=== PATIENT | male | born 1945 | race Caucasian/White ===

== ENCOUNTER 2016-11-15 12:14 | Inpatient (IN) | payer MEDICARE, OTHER ==
[~2016-11-15] VITALS: Ht 167.6 cm; Wt 66.0 kg
[~2016-11-15 12:14] MED LIST changes: -AMLO10TA2 PO; -ATOR1TAB19 PO; -CELE10TA PO; -CIPR500T3 PO; -FAMO1TAB11 PO; -FAMO1TAB25 PO; -LEVE1INJ5 SC; -METO50TA7 PO
[2016-11-15] MEDS ORDERED: FAMO1TAB25 PO (12:26)
[2016-11-15] MEDS ORDERED: LEVE1INJ5 SC ×2 (12:26→15:16)
[2016-11-15 13:30] LABS: BASO # 0.1 10^3/uL (0.0-0.2); BASO % 0.4 % (0.0-1.0); EOS # 0.5 10^3/uL (0.0-0.50); EOS % 4.8 % (0.0-3.0); IMMATURE GRANULOCYTE % 0.4 % (0-0); LYMPH # 3.2 10^3/uL (1.5-4.5); LYMPH % 28.1 % (24.0-44.0); MEAN CORPUSCULAR HEMOGLOBIN 27.6 pg (27.0-33.0); MEAN CORPUSCULAR HGB CONC 32.3 g/dl (32.0-36.5); MEAN CORPUSCULAR VOLUME 85.5 fl (80.0-96.0); MONO # 0.8 10^3/uL (0.0-0.8); MONO % 7.2 % (0.0-5.0); NEUTROPHILS # 6.6 10^3/uL (1.8-7.7); NEUTROPHILS % 59.1 % (36.0-66.0); PLATELET COUNT, AUTOMATED 414 10^3/uL (150-450); RED CELL DISTRIBUTION WIDTH 14.6 % (11.5-14.5); WHITE BLOOD COUNT 11.2 10^3/uL (4.0-10.0)
[2016-11-15] MEDS: NS 1,000 ML IV SCH ×2 (13:40→15:42)
[2016-11-15 13:57] LABS: ANION GAP 4 MEQ/L (8-16); BLOOD UREA NITROGEN 41 MG/DL (7-18); CARBON DIOXIDE LEVEL 27 MEQ/L (21-32); CHLORIDE LEVEL 100 MEQ/L (98-107); CREATININE FOR GFR 2.86 MG/DL (0.70-1.30); GLOMERULAR FILTRATION RATE 23.4 (>42); GLUCOSE, FASTING 361 MG/DL (83-110); SODIUM LEVEL 131 MEQ/L (136-145)
[2016-11-15 14:14] LABS: POTASSIUM SERUM 5.8 MEQ/L (3.5-5.1)
--- NOTE | 2016-11-15 15:12 | HPEPDOC ---
[facility] Medical History & Physical Date of Admission Nov 15, 2016 History and Physical ATTENDING: PCP: Nicolette Feldman [employer] Urologist. Dr Castorena/ Dr Samia Lind. Heme/Onc. Dr Jorge CC: abnormal labs HPI: 70yoM with a past medical history significant for prostate Ca, ureteral obstruction, h/o Rt Nephrostomy tube as per Urology [place] 07/05. Pt states is was due to be changed 10/05 but that was postponed related to scheduling issues. Pt was referred to Heme/Onc as per Dr Castorena related to Prostate Ca. Appt was today, following labs her was referred to ED related to abnormal values. Pt states his nephrostomy tube has been draining normally. He has had no urinary complaints, pain, change in color or odor and no drainage or erythema at nephrostomy site. Denies any fevers, chills, weakness, fatigue, DOLAN, CP, SOB, cough, palpitations, abdominal pain, N/V/D or changes in bowel or bladder habits. Upon presentation to the hospital the patient was found to have hyperkalemia/EZRA , thus the hospitalist team was consulted. PMHx: CAD/CABG/ID x 2 Ureteral obstruction/Rt ureteral stent 10/04 Urinary retention prostatitis BPH Prostate CA HLD hypokalemia COPD PAF IDDM depression GERD PSHX: CABG RLE fx repair cholecystectomy Cystoscopy, electrovaporization prostate, retrograde pyelogram, Ureteral stent Rt 10/04. Raffaele. Left nephrostomy tube 07/05. Urology [facility] SOCHX: Resides in: [facility] Marital Status: Kids: none Employment: retired [employer] Tobacco use: quit 30 years ago ETOH: denies Illicit Drugs: Denies Advanced directives: MOLST not available, states DNR FAMHX: Mother: breast Ca Father stomach Ca Siblings: Alive, DM, CVA ROS: As noted in HPI, otherwise 11pt ROS of systems reviewed and unremarkable. PE: GEN: 70yoM, appears stated age. Well-nourished, well developed. No acute distress. Alert and oriented x 3. Pleasant, interactive. HEENT: Normocephalic, atraumatic. Pupils are equal, round, and reactive to light. Extraocular movements are intact. No nystagmus appreciated. Sclera are nonicteric. Conjunctiva without injection. Nose midline. Nasal turbinates without bogginess. EACs both patent BL. TMs both visualized and flynn with good cone of light, no bulging or erythema. No facial asymmetry. Moist mucous membranes. Dentition fair. Pharynx pink and moist, no cobblestoning. Neck supple , trachea midline. No lymphadenopathy or thyromegaly appreciated. CHEST: Regular rate and rhythm, +S1, +S2 LUNGS: Clear to auscultation bilaterally. No wheezes, rales, or rhonchi. Breathing appears symmetric and easy. Patient is speaking in full sentences. No accessory muscle use. ABD: Round, soft, non-tender, non-distended. +Bowel sounds throughout. No rebound or guarding. No costovertebral angle tenderness. Nephrostomy tube present left side draining urine. EXT: Pulses 2+ bilaterally dorsalis pedis and radial. No lower extremity edema appreciated. SKIN: Rawson, dry, warm. Capillary refill <2sec. No rashes. NEURO: Alert and oriented x 3. Cranial nerves III-XII are intact. No focal deficits appreciated. CXR: pending EKG: SB 51 bpm. A&P: 70yoM with a past medical history significant for prostate Ca, ureteral obstruction, h/o Rt Nephrostomy tube as per Urology [place] 07/05. Pt states is was due to be changed 10/05 but that was postponed related to scheduling issues. Pt was referred to Heme/Onc as per Dr Castorena related to Prostate Ca. Appt was today, following labs her was referred to ED related to abnormal values. 1. The patient will be admitted to PCU for at least [address] Collins's service. Pt is discussed with Dr Irby. 2. EZRA. SCr 2.86. Previous baseline in the system was 0.8. UC/BC pending. IVF x 1 liter in ED. Cont with IVF at 75cc/hr. CT A&P pending to evaluate for obstruction given extensive history. Per patient, nephrostomy tube has been draining as usual. 3. Hyperkalemia. Kayexalate 15gm x 1, recheck at 6 pm. Likely related to EZRA. 4. Hyponatremia. IVF x 1 liter in ED. IVF at 75cc/hr. Recheck labs at 6pm. 5. H/O Ureteral obstruction/Nephrostomy tube 07/05. Pt states was due to be changed 10/05 but that this was rescheduled and has appt at [facility] next week to be changed. Consider Urology Clt pending CT results. 6. H/O BPH/Prostate Ca. Flomax/Proscar. Currently has been receiving injection Q6mo as per Urology in [place]. Was referred to Dr Jorge for opinion today. 7. CAD/ID/CABG. Metoprolol with hold parameters/ [id number]/Statin. 8. HTN. Metoprolol/Norvasc with hold parameters, SBP 145 in ED. 9. HLD. Statin. 10. IDDM. CC diet. Levemir/SSI 11. PAF. EKG Sinus rhythm. 12. depression. Celexa. 13. GERD. Pepcid. DVT prophylaxis. The patient is a DNR per pt, copy of MOLST requested. Vital Signs Vital Signs Date Time Temp Pulse Resp B/P (MAP) Pulse Ox O2 Delivery O2 Flow Rate FiO2 11/15/16 13:59 50 97 11/15/16 13:58 11/15/16 12:14 97.2 16 Room Air Laboratory Data Labs 24H Laboratory Tests 2 11/15/16 13:18: White Blood Count 11.2H, Red Blood Count 3.66L, Hemoglobin 10.1L, Hematocrit 31.3L, Mean Corpuscular Volume 85.5, Mean Corpuscular Hemoglobin 27.6, Mean Corpuscular Hemoglobin Concent 32.3, Red Cell Distribution Width 14.6H, Platelet Count 414, Neutrophils (%) (Auto) 59.1, Lymphocytes (%) (Auto) 28.1, Monocytes (%) (Auto) 7.2H, Eosinophils (%) (Auto) 4.8H, Basophils (%) (Auto) 0.4 , Neutrophils # (Auto) 6.6, Lymphocytes # (Auto) 3.2, Monocytes # (Auto) 0.8, Eosinophils # (Auto) 0.5, Basophils # (Auto) 0.1, Immature Granulocyte # (Auto) 0.0, Nucleated Red Blood Cells % (auto) 0.0, Anion Gap 4L, Glomerular Filtration Rate 23.4L, Blood Urea Nitrogen 41H, Creatinine 2.86H, Sodium Level 131L, Potassium Level 5.8H, Chloride Level 100, Carbon Dioxide Level 27, Calcium Level 9.0, Total Creatine Kinase 72, Creatine Kinase MB 1.0, Creatine Kinase MB Relative Index 1.38, Troponin I < 0.02, Lipase 125, Thyroid Stimulating Hormone (TSH) 1.680 CBC/BMP Laboratory Tests 11/15/16 13:18 Red Blood Count 3.66 L, Mean Corpuscular Volume 85.5, Mean Corpuscular Hemoglobin 27.6, Mean Corpuscular Hemoglobin Concent 32.3, Red Cell Distribution Width 14.6 H, Neutrophils (%) (Auto) 59.1, Lymphocytes (%) (Auto) 28.1, Monocytes (%) (Auto) 7.2 H, Eosinophils (%) (Auto) 4.8 H, Basophils (%) ( Auto) 0.4, Neutrophils # (Auto) 6.6, Lymphocytes # (Auto) 3.2, Monocytes # (Auto ) 0.8, Eosinophils # (Auto) 0.5, Basophils # (Auto) 0.1, Calcium Level 9.0, Total Creatine Kinase 72 Home Medications Scheduled Amlodipine Besylate (Amlodipine Besylate) 10 Mg Tab, 10 MG PO DAILY Aspirin (Aspirin Low Dose) 81 Mg Tab, 81 MG PO DAILY Atorvastatin Calcium (Atorvastatin Calcium) 10 Mg Tab, 10 MG PO QHS Cholecalciferol (Vitamin D) 1,000 Unit Tab, 1,000 UNIT PO QHS Citalopram Hydrobromide (Celexa) 10 Mg Tab, 10 MG PO DAILY Famotidine (Famotidine) 20 Mg Tab, 20 MG PO QHS Finasteride (Finasteride) 5 Mg Tab, 5 MG PO DAILY Insulin Detemir (Levemir Flextouch) 100 Unit/Ml Inj, 26 UNIT SC QAM Insulin Detemir (Levemir Flextouch) 100 Unit/Ml Inj, 20 UNIT SC QPM Metoprolol Tartrate (Metoprolol Tartrate) 50 Mg Tab, 50 MG PO QHS Ondansetron HCl (Zofran) 4 Mg Tab, 4 MG PO BID Tamsulosin Hydrochloride (Flomax) 0.4 Mg Cap, 0.4 MG PO DAILY Allergies Coded Allergies: Penicillins (Verified Allergy, Unknown, 10/01/15) Attending Note Attending Note I have seen and examined the above patient and agree with the H and P as documented by Ms. Mao. Amy Mao Nov 15, 2016 15:12 MERVIN IRBY Nov 15, 2016 17:47
[2016-11-15] MEDS ORDERED: AMLO10TA2 PO (15:16)
[2016-11-15] MEDS ORDERED: ATOR1TAB19 PO (15:16)
[2016-11-15] MEDS ORDERED: METO50TA7 PO (15:16)
[2016-11-15] MEDS ORDERED: FAMO1TAB11 PO (15:16)
[2016-11-15] MEDS ORDERED: CELE10TA PO (15:16)
--- NOTE | 2016-11-15 15:29 | REP ---
HISTORY: Renal failure. COMPARISON: 01/26/2010. Since the last examination, the patient has undergone median sternotomy. Mild cardiomegaly is suspected. The interstitial markings are slightly increased but there is no evidence of pulmonary vascular redistribution or other findings suggestive of interstitial edema. The pleural angles are again seen to be sharp. The osseous structures are stable and intact. IMPRESSION: Mild fibrotic changes are suspected. There is no betzy evidence of pulmonary edema, however, the heart is mildly enlarged. This needs to be correlated clinically with appropriate followup. Signed by Blu Neff DO 11/15/2016 03:47 P
[2016-11-15] MEDS ORDERED: GLUCOSE 4 GM CHEW TABLET PO PRN (15:45)
[2016-11-15] MEDS ORDERED: GLUCAGON FOR INJ 1 MG VIAL (J1610) SC PRN (15:45)
[2016-11-15] MEDS ORDERED: DEXTROSE 50% 50 ML SYRINGE IV PRN (15:45)
[2016-11-15] MEDS ORDERED: SOD POLYSTYRENE SULFONATE SUSP 15 GM/60 ML UD PO ONE (15:45)
[2016-11-15 17:04] LABS: YEAST LIKE CELL URINE AUTO SMALL
[2016-11-15] MEDS: HumaLOG INSULIN (NovoLOG) PER UNIT SC SCH ×2 (18:06→20:02)
[2016-11-15 18:15] VITALS: BP 148/68
[2016-11-15 18:27] LABS: CALCIUM LEVEL 9.5 MG/DL (8.8-10.2); CREATININE FOR GFR 2.65 MG/DL (0.70-1.30); GLOMERULAR FILTRATION RATE 25.5 (>42); POTASSIUM SERUM 4.9 MEQ/L (3.5-5.1)
[2016-11-15] MEDS: CIPROFLOXACIN 400 MG in APPROPRIATE DILUENT 1 EA IV SCH (19:44)
[2016-11-15] MEDS: LEVEMIR (INSULIN DETEMIR) 1 UNITS/0.01ML SC SCH (19:44)
[2016-11-15] MEDS: ONDANSETRON 4 MG TAB (S0181) PO SCH ×2 (19:45→19:49)
[2016-11-15] MEDS: FAMOTIDINE 20 MG TAB PO SCH (19:45)
[2016-11-15] MEDS: ATORVASTATIN 10 MG TAB PO SCH (19:45)
[2016-11-15] MEDS: METOPROLOL TART 50 MG TAB PO SCH (19:47)
[2016-11-15] MEDS: VITAMIN D 1,000 INTERNATIONAL UNITS TABLET PO SCH (19:48)
[2016-11-15 20:00] VITALS: BP 140/60
[2016-11-15] MEDS ORDERED: HEPARIN SOD (PORCINE) 5000 UNITS/ML VIAL SQ SCH (22:00)
--- NOTE | 2016-11-15 22:49 | SMCUROLCON ---
Urology Consultation General Date of Consultation 11/15/16 Reason For Consultation This patient is seen for Hyperkalemia,Renal Failure. History of Present Illness This is a 70 y/o M w/ metastatic prostate cancer, admitted to the hospital for EZRA. He was seen previously by me for BPH, but has more recently been followed by urology in [place]. Upon admission here, a CT A/P was performed and was notable for right hydroureteronephrosis down to the level of the bladder and no hydronephrosis on the left w/ a nephrostomy tube in place. He notes that a month ago he also had a nephrostomy tube on the right but it fell out. His urologist wanted to have it replaced, but the patient refused to do so, noting that he was doing fine. He denies abdominal or flank pain. He denies nausea or vomiting. Past Medical History Medical History see HPI Surgical Hstory TURP Medications Current Medications Current Medications Amlodipine Besylate (Norvasc) 10 mg DAILY PO ; Start 11/16/16 at 09:00; Stop at 08:59 Aspirin (Ecotrin) 81 mg DAILY PO ; Start 11/16/16 at 09:00; Stop 12/16/16 at 08 :59 Atorvastatin Calcium (Lipitor) 10 mg QHS PO Last administered on 11/15/16 19: 45; Start 11/15/16 at 21:00; Stop 12/15/16 at 20:59 Ciprofloxacin 400 mg/IV Miscellaneous Supplies 200 ml @ 200 mls/hr Q12H IV Last administered on 11/15/16 19:44; Start 11/15/16 at 19:00; Stop 11/22/16 at 18:59 Citalopram Hydrobromide (CeleXA) 10 mg DAILY PO ; Start 11/16/16 at 09:00; Stop 12/16/16 at 08:59 Dextrose (Dextrose 50%) 25 ml ASDIRECTED PRN IV SEE LABEL COMMENTS; Start 11/15 at 15:45; Stop 12/15/16 at 15:44 Famotidine (Pepcid) 20 mg QHS PO Last administered on 11/15/16 19:45; Start at 21:00; Stop 12/15/16 at 20:59 Finasteride (Proscar) 5 mg DAILY PO ; Start 11/16/16 at 09:00; Stop 12/16/16 at 08:59 Glucagon (Glucagon) 1 mg ASDIRECTED PRN SC SEE LABEL COMMENTS; Start 11/15/16 at 15:45; Stop 12/15/16 at 15:44 Glucose (Glucose) 16 GM ASDIRECTED PRN PO SEE LABEL COMMENTS; Start 11/15/16 at 15:45; Stop 12/15/16 at 15:44 Heparin Sodium (Porcine) (Heparin) 5,000 units Q8H SQ ; Start 11/15/16 at 22:00 ; Stop 11/15/16 at 22:00; Status DC Home Med (Med Rec Complete!) ASDIRECTED XX ; Start 11/15/16 at 15:30; Stop at 15:30; Status DC Insulin Detemir (Levemir Insulin) 20 units QHS SC Last administered on 19:44; Start 11/15/16 at 21:00; Stop 12/15/16 at 20:59 Insulin Detemir (Levemir Insulin) 26 units DAILY SC ; Start 11/16/16 at 09:00; Stop 12/16/16 at 08:59 Insulin Human Lispro (HumaLOG INSULIN) See Protocol Table AC SC Last administered on 11/15/16 18:06; Start 11/15/16 at 17:30; Stop 12/15/16 at 17: 29 Insulin Human Lispro (HumaLOG INSULIN) See Protocol Table QHS SC ; Start at 21:00; Stop 12/15/16 at 20:59 Metoprolol Tartrate (Lopressor) 50 mg QHS PO Last administered on 11/15/16 19: 47; Start 11/15/16 at 21:00; Stop 12/15/16 at 20:59 Ondansetron HCl (Zofran) 4 mg BID PO ; Start 11/15/16 at 21:00; Stop 12/15/16 at 20:59 Sodium Chloride 1,000 ml @ 75 mls/hr [id number] IV ; Start 11/15/16 at 15:42; Stop 12/15/16 at 15:41 Sodium Chloride 1,000 ml @ 100 mls/hr Q10H IV Last administered on 11/15/16 13:40; Start 11/15/16 at 12:51; Stop 12/15/16 at 12:50 Tamsulosin HCl (Flomax) 0.4 mg DAILY PO ; Start 11/16/16 at 09:00; Stop at 08:59 Vitamin D (Vitamin D) 1,000 units QHS PO Last administered on 11/15/16t 19:48; Start 11/15/16 at 21:00; Stop 12/15/16 at 20:59 Allergies Allergies: Coded Allergies: Penicillins (Verified Allergy, Unknown, 10/01/15) Review of Systems Constitutional: Denies: Fever, Chills, Sweats, Weakness, Malaise ENT: Denies: Head Aches Skin: Denies: Rash, Lesions, Breakdown Pulmonary: Denies: Dyspnea, Cough Cardiovascular: Denies Chest Pain, Denies Palpitations Gastrointestinal: Denies: Nausea, Vomiting, Abdominal Pain Musculoskeletal: Denies: Neck Pain, Back Pain Psych: Reports: Mood Normal Physical Examination General Exam: Alert Chest Exam: Clear to auscultation Heart Exam: Rate Normal, Regular Rhythm Abdomen Exam: Soft, No: Tenderness Male Exam left nephrostomy tube draining clear urine Skin Exam: Nl turgor and temperature Psych Exam: Mental status NL, Mood NL Vital Signs/I&O Vital Signs Date Time Temp Pulse Resp B/P (MAP) Pulse Ox O2 Delivery O2 Flow Rate FiO2 11/15/16 20:00 97.4 51 18 140/60 (86) 97 Room Air I&O- Last 24 Hours up to 6 AM 11/16/16 06:00 Intake Total 240 ml Output Total 875 ml Balance -635 ml Laboratory Data 24H Labs Laboratory Tests 2 11/15/16 13:18: White Blood Count 11.2H, Red Blood Count 3.66L, Hemoglobin 10.1L, Hematocrit 31.3L, Mean Corpuscular Volume 85.5, Mean Corpuscular Hemoglobin 27.6, Mean Corpuscular Hemoglobin Concent 32.3, Red Cell Distribution Width 14.6H, Platelet Count 414, Neutrophils (%) (Auto) 59.1, Lymphocytes (%) (Auto) 28.1, Monocytes (%) (Auto) 7.2H, Eosinophils (%) (Auto) 4.8H, Basophils (%) (Auto) 0.4 , Neutrophils # (Auto) 6.6, Lymphocytes # (Auto) 3.2, Monocytes # (Auto) 0.8, Eosinophils # (Auto) 0.5, Basophils # (Auto) 0.1, Immature Granulocyte # (Auto) 0.0, Nucleated Red Blood Cells % (auto) 0.0, Anion Gap 4L, Glomerular Filtration Rate 23.4L, Blood Urea Nitrogen 41H, Creatinine 2.86H, Sodium Level 131L, Potassium Level 5.8H, Chloride Level 100, Carbon Dioxide Level 27, Calcium Level 9.0, Total Creatine Kinase 72, Creatine Kinase MB 1.0, Creatine Kinase MB Relative Index 1.38, Troponin I < 0.02, Lipase 125, Thyroid Stimulating Hormone (TSH) 1.680 11/15/16 16:45: Urine Appearance CLEAR, Urine Color STRAW, Urine pH 6.0, Urine Specific Palmer 1.007, Urine Protein NEGATIVE, Urine Glucose (UA) 3+H, Urine Ketones NEGATIVE, Urine Urobilinogen 0.2, Urine Bilirubin NEGATIVE, Urine Leukocyte Esterase 3+H, Urine Blood NEGATIVE, Urine Nitrite POSITIVE, Urine WBC (Auto) 32H, Urine RBC ( Auto) 2, Urine Hyaline Casts (Auto) 0, Urine Bacteria (Auto) 1+H, Urine Squamous Epithelial Cells 0, Urine Mucus (Auto) SMALL, Urine Yeast-Like Cells ( Auto) SMALLH, Urine Sperm (Auto) 11/15/16 17:52: Anion Gap 7L, Glomerular Filtration Rate 25.5L, Blood Urea Nitrogen 43H, Creatinine 2.65H, Sodium Level 133L, Potassium Level 4.9, Chloride Level 103, Carbon Dioxide Level 23, Calcium Level 9.5 11/15/16 18:01: Bedside Glucose (Misc Panel) 165H 11/15/16 20:01: Bedside Glucose (Misc Panel) 231H CBC/BMP Laboratory Tests 11/15/16 13:18 Red Blood Count 3.66 L, Mean Corpuscular Volume 85.5, Mean Corpuscular Hemoglobin 27.6, Mean Corpuscular Hemoglobin Concent 32.3, Red Cell Distribution Width 14.6 H, Neutrophils (%) (Auto) 59.1, Lymphocytes (%) (Auto) 28.1, Monocytes (%) (Auto) 7.2 H, Eosinophils (%) (Auto) 4.8 H, Basophils (%) ( Auto) 0.4, Neutrophils # (Auto) 6.6, Lymphocytes # (Auto) 3.2, Monocytes # (Auto ) 0.8, Eosinophils # (Auto) 0.5, Basophils # (Auto) 0.1, Calcium Level 9.0, Total Creatine Kinase 72 11/15/16 17:52 Calcium Level 9.5 Microbiology Microbiology 11/15/16 Blood Culture, Received Pending 11/15/16 Blood Culture, Received Pending 11/15/16 Urine Culture, Received Pending Assessment This is a 70 y/o M w/ metastatic prostate cancer and b/l 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 I explained to the patient that the EZRA is likely due to his right nephrostomy tube falling out and his kidney not draining. I recommended replacing it and he agreed. Plan - recommend radiology consult for right nephrostomy tube placement tomorrow - assuming the patient improves w/ right kidney drainage, he will need to keep both tubes in place and follow up w/ his urologist in [place] to monitor them and decide on when they should be changed next SHABNAM GAN MD Nov 15, 2016 22:49
[2016-11-16] VITALS: BP 143/67
[2016-11-16] MEDS: NS 1,000 ML IV SCH ×5 (00:16→19:15)
[2016-11-16 04:23] VITALS: BP 161/73
[2016-11-16 05:54] LABS: BASO # 0.1 10^3/uL (0.0-0.2); BASO % 0.5 % (0.0-1.0); EOS # 0.7 10^3/uL (0.0-0.50); EOS % 6.9 % (0.0-3.0); IMMATURE GRANULOCYTE % 0.4 % (0-0); LYMPH # 3.4 10^3/uL (1.5-4.5); LYMPH % 32.5 % (24.0-44.0); MEAN CORPUSCULAR HEMOGLOBIN 27.2 pg (27.0-33.0); MEAN CORPUSCULAR HGB CONC 32.4 g/dl (32.0-36.5); MONO % 9.2 % (0.0-5.0); NEUTROPHILS # 5.4 10^3/uL (1.8-7.7); NEUTROPHILS % 50.5 % (36.0-66.0); PLATELET COUNT, AUTOMATED 377 10^3/uL (150-450); RED CELL DISTRIBUTION WIDTH 14.4 % (11.5-14.5); WHITE BLOOD COUNT 10.6 10^3/uL (4.0-10.0)
[2016-11-16] MEDS: CIPROFLOXACIN 400 MG in APPROPRIATE DILUENT 1 EA IV SCH ×2 (06:10→19:24)
[2016-11-16 06:16] LABS: ALBUMIN/GLOBULIN RATIO 0.67 (1.00-1.93); BILIRUBIN,TOTAL 0.4 MG/DL (0.2-1.0); CALCIUM LEVEL 9.1 MG/DL (8.8-10.2); CREATININE FOR GFR 2.62 MG/DL (0.70-1.30); GLOMERULAR FILTRATION RATE 25.9 (>42); MAGNESIUM LEVEL 1.7 MG/DL (1.8-2.4); POTASSIUM SERUM 4.9 MEQ/L (3.5-5.1); TOTAL PROTEIN 7.5 GM/DL (6.4-8.2)
[2016-11-16] MEDS: HumaLOG INSULIN (NovoLOG) PER UNIT SC SCH ×4 (07:30→20:33)
--- NOTE | 2016-11-16 07:57 | REP ---
CT of the abdomen pelvis without IV and oral contrast: There are no comparison CT studies. According to the film file this patient had a right ureteral stent placed on 10/01/2015. This stent has been removed and is no longer present. There is right hydronephrosis and hydroureter. There is somewhat asymmetric wall thickening of the posterior inferior bladder wall. This could represent a bladder mass or a prostate mass extending into the bladder. Extends to the right trigone and may be responsible for the right hydronephrosis and also extends almost to the left trigone. There is no left hydronephrosis. However, there is a left renal percutaneous nephrostomy. The visualized lung diaz are unremarkable. The unenhanced hepatic parenchyma demonstrates a cyst in the medial segment of the hepatic left lobe adjacent to the gallbladder fossa. There are surgical clips in the gallbladder fossa. The pancreas and spleen are unremarkable. The adrenals are unremarkable. Abdominal aorta is unremarkable except for calcified atheroma. I suspect there is aortic stenosis at the aortic bifurcation. The bowel and mesentery are unremarkable. Pelvis: The appendix is unremarkable. There is no ascites or adenopathy. There is wall thickening of the bladder posteriorly inferiorly as described, possibly a mass. There is no pelvic adenopathy or ascites. The pelvic bowel loops are unremarkable. Impression: Possible bladder mass extending to the right trigone almost to the left trigone. There is right hydronephrosis and hydroureter. There is a left percutaneous nephrostomy. There is no left hydronephrosis. Question stenosis of the distal aorta just above the bifurcation. Hepatic cyst. Cholecystectomy. No ascites or adenopathy. Signed by Damon Truong MD 11/16/2016 07:49 A
[2016-11-16 08:00] VITALS: BP 180/74
[2016-11-16] MEDS: ASPIRIN 81 MG ENTERIC TAB PO SCH (09:56)
[2016-11-16] MEDS: FINASTERIDE 5 MG TAB PO SCH (09:56)
[2016-11-16] MEDS: amLODIPine 10 MG TAB PO SCH (09:56)
[2016-11-16] MEDS: CitaloPRAM (CeleXA) 10 MG TABLET PO SCH (09:56)
[2016-11-16] MEDS: TAMSULOSIN 0.4 MG CAP PO SCH (09:56)
[2016-11-16] MEDS: LEVEMIR (INSULIN DETEMIR) 1 UNITS/0.01ML SC SCH ×2 (09:57→20:27)
[2016-11-16] MEDS: ONDANSETRON 4 MG TAB (S0181) PO SCH ×2 (09:57→20:27)
--- NOTE | 2016-11-16 11:52 | IPN ---
DATE: 11/16/2016 Mr. Baird is feeling good today. He has no complaints of pain, chest pain or shortness of breath. He says that he is planning to get his right nephrostomy tube today and I informed him that we are also planning to replace the left and he is open to that plan. Temperature is 98.1, pulse 50, respiratory rate 16, blood pressure 180/74, 98% on room air. Net fluid status. He is awake, appropriately interactive, pleasantly conversant. Neck is thick. No obvious elevation of jugular venous pulse (JVP). Breathing is symmetrical, diminished. I-to-E ratio is 1:3. Speaking in complete sentences. No accessory muscle use. Heart is distant sounding. Normal S1 and S2. Radial pulses 2+. Abdomen is soft, doughy, nontender. White cell count 10.6, hemoglobin 10, platelets 377. BUN 39, creatinine 2.62, sodium is 137. My assessment is as follows: This is a 70-year-old with acute renal failure and obstructive uropathy. Plan is as follows: 1. The patient's acute renal failure is continuing. Planned for nephrostomy tube replacement on the left and placement on the right, which will likely result in improving renal function. It would appears as though his baseline creatinine should be around normal level based on what limited labs we have at this hospital. 2. Patient has hyperkalemia, which has resolved with the use of Kayexalate, although there are no recorded bowel movements. 3. The patient's hyponatremia has resolved with normal saline. 4. Patient has benign prostatic hypertrophy (BPH), prostate cancer. He has been seen by Dr. Castorena. 5. Patient has a history of coronary artery disease status post coronary artery bypass grafting (CABG). 6. Patient has hypertension. 7. Patient has hyperlipidemia. 8. Patient has insulin dependent diabetes. Continuing with insulin at this pont. 9. Patient has paroxysmal atrial fibrillation. Has been in sinus rhythm. 10. Patient has appropriate deep vein thrombosis (DVT) prophylaxis.
[2016-11-16 12:00] VITALS: BP 152/67
[2016-11-16 16:00] VITALS: BP 150/66
[2016-11-16 20:00] VITALS: BP 146/69
[2016-11-16] MEDS: FAMOTIDINE 20 MG TAB PO SCH (20:27)
[2016-11-16] MEDS: METOPROLOL TART 50 MG TAB PO SCH (20:27)
[2016-11-16] MEDS: ATORVASTATIN 10 MG TAB PO SCH (20:27)
[2016-11-16] MEDS: VITAMIN D 1,000 INTERNATIONAL UNITS TABLET PO SCH (20:27)
--- NOTE | 2016-11-16 20:38 | ECGEPIP ---
Stationary ECG Study [facility] - ED Test Date: 2016-11-15 Pat Name: NERY FELICIANO Department: Room: [place] [address] Gender: M [employer] Technician: kelsy : 1945 Requested By: CHANDRA AVINA Order Number: [id number] Reading MD: Meredith Cullen Measurements Intervals [place] Rate: 51 P: 70 NC: 179 QRS: 62 QRSD: 105 T: 48 QT: 427 QTc: 396 Interpretive Statements SINUS BRADYCARDIA NO PRIOR FOR COMPARISON Electronically Signed On 11-16-2016 20:38:19 EDT by Meredith Cullen
[2016-11-17] VITALS (12 sets, daily range): BP systolic 112–169; BP diastolic 56–75
[2016-11-17 05:54] LABS: BASO % 0.3 % (0.0-1.0); EOS # 0.7 10^3/uL (0.0-0.50); EOS % 5.6 % (0.0-3.0); IMMATURE GRANULOCYTE % 0.4 % (0-0); LYMPH # 2.9 10^3/uL (1.5-4.5); LYMPH % 24.9 % (24.0-44.0); MEAN CORPUSCULAR HEMOGLOBIN 27.6 pg (27.0-33.0); MEAN CORPUSCULAR HGB CONC 32.6 g/dl (32.0-36.5); MEAN CORPUSCULAR VOLUME 84.7 fl (80.0-96.0); MONO % 8.9 % (0.0-5.0); NEUTROPHILS % 59.9 % (36.0-66.0); PLATELET COUNT, AUTOMATED 375 10^3/uL (150-450); RED CELL DISTRIBUTION WIDTH 14.5 % (11.5-14.5); WHITE BLOOD COUNT 11.7 10^3/uL (4.0-10.0)
[2016-11-17] MEDS: CIPROFLOXACIN 500 MG TAB PO SCH ×2 (05:59→17:45)
[2016-11-17 06:29] LABS: ALBUMIN 2.8 GM/DL (3.2-5.2); ALBUMIN/GLOBULIN RATIO 0.65 (1.00-1.93); BILIRUBIN,TOTAL 0.3 MG/DL (0.2-1.0); CALCIUM LEVEL 9.2 MG/DL (8.8-10.2); CREATININE FOR GFR 2.84 MG/DL (0.70-1.30); GLOMERULAR FILTRATION RATE 23.6 (>42); MAGNESIUM LEVEL 1.8 MG/DL (1.8-2.4); POTASSIUM SERUM 4.9 MEQ/L (3.5-5.1); TOTAL PROTEIN 7.1 GM/DL (6.4-8.2)
[2016-11-17] MEDS: NS 1,000 ML IV SCH ×2 (08:02→18:25)
[2016-11-17] MEDS: HumaLOG INSULIN (NovoLOG) PER UNIT SC SCH ×4 (08:25→22:26)
[2016-11-17] MEDS ORDERED: ISOVUE-300 61% 50ML VIAL (Q9967) As Ordered ONE ×3 (08:52→09:12)
[2016-11-17] MEDS ORDERED: LIDOCAINE 2% MDV 20 ML VIAL As Ordered ONE (08:52)
[2016-11-17] MEDS: LEVEMIR (INSULIN DETEMIR) 1 UNITS/0.01ML SC SCH ×2 (09:00→22:26)
[2016-11-17] MEDS ORDERED: fentaNYL 100 MCG/2 ML INJECTION (J3010) As Ordered ONE (09:19)
[2016-11-17] MEDS ORDERED: MIDAZOLAM INJ 2 MG/2 ML VIAL (J2250) As Ordered ONE (09:20)
[2016-11-17 12:21] LABS: POTASSIUM SERUM 5.3 MEQ/L (3.5-5.1)
[2016-11-17] MEDS ORDERED: LEVEMIR (INSULIN DETEMIR) 1 UNITS/0.01ML SC ONE (13:15)
[2016-11-17] MEDS: CitaloPRAM (CeleXA) 10 MG TABLET PO SCH (13:38)
[2016-11-17] MEDS: ASPIRIN 81 MG ENTERIC TAB PO SCH (13:38)
[2016-11-17] MEDS: FINASTERIDE 5 MG TAB PO SCH (13:38)
[2016-11-17] MEDS: TAMSULOSIN 0.4 MG CAP PO SCH (13:38)
[2016-11-17] MEDS: amLODIPine 10 MG TAB PO SCH (13:38)
[2016-11-17] MEDS: ONDANSETRON 4 MG TAB (S0181) PO SCH ×2 (13:41→20:08)
--- NOTE | 2016-11-17 16:07 | IPN ---
DATE: 11/17/2016 Mr. Baird is feeling well this morning. He is a little disappointed that he did not get his nephrostomy tubes changed/placed yesterday. Plan is to do that today. He is currently nothing by mouth. Is wondering about the timing. During my evaluation, temperature is 98.3, pulse 58, respirations 18, blood pressure 169/75, 98% on room air. He is awake, appropriately interactive, pleasantly conversant. Positive fluid balance of 650. Breathing is symmetrical and rested. Heart is distant sounding. Normal S1, S2. No significant arrhythmia on the monitor. Abdomen is soft, doughy, nontender. White cell count 11.7, hemoglobin 9.7, somewhat trending downward, platelets of 375. BUN is 36, creatinine 2.84, potassium 4.9, repeated to 5.3. Urine culture has now grown Citrobacter and streptococcus group B, both of which would be covered by Cipro. ASSESSMENT: This is a 70-year-old with acute renal failure and obstructive uropathy. PLAN: 1. Acute renal failure continues. Will be alleviated today with nephrostomy tube placement. Nephrostomy tubes have been needed for some time, so I anticipate that he will resolve somewhat slowly in the postoperative period. In the meantime, will continue with ciprofloxacin, which should cover the pathogens he is growing. 2. Patient has intermittent hyperkalemia related to acute renal failure. 3. Patient has benign prostatic hypertrophy and prostate cancer. Being followed by Dr. Castorena intermittently. 4. Patient has coronary artery disease, status post CABG. 5. Patient has hypertension. 6. Patient has hyperlipidemia. 7. Patient has insulin-dependent diabetes, on insulin at this point. 8. Patient has paroxysmal atrial fibrillation. Rate is controlled. 9. Patient has appropriate deep vein thrombosis (DVT) prophylaxis.
--- NOTE | 2016-11-17 17:18 | REP ---
RIGHT PERCUTANEOUS NEPHROSTOMY CATHETER PLACEMENT AND A LEFT PERCUTANEOUS NEPHROSTOMY CATHETER EXCHANGE: The procedure was performed by RAFAEL Guidry under the direct supervision of Dr. Shaffer. The procedure along with its risks, benefits, and complications were discussed with the patient prior to the examination. Informed consent was obtained both verbally and written. The patient was identified in the interventional suite and placed in a prone position. Conscious sedation was given by the anesthesiologist. The patient was marked, prepped and draped in the usual sterile fashion. A procedural time-out was performed to ensure that the correct patient, site and procedure were being performed. The right kidney was interrogated with ultrasound. An appropriate site was chosen for needle entry and local infiltrative anesthesia was achieved using 2% lidocaine. Using ultrasound guidance a needle was advanced into the renal pelvis. A thin guidewire was placed. A vessel dilator was then placed over the thin guidewire and into the renal pelvis. The thin guidewire was removed and a stiff guidewire was placed. The vessel dilator was removed. An 8.5-[place]izen [place] Resolve catheter was advanced over the guidewire and into the renal pelvis. A 50/50 mixture of heparinized saline and x-ray contrast were used to verify catheter placement. The pigtail device was deployed. The catheter was then sutured to the patient's skin. A drainage bag was attached to it. At this point in the procedure we moved on to the left nephrostomy catheter replacement. A 50/50 solution containing heparinized saline and x-ray contrast was injected into the catheter to verify appropriate placement. The old catheter was still in good position. A stiff guidewire was introduced through the old catheter. The old catheter was then removed and an 8.5-Citizen [place] Resolve catheter was passed over the wire and into the renal pelvis. The guidewire was removed and a 50/50 mixture of heparinized saline and contrast was used to inject to verify placement. The pigtail device was deployed and the catheter was sutured to the patient's skin. The patient tolerated the procedure well and had no immediate complications. The catheters were dressed and the patient was moved from the interventional suite to the recovery area. 0.7 minutes of fluoroscopy time were utilized for this procedure. Reviewed by RAFAEL Hutchinson 11/17/2016 06:32 PEdited and Signed by Damon Shaffer MD 11/20/2016 04:10 P
[2016-11-17] MEDS: FAMOTIDINE 20 MG TAB PO SCH (20:07)
[2016-11-17] MEDS: ATORVASTATIN 10 MG TAB PO SCH (20:07)
[2016-11-17] MEDS: VITAMIN D 1,000 INTERNATIONAL UNITS TABLET PO SCH (20:07)
[2016-11-17] MEDS: METOPROLOL TART 50 MG TAB PO SCH (20:10)
--- NOTE | 2016-11-17 23:30 | ECGEPIP ---
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 LAST TRACING ON 13:26:01 Electronically Signed On 11-17-2016 23:30:09 EDT by Navneet Hernandez
--- NOTE | 2016-11-17 23:35 | ECGEPIP ---
Stationary ECG Study [facility] Test Date: 2016-11-17 Pat Name: NERY FELICIANO Department: Room: [place] [address] Gender: M Manager Utilities: JOHN : 1945 Requested By: ROSA ELENA Phan Order Number: [id number] Reading MD: Navneet Hernandez Measurements Intervals [place] Rate: 52 P: 69 [place]: 173 QRS: 67 QRSD: 105 T: 50 QT: 443 QTc: 416 Interpretive Statements SINUS BRADYCARDIA COMPARED TO THE LAST 2 TRACINGS IN THE SYSTEM, NO SIGNIFICANT CHANGES Electronically Signed On 11-17-2016 23:34:43 EDT by Navneet Hernandez
[2016-11-18] VITALS (7 sets, daily range): BP systolic 117–174; BP diastolic 53–77
[2016-11-18] MEDS: CIPROFLOXACIN 500 MG TAB PO SCH ×2 (05:24→17:17)
[2016-11-18 06:41] LABS: BASO # 0.1 10^3/uL (0.0-0.2); BASO % 0.6 % (0.0-1.0); EOS # 0.5 10^3/uL (0.0-0.50); EOS % 4.2 % (0.0-3.0); IMMATURE GRANULOCYTE % 0.3 % (0-0); LYMPH % 24.8 % (24.0-44.0); MEAN CORPUSCULAR HGB CONC 32.5 g/dl (32.0-36.5); MEAN CORPUSCULAR VOLUME 86.3 fl (80.0-96.0); MONO % 8.7 % (0.0-5.0); NEUTROPHILS # 7.3 10^3/uL (1.8-7.7); NEUTROPHILS % 61.4 % (36.0-66.0); PLATELET COUNT, AUTOMATED 351 10^3/uL (150-450); RED CELL DISTRIBUTION WIDTH 14.5 % (11.5-14.5); WHITE BLOOD COUNT 11.9 10^3/uL (4.0-10.0)
[2016-11-18 06:58] LABS: ALBUMIN 2.7 GM/DL (3.2-5.2); ALBUMIN/GLOBULIN RATIO 0.6 (1.00-1.93); BILIRUBIN,TOTAL 0.3 MG/DL (0.2-1.0); CREATININE FOR GFR 2.6 MG/DL (0.70-1.30); GLOMERULAR FILTRATION RATE 26.1 (>42); MAGNESIUM LEVEL 1.7 MG/DL (1.8-2.4); POTASSIUM SERUM 4.6 MEQ/L (3.5-5.1); TOTAL PROTEIN 7.2 GM/DL (6.4-8.2)
[2016-11-18] MEDS: amLODIPine 10 MG TAB PO SCH (08:46)
[2016-11-18] MEDS: TAMSULOSIN 0.4 MG CAP PO SCH (08:46)
[2016-11-18] MEDS: ASPIRIN 81 MG ENTERIC TAB PO SCH (08:46)
[2016-11-18] MEDS: FINASTERIDE 5 MG TAB PO SCH (08:46)
[2016-11-18] MEDS: CitaloPRAM (CeleXA) 10 MG TABLET PO SCH (08:46)
[2016-11-18] MEDS: ONDANSETRON 4 MG TAB (S0181) PO SCH ×2 (08:47→21:10)
[2016-11-18] MEDS: NS 1,000 ML IV SCH ×2 (08:47→21:10)
[2016-11-18] MEDS: HumaLOG INSULIN (NovoLOG) PER UNIT SC SCH ×4 (08:48→21:00)
[2016-11-18] MEDS ORDERED: PREVNAR 13 VACCINE SYRINGE (CPT CODE:90670) IM ONE (09:00)
[2016-11-18] MEDS: LEVEMIR (INSULIN DETEMIR) 1 UNITS/0.01ML SC SCH ×2 (09:58→21:09)
[2016-11-18] MEDS: METOPROLOL TART 50 MG TAB PO SCH ×2 (21:00→21:09)
[2016-11-18] MEDS: FAMOTIDINE 20 MG TAB PO SCH (21:09)
[2016-11-18] MEDS: VITAMIN D 1,000 INTERNATIONAL UNITS TABLET PO SCH (21:10)
[2016-11-18] MEDS: ATORVASTATIN 10 MG TAB PO SCH (21:10)
--- NOTE | 2016-11-19 05:18 | IPN ---
DATE OF SERVICE: 11/18/2016 Mr. Baird is feeling well today. He has no complaints of pain, chest pain, shortness of breath. Did tolerate placement of his nephrostomy tubes yesterday without difficulty. There was concern about peaked T waves and T wave changes postoperatively. CKs and troponins have been negative. He has had no significant arrhythmia on monitor. Temperature is 97.7, pulse 51, respiratory rate 17, blood pressure 174/77, which repeats to 134/68, 95% on room air. Intake and output (I and O) notable for a negative fluid balance of -208. He is having a good deal of urine output at this point. He is awake, appropriately interactive, pleasantly conversant. Breathing is symmetrical and rested. Heart is in a regular rate and rhythm. He has some caballero red drainage from his right nephrostomy tube and clear yellow urine on the left. Abdomen is soft, doughy, nontender. No significant lower extremity edema. White count 11.9, hemoglobin 10.2, and platelets of 351. BUN 36, creatinine 2.6 down from 2.8 with a potassium of 4.6, and sodium 134. My assessment is as follows: This is a 70-year-old with acute renal failure and obstructive uropathy. Plan is as follows: 1. Acute renal failure. This is improved with the removal of the obstruction. He is having what is most likely postobstructive diuresis. I would like to monitor him another 24 hours to make sure his renal function continues to improve and watch his electrolytes. Plan for possible discharge tomorrow. In the meantime, he continues on ciprofloxacin for multi-pathogen urinary tract infection (UTI). 2. Patient has had intermittent hyperkalemia related to acute renal failure. 3. Patient has benign prostatic hypertrophy and prostate cancer being followed by Dr. Castorena intermittently. 4. Patient has coronary artery disease status post coronary artery bypass graft (CABG). 5. Patient has hypertension. 6. Patient has hyperlipidemia. 7. Patient has insulin-dependent diabetes, on insulin, which is loosely controlled at this point. 8. Patient has paroxysmal atrial fibrillation. Rate is controlled. 9. Patient has appropriate deep venous thrombosis (DVT) prophylaxis.
[2016-11-19] MEDS: CIPROFLOXACIN 500 MG TAB PO SCH (05:34)
[2016-11-19 06:00] VITALS: BP 150/62
[2016-11-19 06:51] LABS: BASO # 0.1 10^3/uL (0.0-0.2); BASO % 0.5 % (0.0-1.0); EOS # 0.7 10^3/uL (0.0-0.50); EOS % 6.6 % (0.0-3.0); IMMATURE GRANULOCYTE % 0.4 % (0-0); LYMPH # 2.7 10^3/uL (1.5-4.5); LYMPH % 25.3 % (24.0-44.0); MEAN CORPUSCULAR HEMOGLOBIN 28.6 pg (27.0-33.0); MEAN CORPUSCULAR HGB CONC 33.5 g/dl (32.0-36.5); MEAN CORPUSCULAR VOLUME 85.4 fl (80.0-96.0); MONO # 0.9 10^3/uL (0.0-0.8); NEUTROPHILS # 6.4 10^3/uL (1.8-7.7); NEUTROPHILS % 59.2 % (36.0-66.0); PLATELET COUNT, AUTOMATED 358 10^3/uL (150-450); RED CELL DISTRIBUTION WIDTH 14.5 % (11.5-14.5); WHITE BLOOD COUNT 10.8 10^3/uL (4.0-10.0)
[2016-11-19 07:20] LABS: ALBUMIN 2.8 GM/DL (3.2-5.2); ALBUMIN/GLOBULIN RATIO 0.65 (1.00-1.93); BILIRUBIN,TOTAL 0.3 MG/DL (0.2-1.0); CALCIUM LEVEL 8.9 MG/DL (8.8-10.2); CREATININE FOR GFR 2.55 MG/DL (0.70-1.30); GLOMERULAR FILTRATION RATE 26.7 (>42); MAGNESIUM LEVEL 1.6 MG/DL (1.8-2.4); POTASSIUM SERUM 4.5 MEQ/L (3.5-5.1); TOTAL PROTEIN 7.1 GM/DL (6.4-8.2)
[2016-11-19] MEDS: HumaLOG INSULIN (NovoLOG) PER UNIT SC SCH ×2 (08:13→12:25)
[2016-11-19] MEDS: TAMSULOSIN 0.4 MG CAP PO SCH (08:14)
[2016-11-19] MEDS: CitaloPRAM (CeleXA) 10 MG TABLET PO SCH (08:14)
[2016-11-19] MEDS: FINASTERIDE 5 MG TAB PO SCH (08:14)
[2016-11-19] MEDS: ASPIRIN 81 MG ENTERIC TAB PO SCH (08:14)
[2016-11-19] MEDS: ONDANSETRON 4 MG TAB (S0181) PO SCH (08:14)
[2016-11-19 08:15] VITALS: BP 139/66
[2016-11-19] MEDS: amLODIPine 10 MG TAB PO SCH (08:15)
[2016-11-19] MEDS: LEVEMIR (INSULIN DETEMIR) 1 UNITS/0.01ML SC SCH (08:16)
[2016-11-19] MEDS: NS 1,000 ML IV SCH (10:22)
[2016-11-19] MEDS ORDERED: CIPR500T3 PO (12:34)
--- NOTE | 2016-11-19 15:41 | DSES ---
DATE OF ADMISSION: 11/15/2016 DATE OF DISCHARGE: Specialists involved in his care included interventional radiology and Dr. Castorena. No complications of his stay. Procedures performed during his stay included replacement of the left-sided urostomy tube and placement of the right. DISCHARGE DIAGNOSES: 1. Acute obstructive uropathy. 2. Acute renal failure. 3. Hyperkalemia. 4. Hyponatremia. 5. Benign prostatic hypertrophy. 6. History of prostate cancer. 7. Coronary artery disease status post coronary artery bypass graft (CABG). 8. Hypertension. 9. Hyperlipidemia. 10. Insulin dependent diabetes. 11. Paroxysmal atrial fibrillation. 12. Urinary tract infection related to obstruction and previous stenting. The following is a summary of his presentation: This is a 70-year-old with history of nephrostomy tubes. The patient presented to the hospital with abnormal labs and was found to have hyperkalemia, acute kidney injury, was admitted to the hospitalist service and was seen in consultation by urology. He has had a nephrostomy tube out on the right for a month prior to this presentation. He was due to have his left nephrostomy tube replaced within a week. The patient went to interventional radiology and had a right nephrostomy tube placed, left nephrostomy tube was replaced. He began to have improving creatinine, hyperkalemia resolved. The patient's renal function is improving and he is quite persistent that he would like to go home, which I believe is not unreasonable in the current setting. The plan is to have him followup with his urologist after discharge as well as Izabela Feldman for labs. He is without complaint, ambulating without difficulty, tolerating a diet, no nausea, no vomiting, has good drainage from both nephrostomy tubes. Temperature 97.7, pulse 60, respiratory rate 20, blood pressure 150/62, 97% on room air. Breathing is symmetrical and rested. Heart is distant sounding. Abdomen soft. Creatinine is 2.55, which is still higher than his baseline, but trending downward. BUN 10.8 and hemoglobin 10.6. Discharge instructions include the following: Followup with Izabela Feldman within 1 week, his urologist in [place] for followup this week. Activity and diet as tolerated. He was given a prescription for a basic metabolic panel (BMP) 11/21/2016, with results to Izabela Feldman. - continue ciprofloxacin 500 mg by mouth twice a day for ten tablets - Norvasc 10 mg daily - aspirin 81 mg by mouth daily - atorvastatin 10 mg daily - vitamin D supplement - Celexa 10 mg by mouth daily - famotidine 20 mg by mouth daily at bedtime - finasteride 5 mg by mouth daily - continue home insulin as dosed with Levemir - metoprolol 50 mg by mouth daily at bedtime - Zofran 4 mg by mouth twice a day - Flomax 0.4 mg by mouth daily
== END 2016-11-19 15:35 | disposition home health service (06) | DRG 683 ==
LOC: M ED 12:14 → M ED INP 15:36 → M PCU 18:11 → M MSPAV 11-18 11:40
PROVIDERS: ADMIT Hospitalist; ATTEND Internal Medicine
PROC: 0T25X0Z Change Drainage Device in Kidney, External Approach (ICD-10-PCS; principal; 2016-11-17 12:00)
DX: N17.9 Acute kidney failure, unspecified (principal); E87.0 Hyperosmolality and hypernatremia; N39.0 Urinary tract infection, site not specified; Z85.46 Personal history of malignant neoplasm of prostate; N13.6 Pyonephrosis; N40.0 Benign prostatic hyperplasia without lower urinary tract symptoms; E87.5 Hyperkalemia; E78.5 Hyperlipidemia, unspecified; E11.9 Type 2 diabetes mellitus without complications; I48.0 Paroxysmal atrial fibrillation; Z66 Do not resuscitate; I25.10 Atherosclerotic heart disease of native coronary artery without angina pectoris; I10 Essential (primary) hypertension; Z79.82 Long term (current) use of aspirin; Z79.899 Other long term (current) drug therapy; J44.9 Chronic obstructive pulmonary disease, unspecified; K21.9 Gastro-esophageal reflux disease without esophagitis; F32.9 Major depressive disorder, single episode, unspecified; C61 Malignant neoplasm of prostate

== ENCOUNTER → 2016-11-15 | Outpatient (REF) | payer MEDICARE ==
[~2016-11-15] MED LIST: AMLO10TA2 PO; ASPI-101 PO; ATOR1TAB19 PO; CELE10TA PO; CELE20TA PO; CIPR500T3 PO; FAMO1TAB11 PO; FAMO1TAB25 PO; FINA5TAB2 PO; FLOM5CAP PO; K-TA10TA2 PO; LEVE1INJ5 SC; LIPI80TA PO; LISI-542 PO; LUBRICANT EYE OU; METO50TA7 PO; PRIL20CA9 PO; VITA100066 PO; ZOFR20TA PO; glucophage OR; lantus insulin SC; metoprolol OR
[2016-11-15 11:32] LABS: INR 0.97
== END ==
LOC: M LAB REF 11:08
PROVIDERS: ATTEND Internal Medicine Medical Oncology
DX: C61 Malignant neoplasm of prostate (principal)

== ENCOUNTER → 2017-01-01 | Outpatient (CLI) | payer MEDICARE, OTHER ==
[~2017-01-01] MED LIST changes: +AMLO10TA2 PO; +ATOR1TAB19 PO; +CELE10TA PO; +CIPR500T3 PO; +CIPROFLOXACIN 500 MG TAB As Ordered ONE; +FAMO1TAB11 PO; +FAMO1TAB25 PO; +ISOVUE-300 61% 50ML VIAL (Q9967) As Ordered ONE; +LEVE1INJ5 SC; +METO50TA7 PO
--- NOTE | 2017-01-02 13:27 | REP ---
The procedure was performed under the direct supervision of Dr. Shaffer CLINICAL HISTORY: Prostate cancer/bilateral hydronephrosis PROCEDURE: Bilateral nephrostomy catheter exchange Medications: 250 ml of Cipro p.o. EBL: Zero FLUORO TIME: 3.5 minutesCONTRAST: 15 ml of Isovue 300DEVICE USED: 2 8.5 F Nephrostomy (Resolve) catheters (right) Lot# [id number] (left) [id number] The risks and benefits of the procedure were explained to the patient and informed consent was obtained. The patient was brought into the interventional radiology suite. A time out procedure was performed. The patient was placed in the prone position . The existing indwelling catheters and the areas surrounding the insertion sites were prepped and draped in a sterile fashion. The right catheter was addressed first. Contrast was injected through the existing 8.5 [place] Nephrostomy catheter. Images demonstrate good catheter placement. The existing catheter was unlocked and removed over the guide wire. A new 8.5 [place] catheter was advanced over the guide wire. The guidewire was removed and the distal loop of the nephrostomy drainage catheter was formed and locked in the renal pelvis. Contrast was injected, confirming satisfactory drainage catheter position. The left catheter was then addressed. Contrast was injected through the existing 8.5 [place] Nephrostomy catheter. Images demonstrate good catheter placement. The existing catheter was unlocked and removed over the guide wire. A new 8.5 [place] catheter was advanced over the guide wire. The guidewire was removed and the distal loop of the nephrostomy drainage catheter was formed and locked in the renal pelvis. Contrast was injected, confirming satisfactory drainage catheter position. The drainage catheter exit sites were covered with sterile dressing. The nephrostomy drainage catheters was flushed and connected to gravity drainage bags. The patient tolerated the procedure well and there were no immediate complications. This procedure was performed using fluoroscopy. Impression: Successful exchange of nephrostomy urinary diversion tube bilaterally As discussed above. Plan: Routine catheter exchange and approximately 10-12 weeks or earlier if signs of tube dysfunction were to occur. Reviewed by RAFAEL Pan 01/01/2017 06:06 PSigned by Damon Shaffer MD 01/02/2017 01:19 P
== END ==
LOC: M RADPRO 11:22
PROVIDERS: ATTEND Internal Medicine Medical Oncology
DX: C61 Malignant neoplasm of prostate (principal); Z95.1 Presence of aortocoronary bypass graft; Z88.0 Allergy status to penicillin; Z79.82 Long term (current) use of aspirin; Z79.899 Other long term (current) drug therapy; Z79.4 Long term (current) use of insulin
CPT/HCPCS: 50435; C1729; C1769; C1887; Q9967

== ENCOUNTER → 2017-01-15 | Outpatient (CLI) | payer MEDICARE, OTHER ==
[~2017-01-15] MED LIST changes: +LIDOCAINE 2% MDV 20 ML VIAL As Ordered ONE
--- NOTE | 2017-01-15 16:44 | REP ---
The procedure was performed under the direct supervision of Dr. Abebe CLINICAL HISTORY: Prostate cancer PROCEDURE: Right nephrostomy catheter reinsertion Medications: 250 mg Cipro P.O. EBL: Less than 1 ml FLUORO TIME: 2.4 minutesCONTRAST: 3 ml of Isovue 300 The risks and benefits of the procedure were explained to the patient and informed consent was obtained. The patient had a existing indwelling right nephrostomy catheter however cannot become dislodged. The patient has returned today for reinsertion of the right nephrostomy catheter. The patient was brought into the interventional radiology suite. A time out procedure was performed. The patient was placed in the the prone position. The area surrounding the insertion site were prepped and draped in a sterile fashion. A [place] catheter was inserted into the insertion site. A 50/50 solution of sterile saline and Isovue 300 was slowly inject through the catheter and the catheter was advanced along the tract. A 0.035 guidewire was inserted into the catheter and attempt is made to advance the catheter and the kidney however the tract at the kidney had closed off. The catheter and guidewire were then removed. The recommendation is made to the patient that he should be sent for another appointment for insertion of nephrostomy catheter with anesthesia. The patient tolerated the procedure well and there were no immediate complications. This procedure was performed using fluoroscopy. Impression: Attempted reinsertion of right nephrostomy catheter however this was unsuccessful. Plan: Recommend the patient make a follow up appointment for reinsertion of the catheter with anesthesia. Reviewed by RAFAEL Pan 01/15/2017 04:16 PSigned by Juan Abebe MD 01/15/2017 04:35 P
== END ==
LOC: M RADPRO 10:09
PROVIDERS: ATTEND Radiology Diagnostic Radiology
DX: C61 Malignant neoplasm of prostate (principal); Z95.1 Presence of aortocoronary bypass graft; Z96.0 Presence of urogenital implants; Z88.0 Allergy status to penicillin; Z87.891 Personal history of nicotine dependence; Z79.82 Long term (current) use of aspirin; Z79.899 Other long term (current) drug therapy; Z79.4 Long term (current) use of insulin
CPT/HCPCS: 50435; 76000; C1769; C1887; Q9967

== ENCOUNTER → 2017-02-06 | Outpatient (REF) | payer MEDICARE, OTHER ==
[~2017-02-06] MED LIST changes: -CIPROFLOXACIN 500 MG TAB As Ordered ONE; -ISOVUE-300 61% 50ML VIAL (Q9967) As Ordered ONE; -LIDOCAINE 2% MDV 20 ML VIAL As Ordered ONE
== END ==
LOC: M LAB REF 17:46
PROVIDERS: ATTEND Internal Medicine Medical Oncology
DX: C61 Malignant neoplasm of prostate (principal)

== ENCOUNTER → 2017-02-26 | Outpatient (CLI) | payer MEDICARE | LOC: M RAD 11:29 | DX: N28.1 Cyst of kidney, acquired (principal); Z93.6 Other artificial openings of urinary tract status | CPT/HCPCS: 76775 ==

== ENCOUNTER → 2017-03-19 | Outpatient (CLI) | payer MEDICARE, OTHER ==
[~2017-03-19] MED LIST changes: -AMLO10TA2 PO; -ASPI-101 PO; -ATOR1TAB19 PO; -CELE10TA PO; -CELE20TA PO; -CIPR500T3 PO; +CIPROFLOXACIN 500 MG TAB As Ordered; -FAMO1TAB11 PO; -FAMO1TAB25 PO; -FINA5TAB2 PO; -FLOM5CAP PO; +ISOVUE-300 61% 50ML VIAL (Q9967) As Ordered; -K-TA10TA2 PO; -LEVE1INJ5 SC; -LIPI80TA PO; -LISI-542 PO; -LUBRICANT EYE OU; -METO50TA7 PO; -PRIL20CA9 PO; -VITA100066 PO; -ZOFR20TA PO; -glucophage OR; -lantus insulin SC; -metoprolol OR
== END ==
LOC: M RADPRO 09:13
DX: C61 Malignant neoplasm of prostate (principal); N13.30 Unspecified hydronephrosis; Z79.4 Long term (current) use of insulin; Z79.899 Other long term (current) drug therapy; Z88.0 Allergy status to penicillin; Z79.82 Long term (current) use of aspirin
CPT/HCPCS: 50435

== ENCOUNTER → 2017-04-25 | Outpatient (REF) | payer MEDICARE, OTHER ==
[2017-04-25 14:55] LABS: PROSTATIC SPECIFIC AG MONITOR 0.28 NG/ML (< 4.0)
== END ==
LOC: M LAB REF 13:35
DX: C61 Malignant neoplasm of prostate (principal)
CPT/HCPCS: 84153

== ENCOUNTER → 2017-08-10 | Outpatient (REF) | payer MEDICARE ==
[2017-08-10 13:51] LABS: PROSTATIC SPECIFIC AG MONITOR 0.21 NG/ML (< 4.0)
== END ==
LOC: M LAB REF 13:11
DX: C61 Malignant neoplasm of prostate (principal); C77.2 Secondary and unspecified malignant neoplasm of intra-abdominal lymph nodes
CPT/HCPCS: 84153

== ENCOUNTER → 2017-11-05 | Outpatient (REF) | payer MEDICARE, OTHER ==
[2017-11-05 15:42] LABS: PROSTATIC SPECIFIC AG MONITOR 0.18 NG/ML (< 4.0)
== END ==
LOC: M LAB REF 13:38
DX: C61 Malignant neoplasm of prostate (principal); C77.2 Secondary and unspecified malignant neoplasm of intra-abdominal lymph nodes
CPT/HCPCS: 84153

== ENCOUNTER → 2018-08-14 | Outpatient (CLI) | payer MEDICARE ==
[~2018-08-14] MED LIST changes: +AMLO10TA5 PO; +ASPI-225 PO; +ATOR1TAB19 PO; +CELE10TA PO; +CELE20TA PO; +CIPR500T3 PO; -CIPROFLOXACIN 500 MG TAB As Ordered; +CITA20TA6 PO; +FAMO1TAB11 PO; +FAMO1TAB25 PO; +FINA5TAB2 PO; +FLOM0.4C39 PO; +GABA-1171 PO; +GLIP5TAB20 PO; -ISOVUE-300 61% 50ML VIAL (Q9967) As Ordered; +K-TA10TA2 PO; +LEVE1INJ5 SC; +LIPI80TA PO; +LISI-542 PO; +LUBRICANT EYE OU; +METO50TA7 PO; +PRIL20CA9 PO; +TRAD5TAB PO; +TRUL0.5I SC; +VITA100066 PO; +ZOFR4TAB16 PO; +glucophage OR; +lantus insulin SC; +metoprolol OR
--- NOTE | 2018-08-15 13:40 | REP ---
MRI of the left calf without contrast: History: Prostate carcinoma. Possible lesion in the lower left tibia is seen on nuclear medicine scan July 31, 2018. The patient has a remote history of fracture of the right tibia in 1973. Technique: Axial, coronal and sagittal imaging planes were utilized. T1 and T2-weighted scans are included. MRI findings: Cortical and medullary bone signal intensity are normal in the tibia and fibula. There is no evidence to suggest skeletal metastatic disease. There is no observable post-traumatic deformity. No soft tissue mass or cyst is observed. Skeletal muscle signal intensity is normal on T2-weighted scans throughout the calf. No vascular abnormality is seen. Impression: No MRI evidence to suggest musculoskeletal metastasis. Negative MRI study of the left calf. Electronically Signed by Juan Abebe MD 08/15/2018 02:25 P
== END ==
LOC: M RAD 16:43
PROVIDERS: ATTEND Internal Medicine Hematology & Oncology
DX: C61 Malignant neoplasm of prostate (principal)

== ENCOUNTER → 2018-09-11 | Outpatient (REF) | payer MEDICARE | LOC: M LAB REF 12:50 | PROVIDERS: ATTEND Nurse Practitioner Family | DX: N39.0 Urinary tract infection, site not specified (principal) ==

== ENCOUNTER 2018-11-08 15:31 | Emergency (ER) | payer MEDICARE ==
[~2018-11-08] VITALS: Ht 165.1 cm; Wt 72.7 kg
[2018-11-08] MEDS ORDERED: IPRATROPIUM 0.5MG/ALBUTEROL 2.5MG INH SOL UD 3ML (DUONEB)(J7620) NEB ONE (17:30)
[2018-11-08] MEDS ORDERED: ALBUTEROL SULFATE 2.5 MG/0.5 ML INH NEB SOLN INH PRN (17:30)
[2018-11-08] MEDS ORDERED: methylPREDNISolone INJ 125 MG/2 ML VIAL (J2930) IV ONE (17:30)
[2018-11-08 17:58] LABS: BASO # 0.1 10^3/uL (0.0-0.2); BASO % 0.5 % (0.0-1.0); EOS # 0.8 10^3/uL (0.0-0.5); EOS % 7.4 % (0.0-3.0); HEMATOCRIT 42.6 % (42.0-52.0); LYMPH # 2.3 10^3/uL (1.5-5.0); LYMPH % 23.2 % (24.0-44.0); MEAN CORPUSCULAR HEMOGLOBIN 28.7 pg (27.0-33.0); MEAN CORPUSCULAR HGB CONC 32.9 g/dl (32.0-36.5); MEAN CORPUSCULAR VOLUME 87.3 fl (80.0-96.0); MONO # 0.9 10^3/uL (0.0-0.8); MONO % 8.4 % (0.0-5.0); NEUTROPHILS # 6.1 10^3/uL (1.5-8.5); NEUTROPHILS % 60.1 % (36.0-66.0); PLATELET COUNT, AUTOMATED 296 10^3/uL (150-450); RED BLOOD COUNT 4.88 10^6/uL (4.30-6.10); WHITE BLOOD COUNT 10.1 10^3/uL (4.0-10.0)
[2018-11-08 18:34] LABS: ALT/SGPT 49 U/L (12-78); BLOOD UREA NITROGEN 25 MG/DL (7-18); CALCIUM LEVEL 8.8 MG/DL (8.8-10.2); CARBON DIOXIDE LEVEL 25 MEQ/L (21-32); CHLORIDE LEVEL 99 MEQ/L (98-107); CK-MB VALUE MASS < 1.0 NG/ML (<3.6); CPK CREATINE PHOSPHOKINASE 181 U/L (39-308); CREATININE FOR GFR 1.89 MG/DL (0.70-1.30); GLOMERULAR FILTRATION RATE 37.5 (>42); GLUCOSE, FASTING 183 MG/DL (70-100); INFLUENZA A AMPLIFICATION NEGATIVE (NEGATIVE); INFLUENZA B AMPLIFICATION NEGATIVE (NEGATIVE); MB/CK RELATIVE INDEX 0.55 (< OR =4); POTASSIUM SERUM 4.7 MEQ/L (3.5-5.1); SODIUM LEVEL 133 MEQ/L (136-145)
[2018-11-08 18:35] LABS: ALBUMIN 3.4 GM/DL (3.2-5.2); BILIRUBIN,DIRECT 0.3 MG/DL (0.0-0.2); NT-PRO BNP 209 PG/ML (<125); TOTAL PROTEIN 7.1 GM/DL (6.4-8.2); TROPONIN I < 0.02 NG/ML (< 0.10)
[2018-11-08 19:22] VITALS: O2SAT 94
--- NOTE | 2018-11-08 19:41 | REP ---
CHEST, TWO VIEWS: Two views of the chest are performed and compared to prior study of 11/15/2016. I see no acute infiltrate. Heart is not enlarged. Mediastinal silhouette is unchanged. There are multiple sternal wires present. There are mild degenerative changes of the spine. IMPRESSION: No acute infiltrate. Electronically Signed by Damon Shaffer MD 11/08/2018 09:31 P
[2018-11-08 19:52] VITALS: BP 168/79
[2018-11-08] MEDS ORDERED: PRED20TA PO (20:07)
[2018-11-08] MEDS ORDERED: ALBU83IN NEB (20:07)
[2018-11-08] MEDS ORDERED: DOXY100C37 PO (20:07)
[2018-11-08] MEDS ORDERED: VENTAER INH (20:07)
[2018-11-08] MEDS ORDERED: DOXYCYCLINE HYCLATE 100 MG TAB PO ONE (20:15)
[2018-11-08] MEDS ORDERED: ALBUTEROL 90 MCG/ACT 8GM HFA INHALER INH ONE (20:15)
[2018-11-08] MEDS ORDERED: COMPMIS43 XX (20:32)
--- NOTE | 2018-11-09 07:12 | ECGEPIP ---
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
== END 2018-11-08 21:12 | disposition home or self-care (01) ==
LOC: M ED 15:31
DX: J18.9 Pneumonia, unspecified organism (principal); I10 Essential (primary) hypertension; E11.9 Type 2 diabetes mellitus without complications; K21.9 Gastro-esophageal reflux disease without esophagitis; E78.5 Hyperlipidemia, unspecified; Z79.899 Other long term (current) drug therapy; Z79.82 Long term (current) use of aspirin; Z79.4 Long term (current) use of insulin; Z88.0 Allergy status to penicillin; Z88.1 Allergy status to other antibiotic agents
CPT/HCPCS: 71046; 80048; 80076; 82550; 82553; 83605; 83880; 84484; 85025; 87040; 87502; 93005; 94640; 96374; 99284; J2930

== ENCOUNTER → 2019-06-13 | Outpatient (REF) | payer MEDICARE ==
[~2019-06-13] MED LIST changes: +ALBU83IN NEB; -ASPI-225 PO; +ASPI81TA78 PO; +COMPMIS43 XX; +DOXY100C37 PO; +PRED20TA PO; +VENTAER INH
[2019-06-13 18:09] LABS: HEMATOCRIT 41.8 % (42.0-52.0); HEMOGLOBIN 14.1 g/dl (13.5-17.5); MEAN CORPUSCULAR HEMOGLOBIN 29.1 pg (27.0-33.0); MEAN CORPUSCULAR HGB CONC 33.7 g/dl (32.0-36.5); MEAN CORPUSCULAR VOLUME 86.4 fl (80.0-96.0); PLATELET COUNT, AUTOMATED 335 10^3/uL (150-450); RED BLOOD COUNT 4.84 10^6/uL (4.30-6.10); WHITE BLOOD COUNT 13.6 10^3/uL (4.0-10.0)
[2019-06-13 18:14] LABS: ALBUMIN 3.4 GM/DL (3.2-5.2); BILIRUBIN,TOTAL 0.8 MG/DL (0.2-1.0); CALCIUM LEVEL 9.1 MG/DL (8.8-10.2); CHOLESTEROL RISK RATIO 4.655 (<5); CREATININE FOR GFR 1.87 MG/DL (0.70-1.30); GLOMERULAR FILTRATION RATE 37.9 (>42); PROSTATIC SPECIFIC AG MONITOR 0.78 NG/ML (< 4.00); TOTAL PROTEIN 7.5 GM/DL (6.4-8.2)
[2019-06-13 18:23] LABS: HEMOGLOBIN A1c 10.1 %
[2019-06-13 18:41] LABS: MALB URINE SIEMENS 50.5 MG/L; MAU/CREAT RATIO 48.5 MCG/MG (0.0-30.0)
== END ==
LOC: M SFHCPLAZ 11:52
PROVIDERS: ATTEND Physician Assistant
DX: C61 Malignant neoplasm of prostate (principal); E11.21 Type 2 diabetes mellitus with diabetic nephropathy; N18.3 Chronic kidney disease, stage 3 (moderate); E11.65 Type 2 diabetes mellitus with hyperglycemia; E78.00 Pure hypercholesterolemia, unspecified
CPT/HCPCS: 36415; 80053; 80061; 82043; 83036; 84153; 85027; G0463

== ENCOUNTER → 2019-12-25 | Outpatient (REF) | payer MEDICARE ==
[~2019-12-25] MED LIST changes: -AMLO10TA5 PO; +AMLO1TAB25 PO; +MAGN400C2 PO
[2019-12-25 18:04] LABS: HEMOGLOBIN A1c 8.2 %
[2019-12-25 18:10] LABS: CALCIUM LEVEL 8.9 MG/DL (8.8-10.2); CREATININE FOR GFR 2.31 MG/DL (0.70-1.30); GLOMERULAR FILTRATION RATE 29.6 (>42); POTASSIUM SERUM 4.9 MEQ/L (3.5-5.1)
== END ==
LOC: M SFHCPLAZ 14:42
PROVIDERS: ATTEND Physician Assistant
DX: E11.65 Type 2 diabetes mellitus with hyperglycemia (principal)
CPT/HCPCS: 36415; 80048; 83036; G0463

== ENCOUNTER → 2020-03-15 | Outpatient (REF) | payer MEDICARE ==
[~2020-03-15] MED LIST changes: -LISI-542 PO; +LISI-898 PO
== END ==
LOC: M LAB REF 16:57
PROVIDERS: ATTEND Internal Medicine Nephrology
DX: N39.0 Urinary tract infection, site not specified (principal)

== ENCOUNTER → 2020-03-25 | Outpatient (REF) | payer MEDICARE ==
[2020-03-25 18:35] LABS: CREATININE FOR GFR 1.94 MG/DL (0.70-1.30); GLOMERULAR FILTRATION RATE 36.2 (>42); POTASSIUM SERUM 4.9 MEQ/L (3.5-5.1)
[2020-03-25 19:30] LABS: HEMOGLOBIN A1c 8.5 %
== END ==
LOC: M SFHCPLAZ 14:48
PROVIDERS: ATTEND Physician Assistant
DX: E11.65 Type 2 diabetes mellitus with hyperglycemia (principal)
CPT/HCPCS: 36415; 80048; 83036; G0463

== ENCOUNTER → 2020-06-15 | Outpatient (REF) | payer MEDICARE ==
[~2020-06-15] MED LIST changes: +AMLO1TAB24 PO; +D31000TA2 PO; +FAMO40TA3 PO; +FURO40TA2 PO; +GLIP10TA6 PO; +METO1TAB7 PO; +ONDA4TAB6 PO; +TORS10TA3 PO
[2020-06-15 18:45] LABS: PERCENT SATURATION 20.1 % (19.7-50.0)
== END ==
LOC: M LAB REF 17:01
PROVIDERS: ATTEND Internal Medicine Nephrology
DX: D64.9 Anemia, unspecified (principal)
CPT/HCPCS: 82607; 82728; 82746; 83550; G0463

== ENCOUNTER 2020-06-27 12:34 | Inpatient (IN) | payer MEDICARE ==
[~2020-06-27] VITALS: Ht 165.1 cm; Wt 76.2 kg
[~2020-06-27 12:34] MED LIST changes: -AMLO1TAB24 PO; -D31000TA2 PO; -FAMO40TA3 PO; -FURO40TA2 PO; -GLIP10TA6 PO; -METO1TAB7 PO; -ONDA4TAB6 PO; -TORS10TA3 PO
[2020-06-27] MEDS ORDERED: METO1TAB7 PO (13:21)
[2020-06-27] MEDS ORDERED: TORS10TA3 PO (13:21)
[2020-06-27] MEDS ORDERED: GLIP10TA6 PO (13:21)
[2020-06-27 14:09] LABS: BASO # 0.1 10^3/uL (0.0-0.2); BASO % 0.6 % (0.0-1.0); EOS # 0.8 10^3/uL (0.0-0.5); EOS % 7.3 % (0.0-3.0); HEMATOCRIT 36.4 % (42.0-52.0); HEMOGLOBIN 11.9 g/dl (13.5-17.5); LYMPH # 2.3 10^3/uL (1.5-5.0); LYMPH % 21.6 % (24.0-44.0); MEAN CORPUSCULAR HEMOGLOBIN 29.4 pg (27.0-33.0); MEAN CORPUSCULAR HGB CONC 32.7 g/dl (32.0-36.5); MEAN CORPUSCULAR VOLUME 89.9 fl (80.0-96.0); MONO % 9.1 % (2.0-8.0); NEUTROPHILS # 6.5 10^3/uL (1.5-8.5); NEUTROPHILS % 60.8 % (36.0-66.0); PLATELET COUNT, AUTOMATED 237 10^3/uL (150-450); RED BLOOD COUNT 4.05 10^6/uL (4.30-6.10); WHITE BLOOD COUNT 10.6 10^3/uL (4.0-10.0)
--- NOTE | 2020-06-27 14:09 | REP ---
INDICATION: CHEST PAIN. COMPARISON: 11/08/2018 TECHNIQUE: PA and lateral views FINDINGS: The superior mediastinal structures are midline. Note is again made of previous median sternotomy the cardiac silhouette is unremarkable in size, shape, and position. The diaphragmatic surfaces of the lungs are regular, and the costophrenic angles are clear. The pulmonary diaz are clear. The imaged osseous structures are intact. IMPRESSION: There is no acute cardiopulmonary disease. No significant change from the prior exam <Electronically signed by Blu Neff > 06/27/20 [id number]
--- NOTE | 2020-06-27 14:10 | REP ---
INDICATION: knee pain/swelling COMPARISON: None TECHNIQUE: Four views without sunrise view FINDINGS: The compartments are symmetric and relatively well maintained. There is no acute fracture or destructive osseous lesion. IMPRESSION: As above <Electronically signed by Blu Neff > 06/27/20 [id number]
--- NOTE | 2020-06-27 14:11 | REP ---
INDICATION: swelling. COMPARISON: None. TECHNIQUE: Multiple ultrasonographic images of the deep venous structures of the left thigh were obtained from the common femoral vein to the popliteal vein along with Doppler interrogation and color flow Doppler images. FINDINGS: There is no abnormal echogenic material seen within any of the visualized deep venous structures that would suggest acute thrombosis. Coaptation is unremarkable throughout. Doppler interrogation shows an expected response to respiratory variability and augmentation. The color flow images show what appears to be a normal vascular pattern throughout. IMPRESSION: There is no ultrasonographic evidence of deep venous thrombosis involving any of the visualized deep venous structures of the left thigh, as described above. <Electronically signed by Blu Neff > 06/27/20 [id number]
[2020-06-27 14:20] LABS: INR 1.08; PROTHROMBIN TIME 14.2 SECONDS (12.5-14.3)
[2020-06-27 14:21] LABS: PARTIAL THROMBOPLASTIN TIME 28.5 SECONDS (24.2-38.5)
[2020-06-27 14:23] LABS: D-DIMER QUANT 1096.47 ng/ml (<500)
[2020-06-27 14:26] LABS: ERYTHROCYTE SEDIMENTATION RATE 32 mm/hr (0-20)
[2020-06-27 14:35] LABS: ALBUMIN 3.1 GM/DL (3.2-5.2); ALT/SGPT 24 U/L (12-78); BILIRUBIN,DIRECT 0.1 MG/DL (0.0-0.2); BILIRUBIN,TOTAL 0.7 MG/DL (0.2-1.0); C REACTIVE PROTEIN QUANTITATIV 0.64 MG/DL (0.00-0.30); CK-MB VALUE MASS < 1.0 NG/ML (<3.6); CPK CREATINE PHOSPHOKINASE 65 U/L (39-308); MB/CK RELATIVE INDEX 1.54 (< OR =4); NT-PRO BNP 1363 PG/ML (<125); TOTAL PROTEIN 6.7 GM/DL (6.4-8.2); TROPONIN I < 0.02 NG/ML (< 0.10)
[2020-06-27] MEDS ORDERED: GLUCOSE 4GM CHEW TABLET PO PRN (15:10)
[2020-06-27] MEDS ORDERED: DEXTROSE 50% 50 ML SYRINGE IV PRN (15:10)
[2020-06-27] MEDS ORDERED: GLUCAGON INJ 1MG VIAL SC PRN (15:10)
[2020-06-27] MEDS ORDERED: LIDOCAINE 2% 5ML JELLY UROJET TOP ONE (15:15)
--- NOTE | 2020-06-27 15:15 | HPEPDOC ---
[facility] Medical History & Physical Date of Admission June 27, 2020 Date of Service: June 27, 2020 Attending Physician: Shea Kevin MD History and Physical CHIEF COMPLAINT: LLE swelling HISTORY OF PRESENT ILLNESS: Patient is a 74-year-old male with past mental history of CAD status post CABG, history of ureteral obstruction with stent placement and nephrostomy tube placements in the past, prostate cancer, BPH, hyperlipidemia, COPD, GERD diabetes mellitus who presented to [facility] emergency room with the chief complaint of increased left lower extremity swelling over the past 2448 hours. The patient states he has had chronic left lower extremity swelling going on since April of this year; however, he has noticed significant increase in the left lower extremity swelling over the past 2448 hours. He was recently seen in nephrology office on 06/15/2020 for increased weight gain, generalized swelling. The patient was started on torsemide low dose and discharged to follow up. Since then the patient states he has had increased shortness of breath, difficulty bending his left knee, increased left lower extremity swelling, headache, dizziness, weakness, occasional wheezing. The patient came to the emergency room to be further evaluated. In the ER, vital signs were stable. He was saturating well on room air. CBC 10.6, H&H 11.9/36.4, ESR 32, CRP 0.64, BNP 1363, BU and 44, creatinine 3.7. Baseline creatinine is 1.81.9. D-dimer elevated at 1096, troponin negative, blood cultures were drawn. Urine was unable to be produced by the patient. I requested a Garcia to be placed and 1.6 L came out upon placement. UA was neg. Renal ultrasound was ordered but was incomplete prior to admission. Chest x-ray was negative for acute findings along with x-ray of the left knee and left lower extremity Doppler. He was mildly wheezy when laying flat but improved significantly when sitting up. The patient had +3 pitting edema in the left lower extremity and +1 pitting edema in the right lower extremity. There is also some mild pinkish tinting of his left lower extremity, perhaps early cellulitis. He had excoriation solomon all up and down his left leg. Aside from the complaints above, the patient denied chest pain, coughing, fevers, chills, palpitations, nausea, vomiting, diarrhea, sick contacts, recent travel. The patient was admitted for further workup of acute kidney injury, rule out obstructive uropathy versus prerenal causes. REVIEW OF SYSTEMS: Neg except for what is mentioned above PMHx: CAD/CABG/DC x 2 Ureteral obstruction/Rt ureteral stent 10/04 Urinary retention requiring nephrostomy tubes b/l prostatitis BPH Prostate CA HLD hypokalemia COPD PAF IDDM depression GERD PSHX: CABG RLE fx repair cholecystectomy Cystoscopy, electrovaporization prostate, retrograde pyelogram, Ureteral stent Rt 10/04. Raffaele. B/l Nephrostomy tube placement 2017 SOCHX: Resides in: [facility] Marital Status: Kids: none Employment: retired, [place] [employer] Tobacco use: quit 30 years ago ETOH: denies Illicit Drugs: Denies Advanced directives: MOLST not available, states DNR Urologist- Dr. Castorena, [employer] Front Desk Clerk- Dr. Veliz FAMHX: Mother: breast Ca Father stomach Ca Siblings: Alive, DM, CVA ALLERGIES: Please see below. HOME MEDICATIONS: Please see below. PHYSICAL EXAMINATION: VS: Stable CONSTITUTIONAL: No acute distress, resting comfortably, AAO x 3 EYES: PERRLA, EOM intact HENT, MOUTH: Normocephalic, atraumatic, moist mucous membranes NECK: SUPPLE, no JVD, no lymphadenopathy, no carotid bruit CV: Regular rate and rhythm, S1S2 normal, no murmurs/rubs/gallops RESPIRATORY: Mild intermittnet wheezing but otherwise clear to auscultation bilaterally, no rales/rhonchi/crackles GI: obese protuberant abd, BS positive in 4 quadrants, soft, nontender, no rebound or guarding, no organomegaly : Deferred MUSCULOSKELETAL: Normal ROM. No cyanosis, clubbing, swelling, joint deformity, +3 pitting edema in the left lower extremity to upper thigh, +1 pitting edema in the right lower extremity. INTEGUMENTARY: There is also some mild pinkish tinting of his left lower extremity, perhaps early cellulitis with being slightly warm to touch. excoriat ion markings up and down left leg. Small open ulcer along well healing right anterior cortes scar, nonsuppurative. NEUROLOGIC: Cranial Nerves II-XII are intact, no focal deficits PSYCHIATRIC: Mood and affect are normal LABORATORY DATA: Please see below MICRO: UA pending BCx x 2 sets pending IMAGING: Left knee XR: The compartments are symmetric and relatively well maintained. There is no acute fracture or destructive osseous lesion. CXR: There is no acute cardiopulmonary disease. No significant change from the prior exam US LLE: There is no ultrasonographic evidence of deep venous thrombosis involving any of the visualized deep venous structures of the left thigh, as described above. ASSESSMENT: 74-year-old male with past mental history of CAD status post CABG, history of ureteral obstruction with stent placement and nephrostomy tube placements in the past, prostate cancer, BPH, hyperlipidemia, COPD, GERD diabetes mellitus admitted for further workup of acute kidney injury, rule out obstructive uropathy versus prerenal causes PLAN: Acute kidney injury on CKD Stage 3, rule out obstructive uropathy (Hx f BPH, prostate CA, ureteral obstruction) vs. prerenal causes (diuretic use) -Recently started on torsemide as o/p -Patient states he has been urinating well at home; however, when garcia placed 1.6 L urine came out (light yello) -UA neg -F/w garcia catheter, consult nephrology -F/u renal US to see if hydronephrosis or other uropathy that would warrant urology consult (has followed with Dr. Castorena in the past for hydronephrosis requiring nephrostomy tubes, stenting) -C/w flomax and finasteride LLE swelling, acute on chronic . R/o development of early cellulitis -> 2-3 months of LLE swelling in leg that veins were taken from for CABG -Significant increased swelling over 24-48 hours -WBC mildly elevated, mildly warm to touch. Currently afebrile -Will see how it looks in the AM, if still mildly red and not improved, will start abx -C/w treatment above, f/u nephrology recommendations for fluid removal. Elevated BNP, r/o CHF with exacerbation -No documented CHF but hx of CAD s/p CABG -no prior echo on file, does not follow with cardiology in community -Trops neg, ECG similar to old with nonspecific changes -F/u echo ordered -C/w BB, CCB, holding diuretics 2/2 to EZRA -Low salt diet, weigh daily, close monitoring of I&O Shortness of breath could be multifactorial: COPD, ? CHF -Not believed to be in exacerbation for COPD but cannot r/o CHF exacerbation -Mild wheezing is intermittent and not consistent -Albuterol PRN -Tx for CHF above CAD/CABG/DC -Denies chest pain, trops neg -no ECG changes -C/w home ASA, CCB, BB, statin HLD -Statin IDDM -BS 192 -Holding PO glipizide, c/w levemir -ISS and FS AC/HS, CC diet, hypoglycemic protocol Depression -Denies HI/SI -C/w home med GERD -Famotidine DVT px -Heparin SC DISPOSITION: Admitted as acute inpatient. Will await results of renal US to decide if urology needed on consult, nephrology consulted. Plan is discharge home when medically improved. Vital Signs Vital Signs Date Time Temp Pulse Resp B/P (MAP) Pulse Ox O2 Delivery O2 Flow Rate FiO2 06/27/20 14:34 59 06/27/20 14:31 151/67 (95) 06/27/20 14:04 16 97 Room Air 06/27/20 12:34 97.1 Laboratory Data Labs 24H Laboratory Tests 2 06/27/20 13:51: Immature Granulocyte % (Auto) 0.6, Neutrophils (%) (Auto) 60.8, Lymphocytes (%) (Auto) 21.6L, Monocytes (%) (Auto) 9.1H, Eosinophils (%) (Auto) 7.3H, Basophils (%) (Auto) 0.6, Neutrophils # (Auto) 6.5, Lymphocytes # (Auto) 2.3, Monocytes # (Auto) 1.0H, Eosinophils # (Auto) 0.8H, Basophils # (Auto) 0.1, Nucleated Red Blood Cells % (auto) 0.0, Erythrocyte Sedimentation Rate 32H, Prothrombin Time 14.2H, Prothromb Time International Ratio 1.08, Activated Partial Thromboplast Time 28.5, D-Dimer, Quantitative 1096.47H, POC Glucose (Misc Panel) 192H, POC Sodium (Misc Panel) 138, POC Potassium (Misc Panel) 4.6, POC Chloride (Misc Panel) 106, POC Total CO2 (Misc Panel) 23.0, POC Blood Urea Nitrogen (Misc Panel 44H, POC Ionized Calcium (Misc Panel) 5.0, POC Creatinine (Misc Panel) 3.7H, POC Hematocrit (Misc Panel) 34.0L, Lactic Acid Level 1.2, Total Bilirubin 0.7, Direct Bilirubin 0.1, Aspartate Amino Transf (AST/SGOT) 30, Alanine Aminotransferase (ALT/SGPT) 24, Alkaline Phosphatase 98, Total Creatine Kinase 65, Creatine Kinase MB < 1.0, Creatine Kinase MB Relative Index 1.54, Troponin I < 0.02, C-Reactive Protein, Quantitative 0.64H, SE-Efy-U-Type Natriuretic Peptide 1363H, Total Protein 6.7, Albumin 3.1L, Albumin/Globulin Ratio 0.9 06/27/20 13:53: POC Troponin I ([facility] [place]) 0.00 CBC/BMP Laboratory Tests 06/27/20 13:51 Microbiology Microbiology 06/27/20 Blood Culture, Received Pending 06/27/20 Blood Culture, Received Pending Home Medications Scheduled Amlodipine Besylate (Amlodipine Besylate) 10 Mg Tab, 10 MG PO DAILY Aspirin (Aspirin EC) 81 Mg Tab, 81 MG PO DAILY Atorvastatin Calcium (Atorvastatin Calcium) 10 Mg Tab, 10 MG PO QHS Cholecalciferol (Vitamin D3) (Vitamin D3) 1,000 Unit Tab, 1,000 UNIT PO QHS Citalopram Hydrobromide (Citalopram HBr) 20 Mg Tab, 20 MG PO DAILY Famotidine (Famotidine) 20 Mg Tab, 20 MG PO QHS Finasteride (Finasteride) 5 Mg Tab, 5 MG PO DAILY Gabapentin (Gabapentin) 100 Mg Cap, 100 MG PO TID Insulin Detemir (Levemir Flextouch) 100 Unit/Ml Inj, 40 UNIT SC QAM Insulin Detemir (Levemir Flextouch) 100 Unit/1 Ml Insuln.pen, 50 UNIT SC BID Linagliptin (Tradjenta) 5 Mg Tab, 5 MG PO DAILY Magnesium Oxide (Magnesium) 400 Mg Capsule, 400 MG PO DAILY for constipation Ondansetron HCl (Zofran) 4 Mg Tab, 4 MG PO BID Tamsulosin HCl (Flomax) 0.4 Mg Cap, 0.8 MG PO DAILY Scheduled PRN Albuterol Sulf (Albuterol Sulfate) 2.5 Mg/3 Ml Vial.neb, 1 VIAL NEB Q4HP PRN for wheezing Albuterol Sulfate (Ventolin Hfa) 18 Gm Hfa.aer.ad, 2 PUFF INH Q4-6HP PRN for wheezing Miscellaneous Medications Glipizide (Glipizide) 10 Mg Tablet Metoprolol Succinate (Metoprolol Succinate) 50 Mg Tab.er.24h Torsemide (Torsemide) 10 Mg Tablet Allergies Coded Allergies: Penicillins (Verified Allergy, Unknown, 05/23/18) vancomycin (Verified Allergy, Unknown, 11/08/18) A-FIB/CHADSVASC A-FIB History Current/History of A-Fib/PAF?: No Current PO Anticoag Therapy: No Age/Risk Factor Scoring CHADSVASC: CHADSVASC Response (Comments) Value Age Risk Factor Age 65-74 years old 1 Gender Risk Factor Male 0 Hx of CHF No 0 Hx of HTN Yes 1 Hx of Stroke/TIA/or VTE No 0 Hx of Diabetes Yes 1 Hx of Vascular Disease No 0 Total 3 Treatment Treatment ordered: Other Other anticoagulant ordered: heparin Shea Kevin MD June 27, 2020 15:14
[2020-06-27 16:13] LABS: RSV AMPLIFICATION NEGATIVE (NEGATIVE)
[2020-06-27 16:24] VITALS: BP 142/59
--- NOTE | 2020-06-27 16:34 | REP ---
INDICATION: worsening renal function. COMPARISON: Four hundred nineteen FINDINGS: Multiple ultrasonographic images of the right kidney show the right kidney to measure 9.7 x 4.3 x 4.6 cm.. The renal cortical echotexture is increased. There are no masses. There is poor corticomedullary differentiation. There is moderate to severe hydronephrosis. There are no perinephric fluid collections. Multiple ultrasonographic images of the left kidney show the left kidney to measure 11.6 x 3.6 x 4.3 cm. The renal cortical echotexture is increased. There are no masses. There is poor corticomedullary differentiation. There is no hydronephrosis. There is mild dilatation of the calices. There are no perinephric fluid collections. IMPRESSION: 1. Right-sided hydronephrosis. 2. Mild dilatation of the calices on the left. 3. Evidence of medical renal disease. <Electronically signed by Blu Neff > 06/27/20 [id number]
[2020-06-27] MEDS: HumaLOG INSULIN (NovoLOG) PER UNIT SC SCH ×2 (16:50→21:00)
[2020-06-27] MEDS ORDERED: ONDA4TAB6 PO (16:55)
[2020-06-27] MEDS ORDERED: FAMO40TA3 PO (16:55)
[2020-06-27] MEDS ORDERED: ALBU83IN NEB (16:55)
[2020-06-27] MEDS ORDERED: D31000TA2 PO (16:55)
[2020-06-27] MEDS ORDERED: VENTAER INH (16:55)
[2020-06-27] MEDS ORDERED: ONDANSETRON 4 MG ORAL DISINTEGRATING TAB PO PRN (17:20)
[2020-06-27] MEDS ORDERED: ALBUTEROL SULFATE 2.5 MG/0.5 ML INH NEB SOLN NEB PRN (17:25)
--- NOTE | 2020-06-27 18:41 | SMCUROLCON ---
Urology Consultation General Date of Consultation 06/27/20 Reason For Consultation The patient is a 74 year old male admitted today for evaluation of swelling in his left lower extremity of two days duration. He was found to be in urinary retention when he could not void and a garcia catheter was placed and returned 1600 cc of clear urine. He is followed by nephrology for chronic kidney disease and his current BUN is 44 and creatinine is 3.7 which is above his baseline function. He denies problems voiding. He has noted no gross hematuria nor dysuria. He has a history of prostate cancer according to the chart but he denies that he has ever been treated for prostate cancer. He denies any history of urologic surgery but the chart notes that he has had surgery. In addition he has had nephrostomy tubes placed and ureteral stents placed but he denies knowledge of these procedures. His doppler ultrasound of the lower extremities showed no evidence of DVT. His renal ultrasound shows right hydronephrosis and none on the left. This may be due to urinary retention and will need to repeat the ultrasound in 48 hours to see if this resolves. The records from the urology office will need to be reviewed to determine the patients exact past urologic history. Presently he denies any concerns and is comfortable with the catheter in his bladder. His past medical history is remarkable for CAD post CABG, diabetes mellitus, GERD, COPD, hyperlipidemia, chronic kidney disease. His WBC is 10,600. His Hgb/Hct is 11.9/36.4 Urinalysis shows ph of 5.0, specific gravity of 1.009, negative esterase, negative nitrite, one plus hgb, 5 wbc, 8 rbc History of Present Illness Medications Current Medications Current Medications Medications (Trade) Dose Ordered Sig/Peña Route PRN Reason Start Time Stop Time Status Last Admin Dose Admin Albuterol Sulfate (Proventil Neb) 2.5 mg Q2HP PRN NEB SOB/WHEEZING 06/27/20 17:25 Amlodipine Besylate (Norvasc) 10 mg DAILY PO 06/28/20 09:00 Aspirin (Ecotrin) 81 mg DAILY PO 06/28/20 09:00 Atorvastatin Calcium (Lipitor) 10 mg QHS PO 06/27/20 21:00 Citalopram Hydrobromide (CeleXA) 20 mg DAILY PO 06/28/20 09:00 Dextrose (Dextrose 50%) 25 ml ASDIRECTED PRN IV SEE LABEL COMMENTS 06/27/20 15:10 Famotidine (Pepcid) 40 mg QHS PO 06/27/20 21:00 Finasteride (Proscar) 5 mg QHS PO 06/27/20 21:00 Gabapentin (Neurontin) 100 mg BID PO 06/27/20 21:00 Glucagon (Glucagon) 1 mg ASDIRECTED PRN SC SEE LABEL COMMENTS 06/27/20 15:10 Glucose (Glucose) 16 GM ASDIRECTED PRN PO SEE LABEL COMMENTS 06/27/20 15:10 Heparin Sodium (Porcine) (Heparin) 5,000 units Q12H SC 06/27/20 21:00 Home Med (Med Rec Complete!) ASDIRECTED XX 06/27/20 16:55 06/27/20 16:58 DC Insulin Detemir (Levemir Insulin) 50 units BID SC 06/27/20 21:00 Insulin Human Lispro (HumaLOG INSULIN) SEE PROTOCOL TABLE AC SC 06/27/20 17:30 Insulin Human Lispro (HumaLOG INSULIN) SEE PROTOCOL TABLE QHS SC 06/27/20 21:00 Metoprolol Succinate (TopROL XL) 50 mg QHS PO 06/27/20 21:00 Ondansetron HCl (Zofran Odt) 4 mg Q6H PRN PO NAUSEA OR VOMITING 06/27/20 17:20 Tamsulosin HCl (Flomax) 0.8 mg DAILY PO 06/28/20 09:00 Allergies Allergies: Coded Allergies: Penicillins (Verified Allergy, Unknown, 05/23/18) vancomycin (Verified Allergy, Unknown, 11/08/18) Physical Examination General Exam: Cooperative, No Acute Distress EYE EXAM: PERRLA, Conjunctiva & lids normal, EOMI ENT EXAM: Atraumatic Neck Exam: Supple; No: JVD, thyromegaly, Lymphadenopathy Chest Exam: Clear to auscultation Heart Exam: Rate Normal Abdomen Exam: Normal Bowel Sounds, Soft; No: Tenderness, Hepatospenomegaly Male Exam: No: Tenderness (small testes bilaterally, penis without lesions, garcia catheter draining clear urine) Extremity Exam: Edema (one plus pitting edema LLE, none on the right) Skin Exam: No: Lesion Neuro Exam: Normal Speech, Other (uncertain of his insight and ability to give history) Vital Signs/I&O Vital Signs Date Time Temp Pulse Resp B/P (MAP) Pulse Ox O2 Delivery O2 Flow Rate FiO2 06/27/20 14:34 59 06/27/20 14:31 151/67 (95) 06/27/20 14:04 16 97 Room Air 06/27/20 12:34 97.1 Laboratory Data 24H Labs Laboratory Tests 2 06/27/20 13:51: Immature Granulocyte % (Auto) 0.6, Neutrophils (%) (Auto) 60.8, Lymphocytes (%) (Auto) 21.6L, Monocytes (%) (Auto) 9.1H, Eosinophils (%) (Auto) 7.3H, Basophils (%) (Auto) 0.6, Neutrophils # (Auto) 6.5, Lymphocytes # (Auto) 2.3, Monocytes # (Auto) 1.0H, Eosinophils # (Auto) 0.8H, Basophils # (Auto) 0.1, Nucleated Red Blood Cells % (auto) 0.0, Erythrocyte Sedimentation Rate 32H, Prothrombin Time 14.2H, Prothromb Time International Ratio 1.08, Activated Partial Thromboplast T hernán 28.5, D-Dimer, Quantitative 1096.47H, POC Glucose (Misc Panel) 192H, POC Sodium (Misc Panel) 138, POC Potassium (Misc Panel) 4.6, POC Chloride (Misc Panel) 106, POC Total CO2 (Misc Panel) 23.0, POC Blood Urea Nitrogen (Misc Panel 44H, POC Ionized Calcium (Misc Panel) 5.0, POC Creatinine (Misc Panel) 3.7H, POC Hematocrit (Misc Panel) 34.0L, Lactic Acid Level 1.2, Total Bilirubin 0.7, Direct Bilirubin 0.1, Aspartate Amino Transf (AST/SGOT) 30, Alanine Aminotransferase (ALT/SGPT) 24, Alkaline Phosphatase 98, Total Creatine Kinase 65, Creatine Kinase MB < 1.0, Creatine Kinase MB Relative Index 1.54, Troponin I < 0.02, C-Reactive Protein, Quantitative 0.64H, IJ-Knl-E-Type Natriuretic Peptide 1363H, Total Protein 6.7, Albumin 3.1L, Albumin/Globulin Ratio 0.9 06/27/20 13:53: POC Troponin I (Misc) 0.00 06/27/20 15:09: Coronavirus (COVID-19)(PCR) NEGATIVE, Influenza Type A (RT-PCR) NEGATIVE, Influenza Type B (RT-PCR) NEGATIVE, Respiratory Syncytial Virus (PCR) NEGATIVE 06/27/20 15:49: Urine Color YELLOW, Urine Appearance CLEAR, Urine pH 5.0, Urine Specific [place] 1.009, Urine Protein NEGATIVE, Urine Glucose (UA) 1+H, Urine Ketones NEGATIVE, Urine Blood 1+H, Urine Nitrite NEGATIVE, Urine Bilirubin NEGATIVE, Urine Urobilinogen 0.2, Urine Leukocyte Esterase NEGATIVE, Urine WBC (Auto) 5H, Urine RBC (Auto) 8H, Urine Hyaline Casts (Auto) 0, Urine Bacteria (Auto) NEGATIVE, Urine Squamous Epithelial Cells 0, Urine Sperm (Auto) 06/27/20 16:30: Bedside Glucose (Misc Panel) 129H CBC/BMP Laboratory Tests 06/27/20 13:51 Microbiology Microbiology 06/27/20 Blood Culture, Received Pending 06/27/20 Blood Culture, Received Pending Assessment 1. urinary retention, garcia catheter in place, on tamsulosin and finasteride 2. right hydronephrosis, possibly secondary to urinary retention.,.Unclear prior history of nephrostomy and ureteral stent placement? 3. swelling LLE concern for possible pelvic mass or adenopathy causing venous or lymphatic obstruction, will evaluate with non contrast CT imaging 4. possible history of prostate cancer, patient is not certain 5. chronic kidney disease with recent worsening of function, possibly secondary to urinary retention, garcia in place 6. coronary artery disease post CABG 7. diabetes mellitus 8. copd 9. gerd 10 inability to obtain full historical details from patient Plan 1. leave garcia catheter in place, follow renal function 2. check CT scan abd and pelvis to look for possible cause of LLE edema 3. repeat renal ultrasound in 48 hours to see if right hydronephrosis resolves, if not consider cysto, retrograde pyelogram and possible placement of right inte rnal ureteral catheter or right nephrostomy 4. check records from office regarding possible diagnosis of and prior management of prostate cancer 5. check PSA Time Spent on Consult: Time Spent / Consult (Minutes): 30 CAPRICE PARKS MD June 27, 2020 18:41
[2020-06-27] MEDS: ATORVASTATIN 10 MG TAB PO SCH (20:19)
[2020-06-27] MEDS: FINASTERIDE 5 MG TAB PO SCH (20:19)
[2020-06-27] MEDS: FAMOTIDINE 20 MG TAB PO SCH (20:19)
[2020-06-27] MEDS: HEPARIN SOD (PORCINE) 5000UNITS/ML 1ML VIAL/SYRINGE SC SCH (20:19)
[2020-06-27] MEDS: METOPROLOL SUCC (TopROL XL) 50MG **XL** TAB PO SCH (20:20)
[2020-06-27] MEDS: GABAPENTIN 100 MG CAP PO SCH (21:00)
[2020-06-27] MEDS: LEVEMIR (INSULIN DETEMIR) 1 UNITS/0.01ML SC SCH (21:00)
[2020-06-27 22:00] VITALS: BP 146/60
[2020-06-28 06:00] VITALS: BP 142/58
[2020-06-28 06:03] LABS: HEMATOCRIT 35.7 % (42.0-52.0); HEMOGLOBIN 11.6 g/dl (13.5-17.5); MEAN CORPUSCULAR HEMOGLOBIN 28.8 pg (27.0-33.0); MEAN CORPUSCULAR HGB CONC 32.5 g/dl (32.0-36.5); MEAN CORPUSCULAR VOLUME 88.6 fl (80.0-96.0); PLATELET COUNT, AUTOMATED 226 10^3/uL (150-450); RED BLOOD COUNT 4.03 10^6/uL (4.30-6.10); WHITE BLOOD COUNT 10.2 10^3/uL (4.0-10.0)
[2020-06-28 06:31] LABS: BILIRUBIN,TOTAL 0.8 MG/DL (0.2-1.0); CALCIUM LEVEL 9.1 MG/DL (8.8-10.2); CREATININE FOR GFR 2.94 MG/DL (0.70-1.30); GLOMERULAR FILTRATION RATE 22.4 (>42); POTASSIUM SERUM 4.4 MEQ/L (3.5-5.1); TOTAL PROTEIN 6.5 GM/DL (6.4-8.2)
[2020-06-28] MEDS: HumaLOG INSULIN (NovoLOG) PER UNIT SC SCH ×4 (07:30→21:52)
--- NOTE | 2020-06-28 07:44 | REPVR ---
PROCEDURE INFORMATION: Exam: CT Abdomen And Pelvis Without Contrast Exam date and time: 06/27/2020 5:45 PM Age: 74 years old Clinical indication: Mass, lump, or swelling; Other: Lle; Additional info: R/O compressiobstructive intrabdominal cause of lle swelling TECHNIQUE: Imaging protocol: Computed tomography of the abdomen and pelvis without contrast. Radiation optimization: All CT scans at this facility use at least one of these dose optimization techniques: automated exposure control; mA and/or kV adjustment per patient size (includes targeted exams where dose is matched to clinical indication); or iterative reconstruction. COMPARISON: CT ABD PELVIS W/O CONTRAST 07/31/2018 11:29 AM FINDINGS: Pleural spaces: There is small bilateral partially imaged pleural effusions with overlying atelectases. Liver: Normal. No mass. Gallbladder and bile ducts: The patient is status post cholecystectomy. There is no biliary ductal dilatation. Pancreas: Normal. No ductal dilation. Spleen: Normal. No splenomegaly. Adrenal glands: Normal. No mass. Kidneys and ureters: There is moderate left and severe right-sided hydronephrosis and hydroureter. There is thinning of the right renal cortex. There is bilateral perinephric stranding and edema more prominent on the right. Stomach and bowel: There is 4.2 x 2.3 cm duodenal diverticulum. Appendix: No evidence of appendicitis. Intraperitoneal space: Unremarkable. No free air. No significant fluid collection. Vasculature: There is severe aortic and iliac mural calcifications. Lymph nodes: There are some prominent retroperitoneal lymph nodes the largest is in the aortocaval window measuring 2.5 x 1.4 cm best seen on coronal image 53. Shotty prominent bilateral inguinal lymph nodes are seen. Urinary bladder: Vasquez catheter balloon seen within collapsed urinary bladder. There is suggestion of urinary bladder wall thickening. Reproductive: Unremarkable as visualized. Bones/joints: There is multilevel lumbar spine facet arthrosis. Soft tissues: There is 4.2 x 3.6 cm umbilical fat containing hernia. There is mild diffuse subcutaneous edema more pronounced at the flanks and hips. There is small bilateral fat containing inguinal hernias. Other findings: There is presacral stranding and edema. IMPRESSION: 1. Vasquez catheter balloon within collapsed urinary bladder which demonstrate wall thickening and surrounding edema. Underlying cystitis among other pathologies cannot be excluded on this exam. 2. Moderate left and severe right-sided hydronephrosis and hydro ureters through the UVJ. This could be secondary to an obstructive process at the trigone or could be due to obstruction from the Vasquez catheter balloon. 3. Bilateral nonspecific perinephric stranding more prominent on the right. Underlying pyelonephritis cannot be excluded. 4. Nonspecific bilateral inguinal and retroperitoneal lymph nodes measuring up to 2.5 x 1.4 cm. These could be reactive however underlying neoplastic etiology cannot be excluded. These lymph nodes are not of bulky size to explain compressive obstructive etiology for lower extremity swelling. 5. Nonspecific subcutaneous stranding and edema more prominent in the flanks and hips could be secondary to 3rd spacing. 6. Small bilateral inguinal and umbilical fat containing hernias. 7. Small bilateral pleural effusions with overlying atelectasis. This in combination with the subcutaneous edema suggested third-spacing which could explain lower extremity edema. Other etiologies cannot be excluded. 8. Presacral edema could be secondary to the overall pelvic edema and edema around the urinary bladder however underlying element of proctitis cannot be excluded. Correlate clinically. Electronically signed by: Sekou Ram On 06/28/2020 07:44:31 AM
[2020-06-28] MEDS: HEPARIN SOD (PORCINE) 5000UNITS/ML 1ML VIAL/SYRINGE SC SCH ×2 (08:33→21:52)
[2020-06-28] MEDS: CitaloPRAM (CeleXA) 20 MG TAB PO SCH (08:33)
[2020-06-28] MEDS: TAMSULOSIN 0.4 MG CAP PO SCH (08:33)
[2020-06-28] MEDS: ASPIRIN 81MG ENTERIC TABLET PO SCH (08:34)
[2020-06-28] MEDS: GABAPENTIN 100 MG CAP PO SCH ×2 (08:34→21:53)
[2020-06-28] MEDS: LEVEMIR (INSULIN DETEMIR) 1 UNITS/0.01ML SC SCH ×2 (09:00→21:52)
--- NOTE | 2020-06-28 11:55 | REP ---
INDICATION: r/o PE. COMPARISON: None TECHNIQUE: After the intravenous administration of 5.5 mCi of technetium 99 M MAA a perfusion lung study was performed. After the inhalation of 1 mCi of technetium 99 M DTPA aerosol a ventilation lung study was performed. FINDINGS: There is no perfusion abnormality. IMPRESSION: There is no scintigraphic evidence of a pulmonary embolus. <Electronically signed by Blu Neff > 06/28/20 [id number]
--- NOTE | 2020-06-28 12:16 | CR ---
CONSULTATION DATE: 06/28/2020 REASON FOR CONSULTATION: Acute kidney injury superimposed on chronic kidney disease and left lower extremity edema. HISTORY OF PRESENT ILLNESS: Mr. Baird is a 74-year-old gentleman with a past medical history of coronary artery disease, status post coronary artery bypass surgery, history of prior nephrostomy tube placement due to obstruction and history of prostate cancer. He has a known history of Stage III chronic kidney disease and was recently seen in the office for increased leg edema. His diuretic was increased. Patient presented to the Emergency Room on June 27 due to worsening leg edema and was found to have a decline in kidney function. A renal ultrasound showed significant hydronephrosis of the right kidney and mild hydronephrosis on the left side. Patient had a Vasquez catheter placed with about 1.6 liters of urine output immediately. A Nephrology consultation was requested and the patient is seen this morning. PAST MEDICAL HISTORY: Significant for: 1. History of chronic kidney disease. 2. History of coronary artery disease, status post a CABG. 3. History of ureteral obstruction with right ureteral stent placement. 4. History of prostate cancer. 5. History of hyperlipidemia. 6. History of COPD. 7. History of paroxysmal atrial fibrillation. 8. History of insulin requiring diabetes. 9. Depression. 10.Gastroesophageal reflux disease. PAST SURGICAL HISTORY: Significant for: 1. CABG. 2. Right lower extremity fracture and repair. 3. Cholecystectomy. 4. Cystoscopy. 5. Electrovaporization of prostate. 6. Ureteral stent placement on the right side. 7. Bilateral nephrostomy tube placement in the past. PERSONAL AND SOCIAL HISTORY: Patient is and is retired. He denies any alcohol or drug use. He quit smoking about 30 years ago. FAMILY HISTORY: Mother is with breast cancer, father with stomach cancer. There is a family history of diabetes in the family. MEDICATIONS: 1. Amlodipine 10 mg daily. 2. Aspirin 81 mg daily. 3. Atorvastatin 10 mg daily. 4. Vitamin D 1000 units daily. 5. Citalopram 20 mg daily. 6. Famotidine 20 mg daily. 7. Finasteride 5 mg daily. 8. Gabapentin 100 mg t.i.d. 9. Levemir insulin 40 units daily in the a.m. and 50 units in the p.m. 10.Tradjenta 5 mg daily. 11.Magnesium oxide 400 mg daily. 12.Zofran 4 mg b.i.d. 13.Flomax 0.4 mg two tablets daily. ALLERGIES: The patient has an allergy to penicillin and Vancomycin. REVIEW OF SYSTEMS: The patient is sitting in the chair at the time of my visit, just finished eating breakfast. He denies any fever or chills. Ears, nose and throat are unremarkable. Cardiovascular system: Negative for dyspnea or chest pain. He does have a history of left lower extremity edema. Respiratory system: Negative for hemoptysis or pleuritic type of chest pain. GI system is negative for vomiting or diarrhea. system is as per history of present illness. Musculoskeletal system: Significant for left lower extremity edema. Patient denies any recent falls or injuries. Endocrine system: Significant for insulin requiring diabetes. Hematological system: Negative for long-term anticoagulation. Skin is negative for rash or ulcers. PHYSICAL EXAMINATION: Temperature is 97.5 degrees Fahrenheit, heart rate is 60 per minute, and respiratory rate is 18 per minute. Blood pressure 147/60 mmHg and oxygen saturation is 95% on room air. Head is atraumatic. Neck is supple and JVD is not abnormally elevated sitting upright. Lungs sound clear to auscultation. Heart sounds are regular. Abdomen is soft and nontender. Bowel sounds are normal. Extremities without any cyanosis or clubbing. There is no edema on his right leg and left leg edema is about 1+. Neurologically, he seems to be grossly intact without any focal deficit. LABORATORY DATA: WBC count is 10.2 today, hemoglobin 11.6 and hematocrit 35.7. Yesterday, his BUN was 44 and creatinine 3.7. Sodium 138, potassium 4.6. Today, BUN is down to 41 and creatinine 2.94. Glucose is 99. Calcium is 9.1, sodium 138 and potassium 4.4. A urinalysis showed 1+ blood and no protein. CT scan of the abdomen and pelvis done yesterday: Urinary bladder with some wall thickening, moderate left and severe right sided hydronephrosis and hydroureter. Bilateral perinephric stranding and nonspecific bilateral inguinal and intraperitoneal lymph nodes. Small bilateral pleural effusions were also noticed. PROBLEMS: 1. Acute renal failure superimposed on chronic kidney disease, most likely the result of obstructive uropathy as the patient had large urinary retention with severe hydronephrosis on the right side. His Vasquez catheter is now draining clear urine and kidney function is starting to improve. I would recommend to continue with liberal fluid intake due to the possibility of postobstructive diuresis. I would recommend to hold off on his diuretics for now. 2. Urinary retention, most likely related to bladder neck obstruction. Patient does have a history of BPH and prostate cancer with prior radiation. He will need further Urology follow-up. 3. Anemia, he does have mild anemia for which no intervention will be needed at present. 4. Hypertension. Blood pressure seems very well-controlled on current medications and should continue the same. I will recommend to hold off his diuretics for now. Thank you for involving me in the care of Mr. Baird. I will follow him along with you.
--- NOTE | 2020-06-28 12:55 | IPNPDOC ---
Subjective Review oF Systems Chief Complaint The patient is a 74-year-old male admitted with a reason for visit of Renal Failure Swelling Of Lower Extremity. Events since Last Encounter The patient's CT imaging demonstrates significant dilation of both ureters down to the region of the ureterovesical junction. This is very similar to the process. He experienced several years ago causing bilateral hydronephrosis. I reviewed the patient's chart he does have a documented history of metastatic prostate cancer and is on intermittent androgen deprivation therapy. I discussed this with the patient again this morning he denies any knowledge of history of prostate cancer. I explained the need to carry out cystoscopy and placement of bilateral internal ureteral catheters to alleviate obstruction of urinary tract and improve the patient's renal function I explained the procedure to the patient appeared to be carried out under anesthesia via cystoscopy with hopeful placement of bilateral internal ureteral catheters. I explained that if the catheters could not be placed in a retrograde manner that it may be necessary to place bilateral percutaneous nephrostomies as a secondary procedure. Patient states he agrees with proceeding. Objective Physical Examination General Exam: Cooperative, No Acute Distress Vital Signs/I&O Vital Signs Date Time Temp Pulse Resp B/P (MAP) Pulse Ox O2 Delivery O2 Flow Rate FiO2 06/28/20 08:33 60 147/60 06/28/20 06:00 97.5 18 95 Room Air I&O- Last 24 Hours up to 6 AM 06/28/20 06:00 Intake Total 1170 ml Output Total 2500 ml Balance -1330 ml Laboratory Data Labs 24H Laboratory Tests 2 06/27/20 13:51: Immature Granulocyte % (Auto) 0.6, Neutrophils (%) (Auto) 60.8, Lymphocytes (%) (Auto) 21.6L, Monocytes (%) (Auto) 9.1H, Eosinophils (%) (Auto) 7.3H, Basophils (%) (Auto) 0.6, Neutrophils # (Auto) 6.5, Lymphocytes # (Auto) 2.3, Monocytes # (Auto) 1.0H, Eosinophils # (Auto) 0.8H, Basophils # (Auto) 0.1, Nucleated Red Blood Cells % (auto) 0.0, Erythrocyte Sedimentation Rate 32H, Prothrombin Time 14.2H, Prothromb Time International Ratio 1.08, Activated Partial Thromboplast Time 28.5, D-Dimer, Quantitative 1096.47H, POC Glucose (Misc Panel) 192H, POC Sodium (Misc Panel) 138, POC Potassium (Misc Panel) 4.6, POC Chloride (Misc Panel) 106, POC Total CO2 (Misc Panel) 23.0, POC Blood Urea Nitrogen (Misc Panel 44H, POC Ionized Calcium (Misc Panel) 5.0, POC Creatinine (Misc Panel) 3.7H, POC Hematocrit (Misc Panel) 34.0L, Lactic Acid Level 1.2, Total Bilirubin 0.7, Direct Bilirubin 0.1, Aspartate Amino Transf (AST/SGOT) 30, Alanine Aminotransferase (ALT/SGPT) 24, Alkaline Phosphatase 98, Total Creatine Kinase 65, Creatine Kinase MB < 1.0, Creatine Kinase MB Relative Index 1.54, Troponin I < 0.02, C-Reactive Protein, Quantitative 0.64H, BS-[id number]-Type Natriuretic Peptide 1363H, Total Protein 6.7, Albumin 3.1L, Albumin/Globulin Ratio 0.9 06/27/20 13:53: POC Troponin I (Misc) 0.00 06/27/20 15:09: Coronavirus (COVID-19)(PCR) NEGATIVE, Influenza Type A (RT-PCR) NEGATIVE, Influenza Type B (RT-PCR) NEGATIVE, Respiratory Syncytial Virus (PCR) NEGATIVE 06/27/20 15:49: Urine Color YELLOW, Urine Appearance CLEAR, Urine pH 5.0, Urine Specific [place] 1.009, Urine Protein NEGATIVE, Urine Glucose (UA) 1+H, Urine Ketones NEGATIVE, Urine Blood 1+H, Urine Nitrite NEGATIVE, Urine Bilirubin NEGATIVE, Urine Urobilinogen 0.2, Urine Leukocyte Esterase NEGATIVE, Urine WBC (Auto) 5H, Urine RBC (Auto) 8H, Urine Hyaline Casts (Auto) 0, Urine Bacteria (Auto) NEGATIVE, Urine Squamous Epithelial Cells 0, Urine Sperm (Auto) 06/27/20 16:30: Bedside Glucose (Misc Panel) 129H 06/27/20 19:55: Bedside Glucose (Misc Panel) 131H 06/28/20 00:54: Bedside Glucose (Misc Panel) 117H 06/28/20 05:27: Nucleated Red Blood Cells % (auto) 0.0, Anion Gap 8, Glomerular Filtration Rate 22.4L, Calcium Level 9.1, Total Bilirubin 0.8, Aspartate Amino Transf (AST/SGOT) 27, Alanine Aminotransferase (ALT/SGPT) 21, Alkaline Phosphatase 81, Total Protein 6.5, Albumin 3.0L, Albumin/Globulin Ratio 0.9 06/28/20 11:22: Bedside Glucose (Misc Panel) 213H CBC/BMP Laboratory Tests 06/27/20 13:51 06/28/20 05:27 FSBS Laboratory Tests Test 06/27/20 16:30 06/27/20 19:55 06/28/20 00:54 06/28/20 11:22 Range/Units Bedside Glucose (Misc Panel) 129 131 117 213 83-110 MG/DL Microbiology Microbiology 06/27/20 Blood Culture, Received Pending 06/27/20 Blood Culture, Received Pending Assessment/Plan Date Seen The patient was seen on 06/28/20. Plan/VTE VTE Prophylaxis Ordered?: No Plan We'll proceed with cystoscopy and hopeful placement of bilateral internal ureteral catheters in the operating room this afternoon under anesthesia. CAPRICE PARKS MD June 28, 2020 12:55
[2020-06-28 14:00] VITALS: BP 147/60
--- NOTE | 2020-06-28 14:58 | IPNPDOC ---
Date Seen The patient was seen on 06/28/20. Progress Note SUBJECTIVE: OR today for cystoscopy, b/l internal ureteral catheter placement by urology. Good u/o with garcia over past 24H. No acute complaints overnight. OBJECTIVE: PHYSICAL EXAMINATION: VS: Stable CONSTITUTIONAL: No acute distress, resting comfortably, AAO x 3 EYES: PERRLA, EOM intact HENT, MOUTH: Normocephalic, atraumatic, moist mucous membranes NECK: SUPPLE, no JVD, no lymphadenopathy, no carotid bruit CV: Regular rate and rhythm, S1S2 normal, no murmurs/rubs/gallops RESPIRATORY: CTAB , no rales/rhonchi/crackles GI: obese protuberant abd, BS positive in 4 quadrants, soft, nontender, no rebound or guarding, no organomegaly : garcia catheter MUSCULOSKELETAL: Normal ROM. No cyanosis, clubbing, swelling, joint deformity, +2 pitting edema in the left lower extremity to upper thigh, +1 pitting edema in the right lower extremity- decreased from admission slightly INTEGUMENTARY: resolution of mild pinkish tinting of his left lower extremity. excoriation markings up and down left leg. Small open ulcer along well healing right anterior cortes scar, nonsuppurative. NEUROLOGIC: Cranial Nerves II-XII are intact, no focal deficits PSYCHIATRIC: Mood and affect are normal LABORATORY DATA: Please see below MICRO: UA neg BCx x 2 sets: NG to date IMAGING: V/Q scan 06/28/20: No evidence of PE CT abd/pelvis 06/27/20: 1. Garcia catheter balloon within collapsed urinary bladder which demonstrate wall thickening and surrounding edema. Underlying cystitis among other pa thologies cannot be excluded on this exam. 2. Moderate left and severe right-sided hydronephrosis and hydro ureters through the UVJ. This could be secondary to an obstructive process at the trigone or could be due to obstruction from the Garcia catheter balloon. 3. Bilateral nonspecific perinephric stranding more prominent on the right. Underlying pyelonephritis cannot be excluded. 4. Nonspecific bilateral inguinal and retroperitoneal lymph nodes measuring up to 2.5 x 1.4 cm. These could be reactive however underlying neoplastic etiology cannot be excluded. These lymph nodes are not of bulky size to explain compressive obstructive etiology for lower extremity swelling. 5. Nonspecific subcutaneous stranding and edema more prominent in the flanks and hips could be secondary to 3rd spacing. 6. Small bilateral inguinal and umbilical fat containing hernias. 7. Small bilateral pleural effusions with overlying atelectasis. This in combination with the subcutaneous edema suggested third-spacing which could explain lower extremity edema. Other etiologies cannot be excluded. 8. Presacral edema could be secondary to the overall pelvic edema and edema around the urinary bladder however underlying element of proctitis cannot be excluded. Correlate clinically. Renal US 06/27/20: 1. Right-sided hydronephrosis. 2. Mild dilatation of the calices on the left. 3. Evidence of medical renal disease. Left knee XR: The compartments are symmetric and relatively well maintained. There is no acute fracture or destructive osseous lesion. CXR: There is no acute cardiopulmonary disease. No significant change from the prior exam US LLE: There is no ultrasonographic evidence of deep venous thrombosis involving any of the visualized deep venous structures of the left thigh, as described above. ASSESSMENT: 74-year-old male with past mental history of CAD status post CABG, history of ureteral obstruction with stent placement and nephrostomy tube placements in the past, prostate cancer, BPH, hyperlipidemia, COPD, GERD diabetes mellitus admitted for further workup of acute kidney injury, rule out obstructive uropathy versus prerenal causes PLAN: Acute kidney injury on CKD Stage III likely multifactorial 2/2 to obstructive uropathy (Hx f BPH, prostate CA, ureteral obstruction) with bilateral hydronephrosis, diuretic use -Cr improved to 2.97, 1650 mL out with garcia in place/24H -Hx of hydronephrosis requiring nephrostomy tubes, stenting, followed with Dr. Castorena -CT abd/pelvis above- demonstrates significant dilation of both ureters down to the region of the ureterovesical junction. This is very similar to the process he experienced several years ago causing bilateral hydronephrosis -UA neg -Per urology 06/28/20: Explained the need to carry out cystoscopy and placement of bilateral internal ureteral catheters to alleviate obstruction of urinary tract and improve the patient's renal function. Will need cystoscopy with hopeful placement of bilateral internal ureteral catheters. It was explained by urology that if the catheters could not be placed in a retrograde manner that it may be necessary to place bilateral percutaneous nephrostomies as a secondary procedure. -F/u further urological recommendations -C/w flomax and finasteride -Nephrology is also following LLE swelling, acute on chronic, possible lymphedema with prior vein harvesting in that leg for CABG? -> 2-3 months of LLE swelling in leg that veins were taken from for CABG -swelling slightly improved over 24 hours -No s/s of cellulitis this AM -WBC 10.2, afebrile -C/w treatment above -F/u nephrology recommendations for fluid removal when appropriate (Cr further improves) , compression stockings Elevated BNP, r/o CHF with exacerbation -No documented CHF but hx of CAD s/p CABG, increased lower ext swelling -no prior echo on file, does not follow with cardiology in community -BNP 1363 -Trops neg, ECG similar to old with nonspecific changes -F/u echo ordered -C/w BB, CCB, holding diuretics 2/2 to EZRA -Low salt diet, weigh daily, close monitoring of I&O Shortness of breath could be multifactorial: COPD, ? CHF- resolved and currently on RA -Not believed to be in exacerbation for COPD but cannot r/o CHF exacerbation -wheezing resolved -V/Q neg for PE -Albuterol PRN -Tx for CHF above Nonspecific bilateral inguinal and retroperitoneal lymph nodes measuring up to 2.5 x 1.4 cm. -Per CT, these could be reactive however underlying neoplastic etiology cannot be excluded -consider additional w/u once acute issues above resolve -Hx of metastatic prostate cancer? CAD/CABG/AK -Denies chest pain, trops neg -No ECG changes -C/w home ASA, CCB, BB, statin HLD -Statin IDDM -BS 192 -Holding PO glipizide, c/w levemir -ISS and FS AC/HS, CC diet, hypoglycemic protocol Depression -Denies HI/SI -C/w home med GERD -Famotidine DVT px -Heparin SC DISPOSITION: Admitted as acute inpatient. Urology taking to OR today, nephrology following. PT: pt may require 1-2 days to return to previous level of function before d/c home with prior family assist and possible rehab follow up in the home. DNR/DNI. VS, I&O, 24H, Fishbone Vital Signs/I&O Vital Signs Date Time Temp Pulse Resp B/P (MAP) Pulse Ox O2 Delivery O2 Flow Rate FiO2 06/28/20 14:00 98.0 66 16 147/60 (89) 94 Room Air I&O- Last 24 Hours up to 6 AM 06/28/20 06:00 Intake Total 1170 ml Output Total 2500 ml Balance -1330 ml Laboratory Data 24H LABS Laboratory Tests 2 06/27/20 15:09: Coronavirus (COVID-19)(PCR) NEGATIVE, Influenza Type A (RT-PCR) NEGATIVE, Influenza Type B (RT-PCR) NEGATIVE, Respiratory Syncytial Virus (PCR) NEGATIVE 06/27/20 15:49: Urine Color YELLOW, Urine Appearance CLEAR, Urine pH 5.0, Urine Specific [place] 1.009, Urine Protein NEGATIVE, Urine Glucose (UA) 1+H, Urine Ketones NEGATIVE, Urine Blood 1+H, Urine Nitrite NEGATIVE, Urine Bilirubin NEGATIVE, Urine Urobilinogen 0.2, Urine Leukocyte Esterase NEGATIVE, Urine WBC (Auto) 5H, Urine RBC (Auto) 8H, Urine Hyaline Casts (Auto) 0, Urine Bacteria (Auto) NEGATIVE, Urine Squamous Epithelial Cells 0, Urine Sperm (Auto) 06/27/20 16:30: Bedside Glucose (Misc Panel) 129H 06/27/20 19:55: Bedside Glucose (Misc Panel) 131H 06/28/20 00:54: Bedside Glucose (Misc Panel) 117H 06/28/20 05:27: Nucleated Red Blood Cells % (auto) 0.0, Anion Gap 8, Glomerular Filtration Rate 22.4L, Calcium Level 9.1, Total Bilirubin 0.8, Aspartate Amino Transf (AST/SGOT) 27, Alanine Aminotransferase (ALT/SGPT) 21, Alkaline Phosphatase 81, Total Protein 6.5, Albumin 3.0L, Albumin/Globulin Ratio 0.9 06/28/20 11:22: Bedside Glucose (Misc Panel) 213H CBC/BMP Laboratory Tests 06/28/20 05:27 Microbiology Microbiology 06/27/20 Blood Culture - Preliminary, Resulted No growth after 24 hours . All specim... 06/27/20 Blood Culture - Preliminary, Resulted No growth after 24 hours . All specim... Shea Kevin MD June 28, 2020 14:58
[2020-06-28] MEDS ORDERED: propofoL 200 MG/20 ML VIAL As Ordered ONE (17:41)
[2020-06-28] MEDS ORDERED: fentaNYL 100 MCG/2 ML INJECTION (J3010) As Ordered ONE (17:41)
[2020-06-28] MEDS ORDERED: METOCLOPRAMIDE INJ 10MG/2ML VIAL (J2765 PER 1) As Ordered ONE (17:41)
[2020-06-28] MEDS ORDERED: ONDANSETRON 4MG/2ML VIAL As Ordered ONE (17:41)
[2020-06-28] MEDS ORDERED: ROCURONIUM BROMIDE 50 MG/5 ML VIAL As Ordered ONE (17:41)
[2020-06-28] MEDS ORDERED: LIDOCAINE 2% 100MG/5ML SDV (FOR ANES.) As Ordered ONE (17:41)
[2020-06-28] MEDS ORDERED: CONRAY-60 60% 50ML VIAL (Q9961) As Ordered ONE (17:43)
[2020-06-28] MEDS ORDERED: SUGAMMADEX SODIUM 500 MG/5 ML VIAL (BRIDION) As Ordered ONE (18:21)
[2020-06-28] MEDS ORDERED: PERCOCET 5MG/325MG TAB PO PRN (19:05)
[2020-06-28] MEDS ORDERED: NS 1,000 ML IV SCH (19:05)
[2020-06-28] MEDS ORDERED: fentaNYL 100 MCG/2 ML INJECTION (J3010) IV PRN (19:05)
[2020-06-28] MEDS ORDERED: ONDANSETRON 4MG/2ML VIAL IV PRN (19:05)
--- NOTE | 2020-06-28 19:59 | ECGEPIP ---
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
[2020-06-28 20:25] VITALS: BP 129/68
[2020-06-28 21:25] VITALS: BP 149/73
[2020-06-28] MEDS: FAMOTIDINE 20 MG TAB PO SCH (21:53)
[2020-06-28] MEDS: METOPROLOL SUCC (TopROL XL) 50MG **XL** TAB PO SCH (21:54)
[2020-06-28] MEDS: ATORVASTATIN 10 MG TAB PO SCH (21:54)
[2020-06-28] MEDS: FINASTERIDE 5 MG TAB PO SCH (21:54)
[2020-06-28 22:25] VITALS: BP 130/75
[2020-06-28 23:25] VITALS: BP 129/78
[2020-06-29 00:25] VITALS: BP 132/50
[2020-06-29 02:00] VITALS: BP 132/56
[2020-06-29 06:00] VITALS: BP 133/55
[2020-06-29 06:08] LABS: HEMATOCRIT 34.1 % (42.0-52.0); HEMOGLOBIN 11.1 g/dl (13.5-17.5); MEAN CORPUSCULAR HEMOGLOBIN 29.2 pg (27.0-33.0); MEAN CORPUSCULAR HGB CONC 32.6 g/dl (32.0-36.5); MEAN CORPUSCULAR VOLUME 89.7 fl (80.0-96.0); PLATELET COUNT, AUTOMATED 205 10^3/uL (150-450)
[2020-06-29 06:26] LABS: BILIRUBIN,TOTAL 0.7 MG/DL (0.2-1.0); CALCIUM LEVEL 8.7 MG/DL (8.8-10.2); CREATININE FOR GFR 2.83 MG/DL (0.70-1.30); GLOMERULAR FILTRATION RATE 23.4 (>42); POTASSIUM SERUM 4.6 MEQ/L (3.5-5.1); TOTAL PROTEIN 6.3 GM/DL (6.4-8.2)
[2020-06-29] MEDS: HumaLOG INSULIN (NovoLOG) PER UNIT SC SCH ×4 (07:30→20:34)
--- NOTE | 2020-06-29 07:39 | RO ---
OPERATIVE NOTE DATE OF OPERATION: 06/28/2020 PREOPERATIVE DIAGNOSIS: Bilateral hydronephrosis, renal insufficiency, metastatic prostate cancer. POSTOPERATIVE DIAGNOSIS: Bilateral hydronephrosis, renal insufficiency, metastatic prostate cancer. PROCEDURE: Cystourethroscopy and placement of left internal ureteral catheter. SURGEON: Ray Gleason MD ANESTHESIA: General. COMPLICATIONS: None. DRAINS: Variable length x 6 [place] double pigtail left internal ureteral catheter, 18 [place] Vasquez catheter in bladder. SPECIMENS: None. ESTIMATED BLOOD LOSS: 10 mL BLOOD REPLACED: None. HISTORY: The patient is a 74-year-old male with a history of metastatic prostate cancer and prior episodes of ureteral obstruction with chronic renal insufficiency who was admitted to the hospital with left lower extremity swelling. Deterioration in renal function was noted on laboratory studies. Renal ultrasound and CT imaging demonstrate bilateral hydronephrosis, more severe on the right than the left. The right kidney is quite atrophic. It is recommended the patient undergo cystoscopy and placement of retrograde internal ureteral catheters to decompress the renal collecting system and maximize his renal function. The procedure was carefully explained to the patient along with the benefits, risks, alternatives, possible adverse effects. Informed consent was obtained. PROCEDURE: After successful anesthetization with a satisfactory level of general anesthesia, the patient was placed in the dorsal lithotomy position on the cystoscopy table. The patient's genitalia were prepped and draped in sterile manner after removing the existing Vasquez catheter. The #22 [place] Olympus cystoscope sheath with a 30 degree lens was inserted in the urethra. The anterior urethra was normal except for changes consistent with an indwelling Vasquez catheter. The prostatic urethra had a TURP type defect with some irregular tissue more severe, heaped up on the right extending on the trigone on the right side. A search was made for the right ureteral orifice. I could not visualize this. The left ureteral orifice was easily visualized and a guidewire was inserted through a 5 [place] open-end ureteral catheter in the left renal collecting system. Over this, a variable length x 6 [place] double pigtail internal ureteral catheter was placed with the proximal end coiled in the renal pelvis, the distal end coiled in the bladder. A thorough examination of the bladder once again demonstrated evidence of ingrowth of prostate tissue to the right side of the trigone. The right ureteral orifice could not be identified. The scope was withdrawn. An 18 [place] two-way Vasquez catheter was placed in the bladder and connected to dependent drainage. The patient was awakened and transported to the recovery room in satisfactory condition, having tolerated the procedure well.
--- NOTE | 2020-06-29 08:17 | IPNPDOC ---
Subjective Review oF Systems Chief Complaint The patient is a 74-year-old male admitted with a reason for visit of Renal Failure Swelling Of Lower Extremity. Events since Last Encounter The patient has no complaints this morning. Yesterday he underwent cystoscopy with placement of a left internal ureteral catheter. The right ureteral orifice could not be identified the place a right internal ureteral catheter. His left kidney is significantly greater amount of parenchyma than the right. I explained the operative findings with the patient. Vasquez catheter should be left in place to assure proper emptying of the bladder since the patient presented in retention. At this time do not recommend placement of a right nephrostomy, would prefer to observe his renal function with decompression of his left collecting system. He probably has very little function in his chronically obstructed right kidney. He has been afebrile overnight. Vasquez catheter is in place draining slightly blood-tinged urine. Morning labs reveal creatinine of 2.3, BUN of 39 Objective Physical Examination General Exam: Alert, Cooperative, No Acute Distress Vital Signs/I&O Vital Signs Date Time Temp Pulse Resp B/P (MAP) Pulse Ox O2 Delivery O2 Flow Rate FiO2 06/29/20 06:00 98.6 64 14 133/55 (81) 95 Room Air 06/28/20 21:00 2.0 I&O- Last 24 Hours up to 6 AM 06/29/20 06:00 Intake Total 790 ml Output Total 2425 ml Balance -1635 ml Laboratory Data Labs 24H Laboratory Tests 2 06/28/20 11:22: Bedside Glucose (Misc Panel) 213H 06/28/20 16:21: Bedside Glucose (Misc Panel) 194H 06/28/20 21:32: Bedside Glucose (Misc Panel) 314H 06/29/20 05:33: Nucleated Red Blood Cells % (auto) 0.0, Anion Gap 6L, Glomerular Filtration Rate 23.4L, Calcium Level 8.7L, Total Bilirubin 0.7, Aspartate Amino Transf (AST/SGOT) 29, Alanine Aminotransferase (ALT/SGPT) 21, Alkaline Phosphatase 88, Total Protein 6.3L, Albumin 3.0L, Albumin/Globulin Ratio 0.9 CBC/BMP Laboratory Tests 06/29/20 05:33 FSBS Laboratory Tests Test 06/28/20 11:22 06/28/20 16:21 06/28/20 21:32 Range/Units Bedside Glucose (Misc Panel) 213 194 314 83-110 MG/DL Microbiology Microbiology 06/27/20 Blood Culture - Preliminary, Resulted No growth after 24 hours . All specim... 06/27/20 Blood Culture - Preliminary, Resulted No growth after 24 hours . All specim... Assessment/Plan Date Seen The patient was seen on 06/29/20. Plan/VTE VTE Prophylaxis Ordered?: No Plan Assessment: 1. Metastatic prostate cancer with bilateral ureteral obstruction and acute exacerbation of chronic renal disease status post placement of left internal ureteral catheter which is the kidney which has greater amount of renal parenchyma than the right on CT imaging. I suspect his right renal collecting system has been obstructed for quite some time. 2. Urinary retention Vasquez catheter in place Plan: Observation of renal function post decompression of bladder and left renal collecting system. I discussed this plan of management with the patient. CAPRICE PARKS MD June 29, 2020 08:17
--- NOTE | 2020-06-29 08:38 | ECHO ---
DATE OF PROCEDURE: 06/28/2020 Age: 74 Gender: Male Height: 165 cm Weight: 82 kg REFERRING PHYSICIAN: Shea Kevin M.D. INDICATION: Renal failure, lower extremity edema. MEASUREMENTS: IVS 1.0 cm LV 4.2 cm LVPW 0.9 cm LA 3.9 cm Aorta 3.1 cm IVC 1.8 cm Mitral E wave velocity 109 Mitral A wave 65 E prime septal 5.4 E prime lateral 6.5 FINDINGS: This study is of acceptable technical quality. The patient is in sinus rhythm. Normal LV size with overall normal LV systolic function and estimated EF approximately 55% to 60%. Subtle septal wall motion abnormality likely related to prior open heart surgery. Right ventricle also appears to have normal size and systolic function. Both atria are grossly normal. Aortic valve is tricuspid. It is mildly calcified, but mobility of cusps is preserved. Mitral valve also exhibits mild degenerative abnormalities with mitral annular calcifications, but mobility of leaflets is intact. Tricuspid and pulmonic valves are poorly visualized, but grossly appear normal. No pericardial effusion is noted. Inferior vena cava is upper limits of normal size and there is some reduction in collapsibility indicative of at least mildly elevated central venous pressure. Aortic root and visualized segment of aortic arch appear normal. Abdominal aorta was not well seen. Doppler interrogation of the aortic valve reveals no insufficiency and trivial stenosis. There is trace mitral and mild tricuspid insufficiency. Calculated pulmonary artery pressure is around 40 mmHg. Mitral inflow pattern and tissue Doppler imaging of the mitral annulus revealed likely pseudonormal filling pattern indicative of grade 2 diastolic dysfunction. CONCLUSIONS: 1. Study is of acceptable technical quality. The patient is in sinus rhythm. 2. Normal LV size with preserved LV systolic function and grade 2 diastolic dysfunction. 3. Aortic sclerosis, but no significant stenosis or insufficiency. 4. Mild tricuspid insufficiency. 5. At least mildly elevated central venous pressure and likely moderate pulmonary hypertension. MTDD
[2020-06-29] MEDS: LEVEMIR (INSULIN DETEMIR) 1 UNITS/0.01ML SC SCH ×2 (09:00→20:33)
[2020-06-29] MEDS: CitaloPRAM (CeleXA) 20 MG TAB PO SCH (09:33)
[2020-06-29] MEDS: GABAPENTIN 100 MG CAP PO SCH ×2 (09:33→20:35)
[2020-06-29] MEDS: ASPIRIN 81MG ENTERIC TABLET PO SCH (09:33)
[2020-06-29] MEDS: HEPARIN SOD (PORCINE) 5000UNITS/ML 1ML VIAL/SYRINGE SC SCH ×2 (09:33→20:33)
[2020-06-29] MEDS: TAMSULOSIN 0.4 MG CAP PO SCH (09:33)
[2020-06-29 10:00] VITALS: BP 150/96
[2020-06-29] MEDS ORDERED: FUROSEMIDE 40 MG TAB PO ONE (11:05)
--- NOTE | 2020-06-29 12:34 | IPN ---
PROGRESS NOTE DATE: 06/29/2020 Mr. Baird is seen this morning on his bedside. He is feeling well and denies any complaints. He has a Vasquez catheter, which is draining slightly pinkish urine. Patient denies any nausea or vomiting. PHYSICAL EXAMINATION: Temperature 98.5 degrees Fahrenheit, heart rate 62 per minute, respiratory rate 16 per minute, blood pressure 150/96, mmHg, and oxygen saturation 94% on room air. Head is atraumatic. Neck supple, and jugular venous distention (JVD) about 9 cm above sternal angle. Lungs with slightly diminished breath sounds and basilar rales. Heart sounds are regular. Abdomen obese and nontender. Bowel sounds are normal. Extremities with no cyanosis or clubbing. Lower extremity edema is 3+ on the left and 1+ on the right lower extremity. Neurologically, he is grossly intact without a focal deficit. Today's labs show WBC count 11.0, hemoglobin 11.1, and hematocrit 34.1. Platelets 205. Sodium 140, potassium 4.6, CO2 of 25, BUN 39, and creatinine 2.83. Glucose 98 and calcium 8.7. PROBLEMS: 1. Acute kidney injury superimposed on chronic kidney disease. Slight improvement in kidney function noticed. Patient has good urine output since Vasquez catheter placed. We will continue to monitor his kidney function closely. There is no need for dialysis at present. 2. Urinary retention, most likely related to his prostate issue and bladder neck obstruction. Since Vasquez catheter placed, he is draining clear urine with slight pinkish color. At present we will continue to maintain his Vasquez catheter. 3. Congestive heart failure. His volume status remains slightly decompensated. His diuretics were held due to possibility of postobstructive diuresis; however, he has diuresed only moderately. I am going to resume Lasix 40 mg twice a day and will monitor his kidney function and electrolytes closely. 4. Hypertension. Blood pressure has been well controlled, and I am cutting down his amlodipine dose to 5 mg daily in view of lower extremity edema and need for diuretic.
--- NOTE | 2020-06-29 12:57 | REP ---
INDICATION: HYDRONEPHROSIS. COMPARISON: None. TECHNIQUE: Two C-arm views abdomen and pelvis. FINDINGS: Left ureter is catheterized. Left ureteral stent is placed. The distal end is coiled in the region of the urinary bladder. The proximal end is coiled in the region of the left renal pelvis. IMPRESSION: 9 seconds fluoroscopy time utilized. <Electronically signed by Damon Shaffer > 06/29/20 0332
[2020-06-29 14:00] VITALS: BP 150/65
--- NOTE | 2020-06-29 14:05 | IPNPDOC ---
Text Note Date of Service The patient was seen on 06/29/20. NOTE SUBJECTIVE: -No acute complaints this AM -Had cystoscopy yesterday with placement and L ureteral stent and could not place a R sided one. OBJECTIVE: VS: see below CONSTITUTIONAL: No acute distress, resting comfortably, AAO x 3 EYES: PERRLA, EOM intact HENT, MOUTH: Normocephalic, atraumatic, moist mucous membranes NECK: SUPPLE, no JVD, no lymphadenopathy, no carotid bruit CV: Regular rate and rhythm, S1S2 normal, no murmurs/rubs/gallops RESPIRATORY: CTAB , no rales/rhonchi/crackles GI: obese protuberant abd, normoactive sounds, soft, nontender, no rebound or guarding, no organomegaly : garcia catheter in place, draining pink blood tinged clear yellow urine MUSCULOSKELETAL: Normal ROM. No cyanosis, clubbing, swelling, joint deformity, +2 pitting edema in the left lower extremity to upper thigh, +1 pitting edema in the right lower extremity- decreased from admission slightly SKIN: Excoriation markings up and down left leg. Small open ulcer along well healing right anterior cortes scar, nonsuppurative. NEUROLOGIC: Cranial Nerves II-XII are intact, no focal deficits PSYCHIATRIC: Mood and affect are normal LABORATORY DATA: Reviewed WBC 11 Hgb 11.1 platelets 203 na 140 K 4.6 BUN 39 Cr 2.83 MICRO: UA neg BCx x 2 sets: NG to date IMAGING: V/Q scan 06/28/20: No evidence of PE CT abd/pelvis 06/27/20: 1. Garcia catheter balloon within collapsed urinary bladder which demonstrate wall thickening and surrounding edema. Underlying cystitis among other pathologies cannot be excluded on this exam. 2. Moderate left and severe right-sided hydronephrosis and hydro ureters through the UVJ. This could be secondary to an obstructive process at the trigone or could be due to obstruction from the Garcia catheter balloon. 3. Bilateral nonspecific perinephric stranding more prominent on the right. Underlying pyelonephritis cannot be excluded. 4. Nonspecific bilateral inguinal and retroperitoneal lymph nodes measuring up to 2.5 x 1.4 cm. These could be reactive however underlying neoplastic etiology cannot be excluded. These lymph nodes are not of bulky size to explain compressive obstructive etiology for lower extremity swelling. 5. Nonspecific subcutaneous stranding and edema more prominent in the flanks and hips could be secondary to 3rd spacing. 6. Small bilateral inguinal and umbilical fat containing hernias. 7. Small bilateral pleural effusions with overlying atelectasis. This in combination with the subcutaneous edema suggested third-spacing which could explain lower extremity edema. Other etiologies cannot be excluded. 8. Presacral edema could be secondary to the overall pelvic edema and edema around the urinary bladder however underlying element of proctitis cannot be excluded. Correlate clinically. Renal US 06/27/20: 1. Right-sided hydronephrosis. 2. Mild dilatation of the calices on the left. 3. Evidence of medical renal disease. Left knee XR: The compartments are symmetric and relatively well maintained. There is no acute fracture or destructive osseous lesion. CXR: There is no acute cardiopulmonary disease. No significant change from the prior exam US LLE: There is no ultrasonographic evidence of deep venous thrombosis involving any of the visualized deep venous structures of the left thigh, as described above. TTE: This study is of acceptable technical quality. The patient is in sinus rhythm. Normal LV size with overall normal LV systolic function and estimated EF approximately 55% to 60%. Subtle septal wall motion abnormality likely related to prior open heart surgery. Right ventricle also appears to have normal size and systolic function. Both atria are grossly normal. Aortic valve is tricuspid.It is mildly calcified, but mobility of cusps is preserved. Mitral valve also exhibits mild degenerative abnormalities with mitral annular calcifications, butmobility of leaflets is intact. Tricuspid and pulmonic valves are poorly visualized, but grossly appear normal. No pericardial effusion is noted. Inferior vena cava is upper limits of normal size and there is some reduction incollapsibility indicative of at least mildly elevated central venous pressure. Aortic root and visualized segment of aortic arch appear normal. Abdominal aortawas not well seen. Doppler interrogation of the aortic valve reveals no insufficiency and trivial stenosis. There is trace mitral and mild tricuspid insufficiency. Calculated pulmonary artery pressure is around 40 mmHg. Mitral inflow pattern and tissue Doppler imaging of the mitral annulus revealed likely pseudonormal filling pattern indicative of grade 2 diastolic dysfunction. CONCLUSIONS: 1. Study is of acceptable technical quality. The patient is in sinus rhythm. 2. Normal LV size with preserved LV systolic function and grade 2 diastolic dysfunction. 3. Aortic sclerosis, but no significant stenosis or insufficiency. 4. Mild tricuspid insufficiency. 5. At least mildly elevated central venous pressure and likely moderate pu lmonary hypertension. ASSESSMENT: 74-year-old M with a medical history of CAD status post CABG, h istory of ureteral obstruction with stent placement and nephrostomy tube placements in the past, prostate cancer, BPH, hyperlipidemia, COPD, GERD diabetes mellitus admitted for obstructive uropathy. PLAN: Acute kidney injury on CKD Stage III likely multifactorial 2/2 to obstructive uropathy (history of prostate CA, prostatomegaly with ureteral obstruction) with bilateral hydronephrosis, and diuretic use -Making robust urine output -s/p L ureteral stent with cystoscopy done 06/28 and was unable to place R sided stent -Hx of hydronephrosis requiring nephrostomy tubes previously, stenting, followed with Dr. Castorena -CT abd/pelvis above- demonstrates significant dilation of both ureters down to the region of the ureterovesical junction, similar to prior -UA neg -Urology consulted, s/p cystoscopy and L ureteral stent and following urological recommendations -C/w flomax and finasteride -Nephrology is also following LLE swelling, acute on chronic, possible lymphedema with prior vein harvesting in that leg for CABG? -> 2-3 months of LLE swelling in leg that veins were taken from for CABG -swelling slightly improved over 24 hours -No s/s of cellulitis -WBC 10.2, afebrile -compression stockings HFpEF exacerbation: with elevated BNP and clinical volume overload -TTE as noted above -BNP 1363 -Trops neg, ECG similar to old with nonspecific changes -C/w BB, CCB, resuming diuretics today, lasix 40 BID PO, per nephrology -Low salt diet, weigh daily, close monitoring of I&O Shortness of breath could be multifactorial: COPD, HFpEF- resolved and currently on RA -Not evidence of COPD exacerbation -wheezing resolved -V/Q neg for PE -Albuterol PRN -diuresis per noted above Nonspecific bilateral inguinal and retroperitoneal lymph nodes measuring up to 2.5 x 1.4 cm. -Per CT, these could be reactive however underlying neoplastic etiology cannot be excluded, i/s/o a hx of metastatic prostate cancer -Defer to outpatient w/u once acute issues above resolved CAD/CABG/IL -Denies chest pain, trops neg -No ECG changes -C/w home ASA, CCB, BB, statin HLD -Statin IDDM -BS 192 -Holding PO glipizide, c/w levemir -ISS and FS AC/HS, CC diet, hypoglycemic protocol Depression -Denies HI/SI -C/w home med GERD -Famotidine DVT px -Heparin SC DISPOSITION: Admitted as acute inpatient.PT: Pt may require 1-2 days to return to previous level of function before d/c home with prior family assist and possible rehab follow up in the home. DNR/DNI. VS,Fishbone, I+O VS, Fishbone, I+O Laboratory Tests 06/29/20 05:33 Vital Signs Date Time Temp Pulse Resp B/P (MAP) Pulse Ox O2 Delivery O2 Flow Rate FiO2 06/29/20 09:34 65 144/96 06/29/20 06:00 98.6 14 95 Room Air 06/28/20 21:00 2.0 I&O- Last 24 Hours up to 6 AM 06/29/20 06:00 Intake Total 790 ml Output Total 2425 ml Balance -1635 ml ADITYA WHITE MD June 29, 2020 10:27
[2020-06-29] MEDS: FUROSEMIDE 40 MG TAB PO SCH (16:56)
[2020-06-29] MEDS: ATORVASTATIN 10 MG TAB PO SCH (20:36)
[2020-06-29] MEDS: FAMOTIDINE 20 MG TAB PO SCH (20:36)
[2020-06-29] MEDS: METOPROLOL SUCC (TopROL XL) 50MG **XL** TAB PO SCH (20:36)
[2020-06-29] MEDS: FINASTERIDE 5 MG TAB PO SCH (20:36)
[2020-06-29 22:00] VITALS: BP 157/65
[2020-06-30 05:44] LABS: HEMATOCRIT 36.2 % (42.0-52.0); HEMOGLOBIN 11.9 g/dl (13.5-17.5); MEAN CORPUSCULAR HEMOGLOBIN 29.3 pg (27.0-33.0); MEAN CORPUSCULAR HGB CONC 32.9 g/dl (32.0-36.5); MEAN CORPUSCULAR VOLUME 89.2 fl (80.0-96.0); PLATELET COUNT, AUTOMATED 206 10^3/uL (150-450); RED BLOOD COUNT 4.06 10^6/uL (4.30-6.10); WHITE BLOOD COUNT 9.9 10^3/uL (4.0-10.0)
[2020-06-30 06:00] VITALS: BP 146/67
[2020-06-30 06:10] LABS: BILIRUBIN,TOTAL 0.8 MG/DL (0.2-1.0); CALCIUM LEVEL 8.6 MG/DL (8.8-10.2); CREATININE FOR GFR 2.75 MG/DL (0.70-1.30); GLOMERULAR FILTRATION RATE 24.2 (>42); POTASSIUM SERUM 4.2 MEQ/L (3.5-5.1); TOTAL PROTEIN 6.7 GM/DL (6.4-8.2)
[2020-06-30] MEDS: HumaLOG INSULIN (NovoLOG) PER UNIT SC SCH ×4 (07:30→20:29)
[2020-06-30] MEDS: LEVEMIR (INSULIN DETEMIR) 1 UNITS/0.01ML SC SCH ×2 (07:45→20:29)
--- NOTE | 2020-06-30 08:05 | IPNPDOC ---
Subjective Review oF Systems Chief Complaint The patient is a 74-year-old male admitted with a reason for visit of Renal Failure Swelling Of Lower Extremity. Events since Last Encounter The patient has no complaints this morning. Urine output last 24 hours is 4625 mL through Vasquez catheter MAXIMUM TEMPERATURE last 24 hours 99.1 Morning labs: creatinine 2.75, BUN 41, WBC is 9900, hemoglobin 11.9 g, hematocrit 36.2% PSA is 1.72 Objective Physical Examination General Exam: Alert, Cooperative, No Acute Distress, Other (Vasquez catheter is in place draining clear urine) Extremity Exam: Other (left lower extremity swelling seems to be less) Vital Signs/I&O Vital Signs Date Time Temp Pulse Resp B/P (MAP) Pulse Ox O2 Delivery O2 Flow Rate FiO2 06/30/20 06:00 98.7 60 17 146/67 (93) 93 Room Air 06/28/20 21:00 2.0 I&O- Last 24 Hours up to 6 AM 06/30/20 06:00 Intake Total 1077 ml Output Total 5325 ml Balance -4248 ml Laboratory Data Labs 24H Laboratory Tests 2 06/29/20 12:03: Bedside Glucose (Misc Panel) 110 06/29/20 16:42: Bedside Glucose (Misc Panel) 195H 06/29/20 20:05: Bedside Glucose (Misc Panel) 200H 06/30/20 05:30: Nucleated Red Blood Cells % (auto) 0.0, Anion Gap 6L, Glomerular Filtration Rate 24.2L, Calcium Level 8.6L, Total Bilirubin 0.8, Aspartate Amino Transf (AST/SGOT) 37, Alanine Aminotransferase (ALT/SGPT) 23, Alkaline Phosphatase 94, Total Protein 6.7, Albumin 3.0L, Albumin/Globulin Ratio 0.8 CBC/BMP Laboratory Tests 06/30/20 05:30 FSBS Laboratory Tests Test 06/29/20 12:03 06/29/20 16:42 06/29/20 20:05 Range/Units Bedside Glucose (Misc Panel) 110 195 200 83-110 MG/DL Microbiology Microbiology 06/27/20 Blood Culture - Preliminary, Resulted No Growth after 48 hours. All Specime... 06/27/20 Blood Culture - Preliminary, Resulted No Growth after 48 hours. All Specime... Assessment/Plan Date Seen The patient was seen on 06/30/20. Patient Summary Assessment: 1. Metastatic prostate cancer with bilateral ureteral obstruction, acute exacerbation chronic renal insufficiency, urinary retention post Vasquez catheter placement, post placement of left internal ureteral catheter, unable to place retrograde right intramural ureteral catheter, minimal improvement in renal function so far Plan/VTE VTE Prophylaxis Ordered?: No Plan 1. Leave Vasquez catheter in place, anticipate discharge home with Vasquez catheter to follow up in the office. 2. If the Patient's renal function fails to significantly improve over the next week or so with Vasquez catheter keeping the bladder empty and left internal ureteral catheter alleviating obstruction of left kidney then consider placement of right percutaneous nephrostomy 3. I discussed this with the patient. CAPRICE PARKS MD June 30, 2020 08:05
[2020-06-30] MEDS: amLODIPine 5 MG TAB PO SCH (09:00)
[2020-06-30] MEDS: FUROSEMIDE 40 MG TAB PO SCH ×2 (10:07→18:06)
[2020-06-30] MEDS: TAMSULOSIN 0.4 MG CAP PO SCH (10:08)
[2020-06-30] MEDS: GABAPENTIN 100 MG CAP PO SCH ×2 (10:08→20:28)
[2020-06-30] MEDS: ASPIRIN 81MG ENTERIC TABLET PO SCH (10:08)
[2020-06-30] MEDS: CitaloPRAM (CeleXA) 20 MG TAB PO SCH (10:08)
[2020-06-30] MEDS: HEPARIN SOD (PORCINE) 5000UNITS/ML 1ML VIAL/SYRINGE SC SCH ×2 (10:09→20:29)
[2020-06-30 14:00] VITALS: BP 140/90
--- NOTE | 2020-06-30 16:04 | IPNPDOC ---
Text Note Date of Service The patient was seen on 06/30/20. NOTE SUBJECTIVE: -No acute complaints this AM OBJECTIVE: VS: see below CONSTITUTIONAL: No acute distress, resting comfortably, AAO x 3 EYES: PERRLA, EOM intact HENT, MOUTH: Normocephalic, atraumatic, moist mucous membranes NECK: SUPPLE, no JVD, no lymphadenopathy, no carotid bruit CV: Regular rate and rhythm, S1S2 normal, no murmurs/rubs/gallops RESPIRATORY: CTAB , no rales/rhonchi/crackles GI: obese protuberant abd, normoactive sounds, soft, nontender, no rebound or guarding, no organomegaly : garcia catheter in place, draining pink blood tinged clear yellow urine MUSCULOSKELETAL: Normal ROM. No cyanosis, clubbing, swelling, joint deformity, has bilateral LE edema that is improving SKIN: Excoriation markings up and down left leg. NEUROLOGIC: Cranial Nerves II-XII are intact, no focal deficits PSYCHIATRIC: Mood and affect are normal LABORATORY DATA: Reviewed Cr 2.75 MICRO: UA neg BCx x 2 sets: NG to date IMAGING: V/Q scan 06/28/20: No evidence of PE CT abd/pelvis 06/27/20: 1. Garcia catheter balloon within collapsed urinary bladder which demonstrate wall thickening and surrounding edema. Underlying cystitis among other pathologies cannot be excluded on this exam. 2. Moderate left and severe right-sided hydronephrosis and hydro ureters through the UVJ. This could be secondary to an obstructive process at the trigone or could be due to obstruction from the Garcia catheter balloon. 3. Bilateral nonspecific perinephric stranding more prominent on the right. Underlying pyelonephritis cannot be excluded. 4. Nonspecific bilateral inguinal and retroperitoneal lymph nodes measuring up to 2.5 x 1.4 cm. These could be reactive however underlying neoplastic etiology cannot be excluded. These lymph nodes are not of bulky size to explain compress constantino obstructive etiology for lower extremity swelling. 5. Nonspecific subcutaneous stranding and edema more prominent in the flanks and hips could be secondary to 3rd spacing. 6. Small bilateral inguinal and umbilical fat containing hernias. 7. Small bilateral pleural effusions with overlying atelectasis. This in combination with the subcutaneous edema suggested third-spacing which could explain lower extremity edema. Other etiologies cannot be excluded. 8. Presacral edema could be secondary to the overall pelvic edema and edema around the urinary bladder however underlying element of proctitis cannot be excluded. Correlate clinically. Renal US 06/27/20: 1. Right-sided hydronephrosis. 2. Mild dilatation of the calices on the left. 3. Evidence of medical renal disease. Left knee XR: The compartments are symmetric and relatively well maintained. There is no acute fracture or destructive osseous lesion. CXR: There is no acute cardiopulmonary disease. No significant change from the prior exam US LLE: There is no ultrasonographic evidence of deep venous thrombosis involving any of the visualized deep venous structures of the left thigh, as described above. TTE: This study is of acceptable technical quality. The patient is in sinus rhythm. Normal LV size with overall normal LV systolic function and estimated EF approximately 55% to 60%. Subtle septal wall motion abnormality likely related to prior open heart surgery. Right ventricle also appears to have normal size and systolic function. Both atria are grossly normal. Aortic valve is tricuspid.It is mildly calcified, but mobility of cusps is preserved. Mitral valve also exhibits mild degenerative abnormalities with mitral annular calcifications, butmobility of leaflets is intact. Tricuspid and pulmonic valves are poorly visualized, but grossly appear normal. No pericardial effusion is noted. Inferior vena cava is upper limits of normal size and there is some reduction incollapsibility indicative of at least mildly elevated central venous pressure. Aortic root and visualized segment of aortic arch appear normal. Abdominal aortawas not well seen. Doppler interrogation of the aortic valve reveals no insufficiency and trivial stenosis. There is trace mitral and mild tricuspid insufficiency. Calculated pulmonary artery pressure is around 40 mmHg. Mitral inflow pattern and tissue Doppler imaging of the mitral annulus revealed likely pseudonormal filling pattern indicative of grade 2 diastolic dysfunction. CONCLUSIONS: 1. Study is of acceptable technical quality. The patient is in sinus rhythm. 2. Normal LV size with preserved LV systolic function and grade 2 diastolic dysfunction. 3. Aortic sclerosis, but no significant stenosis or insufficiency. 4. Mild tricuspid insufficiency. 5. At least mildly elevated central venous pressure and likely moderate pulmonary hypertension. ASSESSMENT: 74-year-old M with a medical history of CAD status post CABG, history of ureteral obstruction with stent placement and nephrostomy tube placements in the past, prostate cancer, BPH, hyperlipidemia, COPD, GERD diabetes mellitus admitted for obstructive uropathy. PLAN: Acute kidney injury on CKD Stage III likely multifactorial 2/2 to obstructive uropathy (history of prostate CA, prostatomegaly with ureteral obstruction) with bilateral hydronephrosis, and diuretic use -s/p L ureteral stent with cystoscopy done 06/28 and was unable to place R sided stent -Hx of hydronephrosis requiring nephrostomy tubes previously, stenting, followed with Dr. Castorena -CT abd/pelvis above- demonstrates significant dilation of both ureters down to the region of the ureterovesical junction, similar to prior -UA neg -Urology consulted, s/p cystoscopy and L ureteral stent and following urological recommendations, if no significant improvement in renal function will consider retrying for a R ureteral stent. -C/w flomax and finasteride -Nephrology onboard, on 40 PO lasix BID LLE swelling, acute on chronic, possible lymphedema with prior vein harvesting in that leg for CABG? -> 2-3 months of LLE swelling in leg that veins were taken from for CABG -swelling slightly improved over 24 hours -No s/s of cellulitis -WBC 10.2, afebrile -compression stockings HFpEF exacerbation: with elevated BNP and clinical volume overload -TTE as noted above -BNP 1363 -Trops neg, ECG similar to old with nonspecific changes -C/w BB, CCB, resuming diuretics today, lasix 40 BID PO, per nephrology -Low salt diet, weigh daily, close monitoring of I&O Shortness of breath could be multifactorial: COPD, HFpEF- resolved and currently on RA -Not evidence of COPD exacerbation -wheezing resolved -V/Q neg for PE -Albuterol PRN -diuresis per noted above Nonspecific bilateral inguinal and retroperitoneal lymph nodes measuring up to 2.5 x 1.4 cm. -Per CT, these could be reactive however underlying neoplastic etiology cannot be excluded, i/s/o a hx of metastatic prostate cancer -Defer to outpatient w/u once acute issues above resolved CAD/CABG/HI -Denies chest pain, trops neg -No ECG changes -C/w home ASA, CCB, BB, statin HLD -Statin IDDM -BS 192 -Holding PO glipizide, c/w levemir -ISS and FS AC/HS, CC diet, hypoglycemic protocol Depression -Denies HI/SI -C/w home med GERD -Famotidine DVT px -Heparin SC DISPOSITION: Admitted as acute inpatient.PT: Ongoing PT/OT, DNR/DNI. VS,Fishbone, I+O VS, Fishbone, I+O Laboratory Tests 06/30/20 05:30 Vital Signs Date Time Temp Pulse Resp B/P (MAP) Pulse Ox O2 Delivery O2 Flow Rate FiO2 06/30/20 14:00 97.7 62 18 140/90 (107) 93 Room Air 06/28/20 21:00 2.0 I&O- Last 24 Hours up to 6 AM 06/30/20 05:59 Intake Total 1017 ml Output Total 4625 ml Balance -3608 ml ADITYA WHITE MD June 30, 2020 16:03
[2020-06-30] MEDS: METOPROLOL SUCC (TopROL XL) 50MG **XL** TAB PO SCH (20:28)
[2020-06-30] MEDS: FAMOTIDINE 20 MG TAB PO SCH (20:28)
[2020-06-30] MEDS: ATORVASTATIN 10 MG TAB PO SCH (20:28)
[2020-06-30] MEDS: FINASTERIDE 5 MG TAB PO SCH (20:29)
[2020-06-30 22:00] VITALS: BP 149/59
[2020-07-01 06:00] VITALS: BP 148/59
[2020-07-01] MEDS: HumaLOG INSULIN (NovoLOG) PER UNIT SC SCH ×2 (07:30→13:19)
[2020-07-01] MEDS: LEVEMIR (INSULIN DETEMIR) 1 UNITS/0.01ML SC SCH (07:49)
--- NOTE | 2020-07-01 08:57 | IPN ---
NEPHROLOGY PROGRESS NOTE DATE: 06/30/2020 SUBJECTIVE: Mr. Baird is seen this morning on his bedside. He is feeling well and denies any new complaints. He is currently sitting in the chair. He has a Vasquez catheter which is draining clear yellow urine now. Hematuria has resolved. Patient denies any dyspnea or chest pain. His leg edema has improved with diuresis. He denies any nausea or vomiting. PHYSICAL EXAMINATION: Temperature 98.7 degrees Fahrenheit, heart rate 60 per minute, respiratory rate 18 per minute, blood pressure 148/63 mmHg, oxygen saturation 93% on room air. HEAD: Atraumatic. NECK: Supple and jugular venous distention (JVD) not abnormally elevated when sitting upright. LUNGS: Clear to auscultation. HEART SOUNDS: Regular. ABDOMEN: Soft and nontender. Bowel sounds are normal. EXTREMITIES: Without any cyanosis or clubbing. Lower extremity edema has improved significantly but still he does have mild lower extremity edema bilaterally. NEUROLOGIC: He is awake, alert and at his baseline mentation without any focal deficit. INTAKE AND OUTPUT: His intake and output records from yesterday show a total intake of 1017 and output 4625 with a negative fluid balance of almost 3.6 liters. LABORATORY STUDIES: Today's labs show WBC 9.9, hemoglobin 11.9, hematocrit 36.2, platelets 206. Sodium 139, potassium 4.2, CO2 30, BUN 41, creatinine 2.75, calcium level 8.6. Albumin 3.0. PROBLEMS: 1. Acute kidney injury superimposed on chronic kidney disease. Patient did have obstructive uropathy with bladder neck obstruction and since he had Vasquez catheter placed, his kidney function is nicely improving. There is no emergent indication for dialysis. He also has a left ureteral stent placed. 2. Congestive heart failure. His volume status has improved with good urine output and negative fluid balance. Lasix has been cut down to 40 mg daily and we will continue to monitor his volume status closely. 3. Hypertension. Blood pressure seems to be very well-controlled on current antihypertensive medicine and no changes are needed. 4. Anemia. He has mild anemia, which is stable at baseline. At present, no intervention is needed. 5. Urinary retention. Patient does have a Vasquez catheter in place, as he had significant distention of urinary bladder and hydronephrosis. He will continue with tamsulosin and finasteride and follow up with urology as an outpatient. He should be discharged with Vasquez catheter in place. DISPOSITION: From a renal standpoint, patient seems to be ready for discharge and he will follow up in our clinic one week after discharge.
[2020-07-01 09:00] VITALS: BP 147/59
[2020-07-01] MEDS: amLODIPine 5 MG TAB PO SCH (09:00)
[2020-07-01] MEDS: ASPIRIN 81MG ENTERIC TABLET PO SCH (09:02)
[2020-07-01] MEDS: GABAPENTIN 100 MG CAP PO SCH (09:02)
[2020-07-01] MEDS: FUROSEMIDE 40 MG TAB PO SCH (09:02)
[2020-07-01] MEDS: TAMSULOSIN 0.4 MG CAP PO SCH (09:03)
[2020-07-01] MEDS: CitaloPRAM (CeleXA) 20 MG TAB PO SCH (09:03)
[2020-07-01] MEDS: HEPARIN SOD (PORCINE) 5000UNITS/ML 1ML VIAL/SYRINGE SC SCH (09:04)
[2020-07-01 09:15] LABS: HEMATOCRIT 39.3 % (42.0-52.0); HEMOGLOBIN 13.3 g/dl (13.5-17.5); MEAN CORPUSCULAR HEMOGLOBIN 29.8 pg (27.0-33.0); MEAN CORPUSCULAR HGB CONC 33.8 g/dl (32.0-36.5); MEAN CORPUSCULAR VOLUME 87.9 fl (80.0-96.0); PLATELET COUNT, AUTOMATED 240 10^3/uL (150-450); RED BLOOD COUNT 4.47 10^6/uL (4.30-6.10); WHITE BLOOD COUNT 11.9 10^3/uL (4.0-10.0)
[2020-07-01 09:46] LABS: CALCIUM LEVEL 8.9 MG/DL (8.8-10.2); CREATININE FOR GFR 2.85 MG/DL (0.70-1.30); GLOMERULAR FILTRATION RATE 23.2 (>42); POTASSIUM SERUM 4.6 MEQ/L (3.5-5.1)
--- NOTE | 2020-07-01 10:06 | IPNPDOC ---
Subjective Review oF Systems Chief Complaint The patient is a 74-year-old male admitted with a reason for visit of Renal Failure Swelling Of Lower Extremity. Events since Last Encounter Patient has no complaints this morning. He is not bothered by the Vasquez catheter. Patient's been afebrile overnight. Vasquez cath is draining slightly blood-tinged urine. He has had a very large urine output last 24 hours. I discussed with the patient going home with a Vasquez catheter in place to assure his bladder is emptying properly and maximize his renal function. He voices he agreed with this Objective Physical Examination General Exam: Alert, Cooperative, No Acute Distress, Other (alert male lying in no distress. Vasquze catheter is in place draining clear urine) Extremity Exam: Other (left lower extremity swelling seems to be less) Vital Signs/I&O Vital Signs Date Time Temp Pulse Resp B/P (MAP) Pulse Ox O2 Delivery O2 Flow Rate FiO2 07/01/20 09:00 58 147/59 07/01/20 06:00 98.6 18 94 Room Air 06/28/20 21:00 2.0 I&O- Last 24 Hours up to 6 AM 07/01/20 06:00 Intake Total 1410 ml Output Total 5100 ml Balance -3690 ml Laboratory Data Labs 24H Laboratory Tests 2 06/30/20 11:46: Bedside Glucose (Misc Panel) 287H 06/30/20 16:31: Bedside Glucose (Misc Panel) 229H 06/30/20 19:53: Bedside Glucose (Misc Panel) 194H 07/01/20 06:05: Bedside Glucose (Misc Panel) 106 07/01/20 08:53: Nucleated Red Blood Cells % (auto) 0.0, Anion Gap 6L, Glomerular Filtration Rate 23.2L, Calcium Level 8.9 CBC/BMP Laboratory Tests 07/01/20 08:53 FSBS Laboratory Tests Test 06/30/20 11:46 06/30/20 16:31 06/30/20 19:53 07/01/20 06:05 Range/Units Bedside Glucose (Misc Panel) 287 229 194 106 83-110 MG/DL Microbiology Microbiology 06/27/20 Blood Culture - Preliminary, Resulted No Growth after 72 hours. All specime... 06/27/20 Blood Culture - Preliminary, Resulted No Growth after 72 hours. All specime... Assessment/Plan Date Seen The patient was seen on 07/01/20. Plan/VTE VTE Prophylaxis Ordered?: No Plan Discharge home with Vasquez catheter in place Urology office 1 week for follow-up CAPRICE PARKS MD July 01, 2020 10:06
--- NOTE | 2020-07-01 10:48 | IPNPDOC ---
Text Note Date of Service The patient was seen on 07/01/20. NOTE SUBJECTIVE: -No acute complaints this AM OBJECTIVE: VS: see below CONSTITUTIONAL: No acute distress, resting comfortably, AAO x 3 EYES: PERRLA, EOM intact HENT, MOUTH: Normocephalic, atraumatic, moist mucous membranes NECK: SUPPLE, no JVD, no lymphadenopathy, no carotid bruit CV: Regular rate and rhythm, S1S2 normal, no murmurs/rubs/gallops RESPIRATORY: CTAB , no rales/rhonchi/crackles GI: obese protuberant abd, normoactive sounds, soft, nontender, no rebound or guarding, no organomegaly : garcia catheter in place, draining pink blood tinged clear yellow urine MUSCULOSKELETAL: Normal ROM. No cyanosis, clubbing, swelling, joint deformity, has bilateral LE edema that is improving SKIN: Excoriation markings up and down left leg. NEUROLOGIC: Cranial Nerves II-XII are intact, no focal deficits PSYCHIATRIC: Mood and affect are normal LABORATORY DATA: Reviewed pending AM labs MICRO: UA neg BCx x 2 sets: NG to date IMAGING: V/Q scan 06/28/20: No evidence of PE CT abd/pelvis 06/27/20: 1. Garcia catheter balloon within collapsed urinary bladder which demonstrate wall thickening and surrounding edema. Underlying cystitis among other pathologies cannot be excluded on this exam. 2. Moderate left and severe right-sided hydronephrosis and hydro ureters through the UVJ. This could be secondary to an obstructive process at the trigone or could be due to obstruction from the Garcia catheter balloon. 3. Bilateral nonspecific perinephric stranding more prominent on the right. Underlying pyelonephritis cannot be excluded. 4. Nonspecific bilateral inguinal and retroperitoneal lymph nodes measuring up to 2.5 x 1.4 cm. These could be reactive however underlying neoplastic etiology cannot be excluded. These lymph nodes are not of bulky size to explain compressive obstructive etiology for lower extremity swelling. 5. Nonspecific subcutaneous stranding and edema more prominent in the flanks and hips could be secondary to 3rd spacing. 6. Small bilateral inguinal and umbilical fat containing hernias. 7. Small bilateral pleural effusions with overlying atelectasis. This in combination with the subcutaneous edema suggested third-spacing which could ex plain lower extremity edema. Other etiologies cannot be excluded. 8. Presacral edema could be secondary to the overall pelvic edema and edema around the urinary bladder however underlying element of proctitis cannot be excluded. Correlate clinically. Renal US 06/27/20: 1. Right-sided hydronephrosis. 2. Mild dilatation of the calices on the left. 3. Evidence of medical renal disease. Left knee XR: The compartments are symmetric and relatively well maintained. There is no acute fracture or destructive osseous lesion. CXR: There is no acute cardiopulmonary disease. No significant change from the prior exam US LLE: There is no ultrasonographic evidence of deep venous thrombosis involving any of the visualized deep venous structures of the left thigh, as described above. TTE: This study is of acceptable technical quality. The patient is in sinus rhythm. Normal LV size with overall normal LV systolic function and estimated EF approximately 55% to 60%. Subtle septal wall motion abnormality likely related to prior open heart surgery. Right ventricle also appears to have normal size and systolic function. Both atria are grossly normal. Aortic valve is tricuspid.It is mildly calcified, but mobility of cusps is preserved. Mitral valve also exhibits mild degenerative abnormalities with mitral annular calcifications, butmobility of leaflets is intact. Tricuspid and pulmonic valves are poorly visualized, but grossly appear normal. No pericardial effusion is noted. Inferior vena cava is upper limits of normal size and there is some reduction incollapsibility indicative of at least mildly elevated central venous pressure. Aortic root and visualized segment of aortic arch appear normal. Abdominal aortawas not well seen. Doppler interrogation of the aortic valve reveals no insufficiency and trivial stenosis. There is trace mitral and mild tricuspid insufficiency. Calculated pulmonary artery pressure is around 40 mmHg. Mitral inflow pattern and tissue Doppler imaging of the mitral annulus revealed likely pseudonormal filling pattern indicative of grade 2 diastolic dysfunction. CONCLUSIONS: 1. Study is of acceptable technical quality. The patient is in sinus rhythm. 2. Normal LV size with preserved LV systolic function and grade 2 diastolic dysfunction. 3. Aortic sclerosis, but no significant stenosis or insufficiency. 4. Mild tricuspid insufficiency. 5. At least mildly elevated central venous pressure and likely moderate pulmonary hypertension. ASSESSMENT: 74-year-old M with a medical history of CAD status post CABG, history of ureteral obstruction with stent placement and nephrostomy tube placements in the past, prostate cancer, BPH, hyperlipidemia, COPD, GERD diabetes mellitus admitted for obstructive uropathy. PLAN: Acute kidney injury on CKD Stage III likely multifactorial 2/2 to obstructive uropathy (history of prostate CA, prostatomegaly with ureteral obstruction) with bilateral hydronephrosis, and diuretic use -s/p L ureteral stent with cystoscopy done 06/28 and was unable to place R sided stent -Hx of hydronephrosis requiring nephrostomy tubes previously, stenting, followed with Dr. Castorena -CT abd/pelvis above- demonstrates significant dilation of both ureters down to the region of the ureterovesical junction, similar to prior -UA neg -Urology consulted, s/p cystoscopy and L ureteral stent and following urological recommendations, if no significant improvement in renal function will consider retrying for a R ureteral stent. -C/w flomax and finasteride -Nephrology onboard, on 40 PO lasix BID, llikely to reduce to daily given robust output and uptrending Cr LLE swelling, acute on chronic, possible lymphedema with prior vein harvesting in that leg for CABG? -> 2-3 months of LLE swelling in leg that veins were taken from for CABG -swelling slightly improved over 24 hours -No s/s of cellulitis -WBC 10.2, afebrile -compression stockings HFpEF exacerbation: with elevated BNP and clinical volume overload -TTE as noted above -BNP 1363 -Trops neg, ECG similar to old with nonspecific changes -C/w BB, CCB, resuming diuretics today, lasix 40 BID PO, per nephrology -Low salt diet, weigh daily, close monitoring of I&O Shortness of breath could be multifactorial: COPD, HFpEF- resolved and currently on RA -Not evidence of COPD exacerbation -wheezing resolved -V/Q neg for PE -Albuterol PRN -diuresis per noted above Nonspecific bilateral inguinal and retroperitoneal lymph nodes measuring up to 2.5 x 1.4 cm. -Per CT, these could be reactive however underlying neoplastic etiology cannot be excluded, i/s/o a hx of metastatic prostate cancer -Defer to outpatient w/u once acute issues above resolved CAD/CABG/[place] -Denies chest pain, trops neg -No ECG changes -C/w home ASA, CCB, BB, statin HLD -Statin IDDM -BS 192 -Holding PO glipizide, c/w levemir -ISS and FS AC/HS, CC diet, hypoglycemic protocol Depression -Denies HI/SI -C/w home med GERD -Famotidine DVT px -Heparin SC DISPOSITION: Admitted as acute inpatient.PT: Ongoing PT/OT, DNR/DNI. VS,Fishbone, I+O VS, Fishbone, I+O Vital Signs Date Time Temp Pulse Resp B/P (MAP) Pulse Ox O2 Delivery O2 Flow Rate FiO2 07/01/20 06:00 98.6 59 18 148/59 (88) 94 Room Air 06/28/20 21:00 2.0 I&O- Last 24 Hours up to 6 AM 07/01/20 06:00 Intake Total 1410 ml Output Total 5100 ml Balance -3690 ml ADITYA WHITE MD July 01, 2020 08:42
[2020-07-01] MEDS ORDERED: FURO40TA2 PO (12:06)
[2020-07-01] MEDS ORDERED: AMLO1TAB24 PO (12:06)
--- NOTE | 2020-07-01 12:29 | DS.PDOC ---
Discharge Summary General Date of Admission June 27, 2020 at 15:07 Date of Discharge 07/01/2020 Attending Physician: ADITYA WHITE MD Discharge Summary PROCEDURES PERFORMED DURING STAY: Cystoscopy with L ureteral stent placed by Dr. Gleason on 06/28 ADMITTING DIAGNOSES: EZRA on CKD LE swelling DISCHARGE DIAGNOSES: EZRA on stage 3 chronic kidney disease Obstructive uropathy s/p garcia placement Coronary artery disease, status post a CABG. History of ureteral obstruction with right ureteral stent placement. History of prostate cancer. Hyperlipidemia. Paroxysmal atrial fibrillation. Insulin requiring diabetes. Depression. Gastroesophageal reflux disease. COMPLICATIONS/CHIEF COMPLAINT: Renal Failure Swelling Of Lower Extremity. HISTORY OF PRESENT ILLNESS: 74-year-old gentleman with a past medical history of coronary artery disease, status post coronary artery bypass surgery, history of prior nephrostomy tube placement due to obstruction and history of prostate cancer with known history of Stage III chronic kidney disease and was recently seen in the office for increased leg edema during which diuretic was increased without much improvement, and now presented to the Emergency Room on June 27 due to worsening leg edema. HOSPITAL COURSE: He was found to have a decline in kidney function and a renal ultrasound showed significant hydronephrosis of the right kidney and mild hydronephrosis on the left side. He had a Garcia catheter placed with about1.6 liters of urine output immediately. Urology was consulted and CT imaging demonstrated significant dilation of both ureters down to the region of the ureterovesical junction and on 06/28 he had cystoscopy and placement of a L ureteral stent though the goal had been to place bilateral internal ureteral catheters to alleviate obstruction of urinary tract and improve the patient's renal function but it was complicated by that the right ureteral orifice could not be identified to the place a right internal ureteral catheter. His renal function showed some mild improvement and nephrology was consulted and resumed diuresis with a robust response. He is now being discharged home with a garcia catheter that was discussed with his sister in-law who provides most of his home care and she is confident in her ability to help with its care as she has done before for him, and will also discharge with homecare services. In the meantime, nephrology recommended 40mg PO lasix daily and will see him in clinic. Urology recommended discharge with the garcia and will follow up with him in the outpatient clinic. DISCHARGE MEDICATIONS: Please see below. ALLERGIES: Please see below. PHYSICAL EXAMINATION ON DISCHARGE: VITAL SIGNS: Please see below. CONSTITUTIONAL: No acute distress, resting comfortably, AAO x 3 EYES: PERRLA, EOM intact HENT, MOUTH: Normocephalic, atraumatic, moist mucous membranes NECK: SUPPLE, no JVD, no lymphadenopathy, no carotid bruit CV: Regular rate and rhythm, S1S2 normal, no murmurs/rubs/gallops RESPIRATORY: CTAB , no rales/rhonchi/crackles GI: obese protuberant abd, BS positive in 4 quadrants, soft, nontender, no rebound or guarding, no organomegaly : garcia catheter in place with slightly pink urine MUSCULOSKELETAL: Normal ROM. No cyanosis, clubbing, swelling, joint deformity, much improved bilateral LE edema INTEGUMENTARY: Has previously noted excoriation markings up and down left leg. Small open ulcer along well healing right anterior cortes scar, nonsuppurative. NEUROLOGIC: Cranial Nerves II-XII are intact, no focal deficits PSYCHIATRIC: Mood and affect are normal LABORATORY DATA: Please see below IMAGING: V/Q scan 06/28/20: No evidence of PE CT abd/pelvis 06/27/20: 1. Garcia catheter balloon within collapsed urinary bladder which demonstrate wall thickening and surrounding edema. Underlying cystitis among other pathologies cannot be excluded on this exam. 2. Moderate left and severe right-sided hydronephrosis and hydro ureters through the UVJ. This could be secondary to an obstructive process at the trigone or could be due to obstruction from the Garcia catheter balloon. 3. Bilateral nonspecific perinephric stranding more prominent on the right. U nderlying pyelonephritis cannot be excluded. 4. Nonspecific bilateral inguinal and retroperitoneal lymph nodes measuring up to 2.5 x 1.4 cm. These could be reactive however underlying neoplastic etiology cannot be excluded. These lymph nodes are not of bulky size to explain compressive obstructive etiology for lower extremity swelling. 5. Nonspecific subcutaneous stranding and edema more prominent in the flanks and hips could be secondary to 3rd spacing. 6. Small bilateral inguinal and umbilical fat containing hernias. 7. Small bilateral pleural effusions with overlying atelectasis. This in combination with the subcutaneous edema suggested third-spacing which could explain lower extremity edema. Other etiologies cannot be excluded. 8. Presacral edema could be secondary to the overall pelvic edema and edema around the urinary bladder however underlying element of proctitis cannot be excluded. Correlate clinically. Renal US 06/27/20: 1. Right-sided hydronephrosis. 2. Mild dilatation of the calices on the left. 3. Evidence of medical renal disease. Left knee XR: The compartments are symmetric and relatively well maintained. There is no acute fracture or destructive osseous lesion. CXR: There is no acute cardiopulmonary disease. No significant change from the prior exam US LLE: There is no ultrasonographic evidence of deep venous thrombosis involving any of the visualized deep venous structures of the left thigh, as described above. PROGNOSIS: Good ACTIVITY: As tolerated. DIET: consistent carb, 2g sodium DISCHARGE PLAN: Home with services DISPOSITION: home with services DISCHARGE INSTRUCTIONS: Home with services. Lasix 40mg daily. ITEMS TO FOLLOWUP ON ON OUTPATIENT: CKD Obstructive uropathy f/u with urology DISCHARGE CONDITION: Stable TIME SPENT ON DISCHARGE: 46 minutes. Vital Signs/I&Os Vital Signs Date Time Temp Pulse Resp B/P (MAP) Pulse Ox O2 Delivery O2 Flow Rate FiO2 07/01/20 09:00 58 147/59 07/01/20 06:00 98.6 18 94 Room Air 06/28/20 21:00 2.0 I&O- Last 24 Hours up to 6 AM 07/01/20 06:00 Intake Total 1410 ml Output Total 5100 ml Balance -3690 ml Laboratory Data Labs 24H Laboratory Tests 2 06/30/20 16:31: Bedside Glucose (Misc Panel) 229H 06/30/20 19:53: Bedside Glucose (Misc Panel) 194H 07/01/20 06:05: Bedside Glucose (Misc Panel) 106 07/01/20 08:53: Nucleated Red Blood Cells % (auto) 0.0, Anion Gap 6L, Glomerular Filtration Rate 23.2L, Calcium Level 8.9 07/01/20 11:26: Bedside Glucose (Misc Panel) 245H CBC/BMP Laboratory Tests 07/01/20 08:53 FSBS Laboratory Tests Test 06/30/20 16:31 06/30/20 19:53 07/01/20 06:05 07/01/20 11:26 Range/Units Bedside Glucose (Misc Panel) 229 194 106 245 83-110 MG/DL Microbiology Microbiology 06/27/20 Blood Culture - Preliminary, Resulted No Growth after 72 hours. All specime... 06/27/20 Blood Culture - Preliminary, Resulted No Growth after 72 hours. All specime... Discharge Medications Scheduled Amlodipine Besylate (Amlodipine Besylate) 5 Mg Tablet, 5 MG PO DAILY Aspirin (Aspirin EC) 81 Mg Tab, 81 MG PO DAILY, (Reported) Atorvastatin Calcium (Atorvastatin Calcium) 10 Mg Tab, 10 MG PO QHS, (Reported) Cholecalciferol (Vitamin D3) (Vitamin D3) 1,000 Unit Tablet, 1,000 UNITS PO DAILY, (Reported) Citalopram Hydrobromide (Citalopram HBr) 20 Mg Tab, 20 MG PO DAILY, (Reported) Famotidine (Famotidine) 40 Mg Tablet, 40 MG PO QHS, (Reported) Finasteride (Finasteride) 5 Mg Tab, 5 MG PO QHS, (Reported) Furosemide (Furosemide) 40 Mg Tablet, 40 MG PO DAILY Gabapentin (Gabapentin) 100 Mg Cap, 100 MG PO BID, (Reported) Glipizide (Glipizide) 10 Mg Tablet, 10 MG PO BID, (Reported) Insulin Detemir (Levemir Flextouch) 100 Unit/1 Ml Insuln.pen, 50 UNIT SC BID, (Reported) Linagliptin (Tradjenta) 5 Mg Tab, 5 MG PO DAILY, (Reported) Metoprolol Succinate (Metoprolol Succinate) 50 Mg Tab.er.24h, 50 MG PO QHS, (Reported) Tamsulosin HCl (Flomax) 0.4 Mg Cap, 0.8 MG PO DAILY, (Reported) Torsemide (Torsemide) 10 Mg Tablet, 10 MG PO DAILY, (Reported) Scheduled PRN Albuterol Sulf (Albuterol Sulfate) 2.5 Mg/3 Ml Vial.neb, 1 VIAL NEB Q4H PRN for SOB/WHEEZING, (Reported) Albuterol Sulfate (Ventolin Hfa) 18 Gm Hfa.aer.ad, 2 PUFFS INH QID PRN for SOB/WHEEZING, (Reported) Ondansetron (Ondansetron Odt) 4 Mg Tab.rapdis, 4 MG PO Q6H PRN for NAUSEA OR VOMITING, (Reported) Allergies Coded Allergies: Penicillins (Verified Allergy, Unknown, 05/23/18) vancomycin (Verified Allergy, Unknown, 11/08/18) ADITYA WHITE MD July 01, 2020 12:29
--- NOTE | 2020-07-01 15:28 | IPN ---
PROGRESS NOTE DATE: 07/01/2020 SUBJECTIVE: Mr. Baird is seen this morning on his bedside. He is feeling well and denies any complaint. His Vasquez catheter is draining pinkish urine with mild hematuria. The patient denies any nausea, vomiting, dyspnea, or chest pain. His leg edema has almost completely resolved. OBJECTIVE: VITAL SIGNS: Temperature 98.6 degrees Fahrenheit, heart rate 60 per minute, respiratory rate 18 per minute. Blood pressure 148/59 mmHg and oxygen saturation 94% on room air. HEAD: Atraumatic. NECK: Supple and without JVD or thyroid enlargement. HEART: Sounds are regular. LUNGS: Clear to auscultation. ABDOMEN: Soft and nontender. Bowel sounds are normal. EXTREMITIES: Without any cyanosis or clubbing. NEUROLOGIC: He is awake, alert, and at his baseline mentation. INTAKE AND OUTPUT: Records from yesterday are recorded as intake 1320 and output 5700; however, his weight is not changing at all, rather slightly higher than yesterday. LABORATORY DATA: Today's labs show WBC count 11.9, hemoglobin 13.3, hematocrit 39.3. Sodium 132, potassium 4.6, CO2 of 30, BUN 43, and creatinine 2.85, glucose 217, and calcium 8.9. PROBLEMS: 1. Congestive heart failure. Volume status much improved and well compensated now. I feel that his diuretic can be cut down just to once a day 40 mg of furosemide. 2. Acute kidney injury superimposed on chronic kidney disease. Kidney function is about the same. Slight changes are noticed. He is being diuresed with a negative fluid balance. He should not require any dialysis at this point. He has a Vasquez catheter in place. 3. Obstructive uropathy. The patient has a Vasquez catheter, which is draining pinkish urine with some hematuria. He should be discharged with the Vasquez catheter and follow-up with urology as an outpatient. 4. Disposition: From a renal standpoint, the patient can be discharged and follow-up as an outpatient in the clinic.
[2020-07-02] MEDS ORDERED: FUROSEMIDE 40 MG TAB PO SCH (09:00)
== END 2020-07-01 17:00 | disposition home health service (06) | DRG 660 ==
LOC: M ED 12:34 → M ED INP 15:07 → ENRESERV 15:30 → M MSPAV 16:25
PROVIDERS: ADMIT Internal Medicine; ATTEND Internal Medicine
PROC: 0T778DZ Dilation of Left Ureter with Intraluminal Device, Via Natural or Artificial Opening Endoscopic (ICD-10-PCS; principal; 2020-06-28 17:00)
DX: N13.1 Hydronephrosis with ureteral stricture, not elsewhere classified (principal); I50.32 Chronic diastolic (congestive) heart failure; I13.0 Hypertensive heart and chronic kidney disease with heart failure and stage 1 through stage 4 chronic kidney disease, or unspecified chronic kidney disease; N17.9 Acute kidney failure, unspecified; R33.9 Retention of urine, unspecified; I25.10 Atherosclerotic heart disease of native coronary artery without angina pectoris; E78.5 Hyperlipidemia, unspecified; I48.0 Paroxysmal atrial fibrillation; E11.9 Type 2 diabetes mellitus without complications; Z79.4 Long term (current) use of insulin; K21.9 Gastro-esophageal reflux disease without esophagitis; F32.9 Major depressive disorder, single episode, unspecified; Z85.46 Personal history of malignant neoplasm of prostate; N18.30 Chronic kidney disease, stage 3 unspecified; Z95.1 Presence of aortocoronary bypass graft; Z79.82 Long term (current) use of aspirin; Z79.899 Other long term (current) drug therapy; Z88.0 Allergy status to penicillin; Z88.1 Allergy status to other antibiotic agents; J44.9 Chronic obstructive pulmonary disease, unspecified; I25.2 Old myocardial infarction

== ENCOUNTER → 2020-08-24 | Outpatient (REF) | payer MEDICARE ==
[~2020-08-24] MED LIST changes: +AMLO1TAB24 PO; +D31000TA2 PO; -DOXY100C37 PO; +DOXY1CAP62 PO; +FAMO10TA50 PO; -FAMO1TAB25 PO; +FAMO40TA3 PO; +FURO40TA2 PO; +GLIP10TA6 PO; +METO1TAB7 PO; +ONDA4TAB6 PO; +TORS10TA3 PO
== END ==
LOC: M LAB REF 17:17
PROVIDERS: ATTEND Internal Medicine Nephrology
DX: N17.8 Other acute kidney failure (principal)

== ENCOUNTER → 2020-09-30 | Outpatient (REF) | payer MEDICARE ==
[~2020-09-30] MED LIST changes: +CASO50TA5 PO; +FURO20TA2 PO; +GLIP10TA6; +INSULANT; +TAMS1CAP17 PO
[2020-09-30 18:05] LABS: APPEARANCE, URINE MANUAL CLEAR (CLEAR); COLOR, URINE MANUAL LT YELLOW (YELLOW)
[2020-09-30 18:07] LABS: BILIRUBIN, URINE MANUAL NEGATIVE (NEGATIVE); GLUCOSE, URINE (UA) MANUAL 4+(1000 MG/DL) mg/dL (NEGATIVE); KETONE, URINE MANUAL NEGATIVE (NEGATIVE); PH,URINE MAN 5.5 UNITS (5.0 - 7.0); PROTEIN, URINE MANUAL 1+ mg/dL (NEGATIVE); UROBILINOGEN, URINE MANUAL NORMAL (NORMAL)
[2020-09-30 18:08] LABS: BLOOD URINE MANUAL POSITIVE (NEGATIVE); LEUKOCYTE ESTERASE, URINE MAN POSITIVE (NEGATIVE); NITRITE, URINE MANUAL NEGATIVE (NEGATIVE)
[2020-09-30 18:21] LABS: BACTERIA, URINE NONE SEEN; HYALINE CAST, URINE NONE SEEN /lpf (0-1); SQUAMOUS EPITHELIAL CELL URINE NONE SEEN /hpf (SMALL AMT)
== END ==
LOC: M SMT 16:45
PROVIDERS: ATTEND Nurse Practitioner Women's Health
DX: Z01.818 Encounter for other preprocedural examination (principal); N13.30 Unspecified hydronephrosis; Z79.899 Other long term (current) drug therapy

== ENCOUNTER → 2020-10-08 | Outpatient (CLI) | payer MEDICARE ==
[2020-10-08 13:32] LABS: APPEARANCE, URINE CLEAR (CLEAR); BACTERIA, URINE AUTO NEGATIVE (NEGATIVE); BILIRUBIN, URINE AUTO NEGATIVE (NEGATIVE); BLOOD, URINE BLOOD 1+ (NEGATIVE); COLOR, URINE YELLOW (YELLOW); GLUCOSE, URINE (UA) AUTO NEGATIVE (NEGATIVE); KETONE, URINE AUTO NEGATIVE (NEGATIVE); LEUKOCYTE ESTERASE, URINE AUTO 3+ (NEGATIVE); NITRITE, URINE AUTO NEGATIVE (NEGATIVE); PROTEIN, URINE AUTO 1+ mg/dL (NEGATIVE); RBC, URINE AUTO 1 /HPF (0-3); SPECIFIC GRAVITY URINE AUTO 1.009 (1.002-1.035); SQUAMOUS EPITHELIAL CELL UR AU 0 /HPF (0-6); UROBILINOGEN, URINE AUTO 0.2 mg/dL (0.0-2.0); WBC, URINE AUTO 12 /HPF (0-3)
[2020-10-08 13:35] LABS: BASO # 0.1 10^3/uL (0.0-0.2); BASO % 0.5 % (0.0-1.0); EOS # 0.7 10^3/uL (0.0-0.5); EOS % 5.9 % (0.0-3.0); HEMATOCRIT 40.1 % (42.0-52.0); LYMPH # 2.2 10^3/uL (1.5-5.0); LYMPH % 19.4 % (24.0-44.0); MEAN CORPUSCULAR HEMOGLOBIN 28.6 pg (27.0-33.0); MEAN CORPUSCULAR HGB CONC 32.4 g/dl (32.0-36.5); MEAN CORPUSCULAR VOLUME 88.1 fl (80.0-96.0); MONO # 0.8 10^3/uL (0.0-0.8); MONO % 6.7 % (2.0-8.0); NEUTROPHILS # 7.5 10^3/uL (1.5-8.5); NEUTROPHILS % 67.1 % (36.0-66.0); PLATELET COUNT, AUTOMATED 262 10^3/uL (150-450); RED BLOOD COUNT 4.55 10^6/uL (4.30-6.10); WHITE BLOOD COUNT 11.2 10^3/uL (4.0-10.0)
[2020-10-08 13:45] LABS: INR 1.03; PROTHROMBIN TIME 13.9 SECONDS (12.7-14.5)
[2020-10-08 13:46] LABS: PARTIAL THROMBOPLASTIN TIME 30.5 SECONDS (25.9-37.0)
[2020-10-08 14:21] LABS: ALBUMIN 3.3 GM/DL (3.2-5.2); BILIRUBIN,TOTAL 0.8 MG/DL (0.2-1.0); CALCIUM LEVEL 9.1 MG/DL (8.8-10.2); CREATININE FOR GFR 2.1 MG/DL (0.70-1.30); POTASSIUM SERUM 5.1 MEQ/L (3.5-5.1); TOTAL PROTEIN 6.8 GM/DL (6.4-8.2)
== END ==
LOC: M PLALAB 10:16
PROVIDERS: ATTEND Family Medicine
DX: Z01.812 Encounter for preprocedural laboratory examination (principal); Z20.822 Contact with and (suspected) exposure to COVID-19; I25.810 Atherosclerosis of coronary artery bypass graft(s) without angina pectoris; Z79.899 Other long term (current) drug therapy
CPT/HCPCS: 36415; 80053; 81001; 82728; 83036; 83880; 85025; 85610; 85730; 87088; 87186; U0003

== ENCOUNTER → 2020-10-08 | Outpatient (CLI) | payer MEDICARE | LOC: M LABSMTC 10:36 | PROVIDERS: ATTEND Anesthesiology | DX: Z01.812 Encounter for preprocedural laboratory examination (principal); Z20.822 Contact with and (suspected) exposure to COVID-19 ==

== ENCOUNTER 2020-10-13 09:33 | Day surgery (SDC) | payer MEDICARE ==
[~2020-10-13] VITALS: Ht 167.6 cm; Wt 71.4 kg
[~2020-10-13 09:33] MED LIST changes: +CIPROFLOXACIN 400 MG in IV 1 EA IV ONE; +LIDOCAINE 1% MDV 20ML VIAL SQ PRN; +LR 1,000 ML IV ONE
[2020-10-13] MEDS ORDERED: fentaNYL 100 MCG/2 ML INJECTION (J3010) As Ordered ONE (10:01)
[2020-10-13] MEDS ORDERED: TRAD5TAB PO (10:03)
[2020-10-13] MEDS ORDERED: GLIP5TAB8 (10:03)
[2020-10-13] MEDS ORDERED: PHENYLephrine 500MCG 5ML (100MCG/ML) SYRINGE As Ordered ONE (10:08)
[2020-10-13] MEDS ORDERED: LIDOCAINE 2% 5ML JELLY UROJET As Ordered ONE (11:07)
[2020-10-13] MEDS ORDERED: CONRAY-60 60% 50ML VIAL (Q9961) As Ordered ONE (11:30)
[2020-10-13] MEDS ORDERED: MIDAZOLAM INJ 2MG/2ML VIAL (J2250 PER 1MG) As Ordered ONE (11:59)
[2020-10-13] MEDS ORDERED: ACETAMINOPHEN 1000MG 100ML IV BTL (OFIRMEV) (J0131 PER 10MG) As Ordered ONE (12:02)
[2020-10-13] MEDS ORDERED: propofoL 200 MG/20 ML VIAL As Ordered ONE ×2 (12:04→12:26)
[2020-10-13] MEDS ORDERED: ePHEDrine SULFATE 25 MG/5 ML(5MG/ML) SYRINGE As Ordered ONE (12:13)
--- NOTE | 2020-10-13 12:58 | RO ---
OPERATIVE NOTE DATE OF OPERATION: 10/13/2020 PREOPERATIVE DIAGNOSES: Left ureteral obstruction. POSTOPERATIVE DIAGNOSIS: Left ureteral obstruction. PROCEDURE: Cystoscopy, left ureteral stent exchange, left retrograde pyelogram and intraoperative interpreted images. SURGEON: Claus Castorena MD PEDIATRIC DERMATOLOGIST: None. ANESTHESIA: MAC. OPERATIVE INDICATIONS: This is a 74-year-old male with left ureteral obstruction secondary to metastatic prostate cancer. This is managed with chronic stenting. He is brought to the operating room today for routine stent exchange. DESCRIPTION OF PROCEDURE: The patient was brought to the operating room and MAC anesthesia was administered. Prophylactic antibiotics were infused. He was then placed in the dorsal lithotomy position in preparation for the bloodless procedure. He was then prepped and draped in the usual sterile fashion. At this point, a cystoscope was inserted into the urethral meatus and advanced into the bladder. The previously placed left ureteral stent was seen. It was grasped and withdrawn until the distal end was protruding from the urethral meatus. A guidewire was then advanced to the left collecting system and the stent was removed. I then advanced a 5 Chinese open-ended ureteral catheter up the left collecting system. The wire was then removed. A retrograde pyelogram was performed and is notable for mild left hydronephrosis with no extravasation. I then withdrew the ureteral catheter and advanced a 7 Chinese x 24 cm black silicone ureteral stent up the left collecting system. The wire was removed and there were adequate curls of the stent in the left renal pelvis and in the bladder. At this point, a 16 Chinese Vasquez catheter was inserted back into the bladder for the patient's urinary retention. The balloon was filled with 10 mL of sterile water and then the catheter was connected to gravity drainage. This marked the conclusion of the procedure. The patient was taken out of dorsal lithotomy position, awakened from anesthesia and transported to the recovery room in stable condition. ESTIMATED BLOOD LOSS: 5 mL COMPLICATIONS: None. SPECIMENS: None. PLAN: We will get a renal ultrasound in approximately 3 months to assess for any hydronephrosis. If there is no hydronephrosis, we will plan to keep the stent in longer. [facility] CENTERPriya
--- NOTE | 2020-10-13 13:08 | REP ---
INDICATION: LEFT STENT EXCHANGE. COMPARISON: None. TECHNIQUE: Intraoperative fluoroscopic imaging using portable C-arm technique. FINDINGS: Images demonstrate element of hydronephrosis and satisfactory ureteral stent placement. Total fluoroscopic time 28 seconds. IMPRESSION: Images consistent with ureteral stent placement. <Electronically signed by Angel Mitchell > 10/13/20 [id number]
[2020-10-13 14:02] VITALS: BP 134/64
== END 2020-10-13 14:10 | disposition home or self-care (01) ==
LOC: M SDC 09:33
PROVIDERS: ATTEND Urology
DX: N13.1 Hydronephrosis with ureteral stricture, not elsewhere classified (principal); C61 Malignant neoplasm of prostate; I25.810 Atherosclerosis of coronary artery bypass graft(s) without angina pectoris; E11.65 Type 2 diabetes mellitus with hyperglycemia; N18.30 Chronic kidney disease, stage 3 unspecified; I12.9 Hypertensive chronic kidney disease with stage 1 through stage 4 chronic kidney disease, or unspecified chronic kidney disease; E78.00 Pure hypercholesterolemia, unspecified; I48.91 Unspecified atrial fibrillation; Z79.899 Other long term (current) drug therapy; Z79.82 Long term (current) use of aspirin; Z79.4 Long term (current) use of insulin; Z88.0 Allergy status to penicillin; Z88.1 Allergy status to other antibiotic agents; Z95.1 Presence of aortocoronary bypass graft
CPT/HCPCS: 52332; 76000; C2617; J0131; J0744; J2250; J3010; Q9961

== ENCOUNTER → 2020-10-26 | Outpatient (REF) | payer MEDICARE ==
[~2020-10-26] MED LIST changes: -CIPROFLOXACIN 400 MG in IV 1 EA IV ONE; +GLIP5TAB8; -LIDOCAINE 1% MDV 20ML VIAL SQ PRN; -LR 1,000 ML IV ONE
== END ==
LOC: M LAB REF 17:22
PROVIDERS: ATTEND Internal Medicine Nephrology
DX: N18.4 Chronic kidney disease, stage 4 (severe) (principal)

== ENCOUNTER → 2021-01-07 | Outpatient (CLI) | payer MEDICARE ==
[~2021-01-07] MED LIST changes: +DOXY-443 PO; -DOXY1CAP62 PO
--- NOTE | 2021-01-07 11:40 | REP ---
INDICATION: URETERAL OBSTRUCTION COMPARISON: 06/27/2020 TECHNIQUE: Real time flynn scale ultrasound examination using curved array transducer. FINDINGS: Right kidney measures 10.7 x 6.2 x 5.8 cm and demonstrates severe hydronephrosis with significant cortical thinning and what appears to be a stent in the renal pelvis although evaluation is limited due to technical factors. Color Doppler evaluation was performed and intrarenal resistive index equals 0.61. Left kidney measures 10.3 x 6.3 x 5.4 cm and demonstrates cortical thinning and increased central sinus fat consistent with chronic renal disease. No associated hydronephrosis or obvious nephrolithiasis. Further evaluation is limited due to technical factors. Vasquez catheter identified within collapsed bladder. IMPRESSION: 1. Chronic age-related changes noted bilaterally along with suspected severe right hydronephrosis. 2. Suggestions for right renal stent poorly identified. <Electronically signed by Angel Mitchell > 01/07/21 [id number]
== END ==
LOC: M RAD 10:03
PROVIDERS: ATTEND Urology
DX: N13.1 Hydronephrosis with ureteral stricture, not elsewhere classified (principal)

== ENCOUNTER → 2021-01-18 | Outpatient (CLI) | payer MEDICARE ==
[2021-01-18 13:46] LABS: ALBUMIN 3.7 GM/DL (3.2-5.2); BILIRUBIN,TOTAL 1.2 MG/DL (0.2-1.0); CALCIUM LEVEL 10.1 MG/DL (8.8-10.2); CHOLESTEROL RISK RATIO 4.181 (<5); CREATININE FOR GFR 2.22 MG/DL (0.70-1.30); GLOMERULAR FILTRATION RATE 30.9 (>42); POTASSIUM SERUM 5.4 MEQ/L (3.5-5.1); TOTAL PROTEIN 7.4 GM/DL (6.4-8.2)
[2021-01-18 13:57] LABS: HEMOGLOBIN A1c 7.8 %
[2021-01-18 14:19] LABS: TOTAL 25(OH) VITAMIN D 48.3 NG/ML (30.0-100.0)
== END ==
LOC: M PLALAB 11:24
PROVIDERS: ATTEND Physician Assistant Medical
DX: E11.21 Type 2 diabetes mellitus with diabetic nephropathy (principal); I25.2 Old myocardial infarction; E78.00 Pure hypercholesterolemia, unspecified; E55.9 Vitamin D deficiency, unspecified
CPT/HCPCS: 36415; 80053; 80061; 82306; 82550; 83036; 83880; G0463

== ENCOUNTER → 2021-03-17 | Outpatient (REF) | payer MEDICARE ==
[~2021-03-17] MED LIST changes: -LISI-898 PO; +LISI5TAB11 PO
== END ==
LOC: M LAB REF 17:18
PROVIDERS: ATTEND Nurse Practitioner Family
DX: N18.4 Chronic kidney disease, stage 4 (severe) (principal)

== ENCOUNTER → 2021-05-02 | Outpatient (CLI) | payer MEDICARE ==
[~2021-05-02] MED LIST changes: -D31000TA2 PO; +VITA100093 PO
== END ==
LOC: M RAD 13:48
PROVIDERS: ATTEND Urology
DX: N13.30 Unspecified hydronephrosis (principal)

== ENCOUNTER → 2021-05-03 | Outpatient (CLI) | payer MEDICARE ==
[2021-05-03 15:36] LABS: BASO # 0.1 10^3/uL (0.0-0.2); BASO % 0.6 % (0.0-1.0); EOS # 0.5 10^3/uL (0.0-0.5); EOS % 4.6 % (0.0-3.0); HEMATOCRIT 39.4 % (42.0-52.0); HEMOGLOBIN 13.3 g/dl (13.5-17.5); LYMPH # 2.3 10^3/uL (1.5-5.0); LYMPH % 21.2 % (24.0-44.0); MEAN CORPUSCULAR HEMOGLOBIN 29.3 pg (27.0-33.0); MEAN CORPUSCULAR HGB CONC 33.8 g/dl (32.0-36.5); MEAN CORPUSCULAR VOLUME 86.8 fl (80.0-96.0); MONO # 0.9 10^3/uL (0.0-0.8); MONO % 7.9 % (2.0-8.0); NEUTROPHILS # 7.1 10^3/uL (1.5-8.5); NEUTROPHILS % 65.4 % (36.0-66.0); PLATELET COUNT, AUTOMATED 297 10^3/uL (150-450); RED BLOOD COUNT 4.54 10^6/uL (4.30-6.10); WHITE BLOOD COUNT 10.9 10^3/uL (4.0-10.0)
[2021-05-03 15:46] LABS: INR 1.04
[2021-05-03 15:47] LABS: PARTIAL THROMBOPLASTIN TIME 32.2 SECONDS (25.9-37.0)
[2021-05-03 16:03] LABS: ALBUMIN 3.7 GM/DL (3.2-5.2); CALCIUM LEVEL 9.4 MG/DL (8.8-10.2); CREATININE FOR GFR 2.51 MG/DL (0.70-1.30); GLOMERULAR FILTRATION RATE 26.8 (>42); POTASSIUM SERUM 4.9 MEQ/L (3.5-5.1); TOTAL PROTEIN 7.1 GM/DL (6.4-8.2)
[2021-05-03 16:53] LABS: HEMOGLOBIN A1c 7.2 %
== END ==
LOC: M PLALAB 12:27
PROVIDERS: ATTEND Family Medicine
DX: N18.30 Chronic kidney disease, stage 3 unspecified (principal); E11.65 Type 2 diabetes mellitus with hyperglycemia; I25.810 Atherosclerosis of coronary artery bypass graft(s) without angina pectoris

== ENCOUNTER → 2021-06-27 | Outpatient (CLI) | payer MEDICARE ==
[2021-06-27 13:51] LABS: BASO # 0.1 10^3/uL (0.0-0.2); BASO % 0.7 % (0.0-1.0); EOS # 0.8 10^3/uL (0.0-0.5); EOS % 7.4 % (0.0-3.0); HEMATOCRIT 39.4 % (42.0-52.0); HEMOGLOBIN 13.1 g/dl (13.5-17.5); LYMPH # 2.5 10^3/uL (1.5-5.0); LYMPH % 22.7 % (24.0-44.0); MEAN CORPUSCULAR HEMOGLOBIN 29.1 pg (27.0-33.0); MEAN CORPUSCULAR HGB CONC 33.2 g/dl (32.0-36.5); MEAN CORPUSCULAR VOLUME 87.6 fl (80.0-96.0); MONO # 0.8 10^3/uL (0.0-0.8); NEUTROPHILS % 61.9 % (36.0-66.0); PLATELET COUNT, AUTOMATED 285 10^3/uL (150-450); WHITE BLOOD COUNT 11.2 10^3/uL (4.0-10.0)
[2021-06-27 14:08] LABS: INR 1.1; PARTIAL THROMBOPLASTIN TIME 31.5 SECONDS (25.9-37.0); PROTHROMBIN TIME 14.6 SECONDS (12.7-14.5)
[2021-06-27 14:16] LABS: HEMOGLOBIN A1c 7.1 %
[2021-06-27 14:21] LABS: CALCIUM LEVEL 9.7 MG/DL (8.8-10.2); CREATININE FOR GFR 2.32 MG/DL (0.70-1.30); GLOMERULAR FILTRATION RATE 29.4 (>42); POTASSIUM SERUM 5.1 MEQ/L (3.5-5.1)
== END ==
LOC: M PLALAB 11:57
PROVIDERS: ATTEND Physician Assistant Medical
DX: Z01.818 Encounter for other preprocedural examination (principal); E11.65 Type 2 diabetes mellitus with hyperglycemia; E11.22 Type 2 diabetes mellitus with diabetic chronic kidney disease; N18.30 Chronic kidney disease, stage 3 unspecified; I25.810 Atherosclerosis of coronary artery bypass graft(s) without angina pectoris; I12.9 Hypertensive chronic kidney disease with stage 1 through stage 4 chronic kidney disease, or unspecified chronic kidney disease

== ENCOUNTER 2021-07-11 15:14 | Inpatient (IN) | payer MEDICARE ==
[~2021-07-11] VITALS: Ht 167.6 cm; Wt 69.5 kg
[~2021-07-11 15:14] MED LIST changes: +ALBU2.5V10 NEB; -ALBU83IN NEB; -GLIP5TAB8; +GLIP5TAB8 PO
[2021-07-11 15:53] LABS: ABG BASE EXCESS -5.4 (-2.0-2.0); ABG HCO3 18.9 MEQ/L (22.0-26.0); ABG O2 SATURATION 95.6 % (95.0-99.0); ABG PARTIAL PRESSURE CO2 33.3 mmHg (35.0-45.0); ABG PARTIAL PRESSURE O2 82.7 mmHg (75.0-100.0); ABG STANDARD HCO3 20.1 MEQ/L (22.0-26.0); ABG TOTAL CO2 19.9 MEQ/L (23.0-31.0); ABG pH (ARTERIAL) 7.372 UNITS (7.350-7.450)
[2021-07-11 16:09] LABS: BASO # 0.1 10^3/uL (0.0-0.2); BASO % 0.8 % (0.0-1.0); EOS # 0.2 10^3/uL (0.0-0.5); EOS % 2.6 % (0.0-3.0); HEMATOCRIT 40.9 % (42.0-52.0); HEMOGLOBIN 13.6 g/dl (13.5-17.5); LYMPH # 0.9 10^3/uL (1.5-5.0); LYMPH % 10.1 % (24.0-44.0); MEAN CORPUSCULAR HEMOGLOBIN 29.1 pg (27.0-33.0); MEAN CORPUSCULAR HGB CONC 33.3 g/dl (32.0-36.5); MEAN CORPUSCULAR VOLUME 87.4 fl (80.0-96.0); MONO # 1.1 10^3/uL (0.0-0.8); NEUTROPHILS # 6.4 10^3/uL (1.5-8.5); PLATELET COUNT, AUTOMATED 286 10^3/uL (150-450); RED BLOOD COUNT 4.68 10^6/uL (4.30-6.10); WHITE BLOOD COUNT 8.8 10^3/uL (4.0-10.0)
[2021-07-11] MEDS ORDERED: ONDANSETRON 4MG/2ML VIAL As Ordered ONE (16:32)
[2021-07-11 16:42] LABS: CK-MB VALUE MASS < 1.0 NG/ML (<3.6); CPK CREATINE PHOSPHOKINASE 77 U/L (39-308)
[2021-07-11 16:56] LABS: ALBUMIN 3.6 GM/DL (3.2-5.2); ALT/SGPT 38 U/L (12-78); BILIRUBIN,DIRECT 0.3 MG/DL (0.0-0.2); BLOOD UREA NITROGEN 37 MG/DL (7-18); CALCIUM LEVEL 9.5 MG/DL (8.8-10.2); CARBON DIOXIDE LEVEL 23 MEQ/L (21-32); CHLORIDE LEVEL 104 MEQ/L (98-107); CREATININE FOR GFR 2.53 MG/DL (0.70-1.30); GLOMERULAR FILTRATION RATE 26.6 (>42); GLUCOSE, FASTING 137 MG/DL (70-100); POTASSIUM SERUM 4.5 MEQ/L (3.5-5.1); SALICYLATE LEVEL < 1.7 MG/DL (5.0-30.0); SODIUM LEVEL 136 MEQ/L (136-145); TOTAL PROTEIN 7.6 GM/DL (6.4-8.2)
[2021-07-11 16:58] LABS: ACETAMINOPHEN LEVEL < 2.0 UG/ML (10.0-30.0); ETHYL ALCOHOL (ETHANOL) < 0.003 % (0.000-0.010)
[2021-07-11 16:59] LABS: OSMOLALITY SERUM 294 MOSM/KG (280-301)
[2021-07-11 17:03] LABS: AMPHETAMINES LEVEL URINE NEGATIVE (NEGATIVE); BARBITURATES URINE NEGATIVE (NEGATIVE); BENZODIAZEPINES URINE NEGATIVE (NEGATIVE); CANNABINOIDS URINE NEGATIVE (NEGATIVE); COCAINE METABOLITE URINE NEGATIVE (NEGATIVE); METHADONE URINE NEGATIVE (NEGATIVE); OPIATES URINE NEGATIVE (NEGATIVE); PHENCYCLIDINE URINE NEGATIVE (NEGATIVE)
[2021-07-11] MEDS ORDERED: ACETAMINOPHEN TAB 650MG DOSE (2X325MG) PO ONE (17:45)
[2021-07-11] MEDS ORDERED: PREDOPD OS (17:45)
[2021-07-11] MEDS ORDERED: CIPROFLOXACIN 400 MG in IV 1 EA IV ONE (17:45)
[2021-07-11] MEDS ORDERED: KETO0.5S15 OS (17:45)
[2021-07-11] MEDS ORDERED: PRED1SUS2 OS (17:45)
[2021-07-11 18:12] LABS: INR 1.06; PROTHROMBIN TIME 14.2 SECONDS (12.7-14.5)
[2021-07-11 18:13] LABS: PARTIAL THROMBOPLASTIN TIME 32.7 SECONDS (25.9-37.0)
[2021-07-11 18:52] LABS: RSV AMPLIFICATION NEGATIVE (NEGATIVE)
[2021-07-11] MEDS ORDERED: ATOR40TA75 PO (19:34)
[2021-07-11] MEDS ORDERED: FAMO1TAB11 PO (19:34)
[2021-07-11] MEDS ORDERED: LANTINJ4 SC ×2 (19:34)
[2021-07-11] MEDS ORDERED: HOME MED LIST COMPLETE! XX SCH (19:35)
[2021-07-11] MEDS: metroNIDAZOLE 500 MG in IV 1 EA IV SCH (20:28)
[2021-07-11 20:33] LABS: D-DIMER QUANT 1905.01 ng/ml (<500)
[2021-07-11] MEDS ORDERED: ONDANSETRON 4MG/2ML VIAL IV PRN (20:35)
[2021-07-11] MEDS ORDERED: ALBUTEROL 90 MCG/ACT 8GM HFA INHALER INH PRN (20:35)
[2021-07-11 20:36] VITALS: BP 169/81
[2021-07-11 20:43] LABS: ALBUMIN 3.2 GM/DL (3.2-5.2); BILIRUBIN,DIRECT 0.2 MG/DL (0.0-0.2); BILIRUBIN,TOTAL 0.9 MG/DL (0.2-1.0); C REACTIVE PROTEIN QUANTITATIV 1.27 MG/DL (0.00-0.30); TOTAL PROTEIN 6.9 GM/DL (6.4-8.2)
[2021-07-11] MEDS ORDERED: GLUCAGON INJ 1MG VIAL SC PRN (21:25)
[2021-07-11] MEDS ORDERED: DEXTROSE 50% 50 ML SYRINGE IV PRN (21:25)
[2021-07-11] MEDS ORDERED: GLUCOSE 4GM CHEW TABLET PO PRN (21:25)
[2021-07-11] MEDS: FAMOTIDINE 20 MG TAB PO SCH (21:42)
[2021-07-11] MEDS: GABAPENTIN 100 MG CAP PO SCH (21:42)
[2021-07-11] MEDS: ATORVASTATIN 20 MG TAB PO SCH (21:42)
[2021-07-11] MEDS: HEPARIN SOD (PORCINE) 5000UNITS/ML 1ML VIAL/SYRINGE SC SCH (21:43)
[2021-07-11] MEDS: KETOROLAC 0.5% OPHTH SOLN OS SCH (21:44)
[2021-07-11] MEDS: prednisoLONE ACET 1% OPHTH SUSP 5ML OS SCH (21:44)
[2021-07-11] MEDS ORDERED: **hydrALAZINE** 10 MG TAB PO ONE (21:55)
[2021-07-11] MEDS ORDERED: REMDESIVIR 200 MG in NS 250 ML IV ONE (22:00)
[2021-07-11] MEDS: METOPROLOL SUCC (TopROL XL) 50MG **XL** TAB PO SCH (22:07)
[2021-07-11] MEDS: LEVEMIR (INSULIN DETEMIR) 1 UNITS/0.01ML SC SCH (22:08)
[2021-07-11] MEDS: INSULIN LISPRO (NovoLOG) PER UNIT SC SCH (22:08)
[2021-07-11] MEDS ORDERED: SODIUM CHLORIDE 0.9% INJ 10 ML SYR IV ONE (23:00)
[2021-07-12] MEDS ORDERED: UNRESOLVED CLARIFICATION ENTRY XX SCH (00:01)
[2021-07-12] MEDS: metroNIDAZOLE 500 MG in IV 1 EA IV SCH ×3 (04:02→20:55)
[2021-07-12 05:15] VITALS: BP 158/70
[2021-07-12] MEDS: CIPROFLOXACIN 400 MG in IV 1 EA IV SCH ×2 (05:16→17:55)
[2021-07-12 06:27] LABS: ALBUMIN 2.9 GM/DL (3.2-5.2); BILIRUBIN,DIRECT 0.2 MG/DL (0.0-0.2); BILIRUBIN,TOTAL 0.9 MG/DL (0.2-1.0); TOTAL PROTEIN 6.8 GM/DL (6.4-8.2)
[2021-07-12] MEDS: LEVEMIR (INSULIN DETEMIR) 1 UNITS/0.01ML SC SCH ×2 (09:00→20:57)
[2021-07-12] MEDS ORDERED: FUROSEMIDE 20 MG TAB PO SCH (09:00)
[2021-07-12] MEDS: BICALUTAMIDE 50 MG TAB PO SCH (09:13)
[2021-07-12] MEDS: GABAPENTIN 100 MG CAP PO SCH ×3 (09:15→20:55)
[2021-07-12] MEDS: ASPIRIN 81MG ENTERIC TABLET PO SCH (09:15)
[2021-07-12] MEDS: VITAMIN D 1,000 INTERNATIONAL UNITS TABLET PO SCH (09:15)
[2021-07-12] MEDS: CitaloPRAM (CeleXA) 20 MG TAB PO SCH (09:15)
[2021-07-12] MEDS: HEPARIN SOD (PORCINE) 5000UNITS/ML 1ML VIAL/SYRINGE SC SCH ×2 (09:16→20:57)
[2021-07-12] MEDS: INSULIN LISPRO (NovoLOG) PER UNIT SC SCH ×4 (09:17→20:57)
[2021-07-12] MEDS: prednisoLONE ACET 1% OPHTH SUSP 5ML OS SCH ×4 (09:25→20:57)
[2021-07-12] MEDS: KETOROLAC 0.5% OPHTH SOLN OS SCH ×4 (09:25→20:57)
[2021-07-12 14:00] VITALS: BP 156/68
[2021-07-12 14:24] LABS: BASO % 0.5 % (0.0-1.0); EOS % 0.1 % (0.0-3.0); HEMATOCRIT 38.5 % (42.0-52.0); HEMOGLOBIN 13.2 g/dl (13.5-17.5); LYMPH # 1.5 10^3/uL (1.5-5.0); LYMPH % 20.2 % (24.0-44.0); MEAN CORPUSCULAR HEMOGLOBIN 29.9 pg (27.0-33.0); MEAN CORPUSCULAR HGB CONC 34.3 g/dl (32.0-36.5); MEAN CORPUSCULAR VOLUME 87.1 fl (80.0-96.0); MONO # 0.9 10^3/uL (0.0-0.8); MONO % 11.3 % (2.0-8.0); NEUTROPHILS # 5.2 10^3/uL (1.5-8.5); NEUTROPHILS % 67.6 % (36.0-66.0); PLATELET COUNT, AUTOMATED 227 10^3/uL (150-450); RED BLOOD COUNT 4.42 10^6/uL (4.30-6.10); WHITE BLOOD COUNT 7.6 10^3/uL (4.0-10.0)
[2021-07-12 19:13] LABS: ERYTHROCYTE SEDIMENTATION RATE 45 mm/hr (0-20)
[2021-07-12 20:00] VITALS: BP 160/70
[2021-07-12] MEDS: ATORVASTATIN 20 MG TAB PO SCH (20:55)
[2021-07-12] MEDS: FAMOTIDINE 20 MG TAB PO SCH (20:55)
[2021-07-12] MEDS: METOPROLOL SUCC (TopROL XL) 50MG **XL** TAB PO SCH (20:58)
[2021-07-12] MEDS: REMDESIVIR 100 MG in NS 250 ML IV SCH (22:12)
[2021-07-12] MEDS: SODIUM CHLORIDE 0.9% INJ 10 ML SYR IV SCH (22:12)
[2021-07-13] MEDS: metroNIDAZOLE 500 MG in IV 1 EA IV SCH ×3 (04:04→20:11)
[2021-07-13 04:34] VITALS: BP 140/64
[2021-07-13] MEDS: CIPROFLOXACIN 400 MG in IV 1 EA IV SCH ×2 (06:19→17:05)
[2021-07-13 07:27] LABS: BASO % 0.5 % (0.0-1.0); EOS % 0.4 % (0.0-3.0); HEMATOCRIT 36.9 % (42.0-52.0); HEMOGLOBIN 12.4 g/dl (13.5-17.5); LYMPH # 2.3 10^3/uL (1.5-5.0); LYMPH % 28.1 % (24.0-44.0); MEAN CORPUSCULAR HEMOGLOBIN 29.5 pg (27.0-33.0); MEAN CORPUSCULAR HGB CONC 33.6 g/dl (32.0-36.5); MEAN CORPUSCULAR VOLUME 87.9 fl (80.0-96.0); MONO # 0.8 10^3/uL (0.0-0.8); NEUTROPHILS # 5.1 10^3/uL (1.5-8.5); NEUTROPHILS % 60.6 % (36.0-66.0); PLATELET COUNT, AUTOMATED 206 10^3/uL (150-450); WHITE BLOOD COUNT 8.3 10^3/uL (4.0-10.0)
[2021-07-13 07:32] LABS: INR 1.17; PROTHROMBIN TIME 15.3 SECONDS (12.7-14.5)
[2021-07-13 07:34] LABS: PARTIAL THROMBOPLASTIN TIME 82.1 SECONDS (25.9-37.0)
[2021-07-13 07:45] LABS: ALBUMIN 2.9 GM/DL (3.2-5.2); BILIRUBIN,DIRECT 0.2 MG/DL (0.0-0.2); BILIRUBIN,TOTAL 0.7 MG/DL (0.2-1.0); CALCIUM LEVEL 8.1 MG/DL (8.8-10.2); CREATININE FOR GFR 2.57 MG/DL (0.70-1.30); GLOMERULAR FILTRATION RATE 26.1 (>42); POTASSIUM SERUM 3.9 MEQ/L (3.5-5.1); TOTAL PROTEIN 6.2 GM/DL (6.4-8.2)
[2021-07-13] MEDS: INSULIN LISPRO (NovoLOG) PER UNIT SC SCH ×4 (08:44→20:01)
[2021-07-13] MEDS: HEPARIN SOD (PORCINE) 5000UNITS/ML 1ML VIAL/SYRINGE SC SCH ×2 (08:44→20:11)
[2021-07-13] MEDS: KETOROLAC 0.5% OPHTH SOLN OS SCH ×4 (08:45→20:11)
[2021-07-13] MEDS: GABAPENTIN 100 MG CAP PO SCH ×3 (08:45→20:11)
[2021-07-13] MEDS: VITAMIN D 1,000 INTERNATIONAL UNITS TABLET PO SCH (08:45)
[2021-07-13] MEDS: prednisoLONE ACET 1% OPHTH SUSP 5ML OS SCH ×4 (08:45→20:12)
[2021-07-13] MEDS: BICALUTAMIDE 50 MG TAB PO SCH (08:45)
[2021-07-13] MEDS: LEVEMIR (INSULIN DETEMIR) 1 UNITS/0.01ML SC SCH ×2 (08:45→20:11)
[2021-07-13] MEDS: CitaloPRAM (CeleXA) 20 MG TAB PO SCH (08:50)
[2021-07-13] MEDS: ASPIRIN 81MG ENTERIC TABLET PO SCH (08:55)
[2021-07-13] MEDS: amLODIPine 5 MG TAB PO SCH (10:09)
[2021-07-13 12:00] VITALS: O2SAT 96
[2021-07-13 14:00] VITALS: BP_SYST 122; BP_SYST 132; BP_DIAS 62; BP_DIAS 80
[2021-07-13 16:00] VITALS: O2SAT 97
[2021-07-13] MEDS: **hydrALAZINE** 10 MG TAB PO SCH ×2 (17:05→23:04)
[2021-07-13 20:00] VITALS: BP 149/63; O2SAT 96
[2021-07-13] MEDS: ATORVASTATIN 20 MG TAB PO SCH (20:11)
[2021-07-13] MEDS: FAMOTIDINE 20 MG TAB PO SCH (20:11)
[2021-07-13] MEDS: REMDESIVIR 100 MG in NS 250 ML IV SCH (21:53)
[2021-07-13] MEDS: SODIUM CHLORIDE 0.9% INJ 10 ML SYR IV SCH (23:03)
[2021-07-14 04:00] VITALS: BP 123/56
[2021-07-14] MEDS: metroNIDAZOLE 500 MG in IV 1 EA IV SCH ×2 (04:32→12:52)
[2021-07-14] MEDS: **hydrALAZINE** 10 MG TAB PO SCH ×3 (05:26→17:09)
[2021-07-14] MEDS: CIPROFLOXACIN 400 MG in IV 1 EA IV SCH (05:36)
[2021-07-14 06:20] LABS: BASO % 0.7 % (0.0-1.0); EOS # 0.1 10^3/uL (0.0-0.5); EOS % 1.7 % (0.0-3.0); HEMATOCRIT 35.8 % (42.0-52.0); HEMOGLOBIN 11.8 g/dl (13.5-17.5); LYMPH # 2.9 10^3/uL (1.5-5.0); MEAN CORPUSCULAR HEMOGLOBIN 28.9 pg (27.0-33.0); MEAN CORPUSCULAR VOLUME 87.5 fl (80.0-96.0); MONO # 0.6 10^3/uL (0.0-0.8); MONO % 10.5 % (2.0-8.0); NEUTROPHILS # 2.2 10^3/uL (1.5-8.5); NEUTROPHILS % 37.9 % (36.0-66.0); PLATELET COUNT, AUTOMATED 199 10^3/uL (150-450); RED BLOOD COUNT 4.09 10^6/uL (4.30-6.10); WHITE BLOOD COUNT 5.9 10^3/uL (4.0-10.0)
[2021-07-14 06:55] LABS: CALCIUM LEVEL 8.6 MG/DL (8.8-10.2); CREATININE FOR GFR 2.31 MG/DL (0.70-1.30); GLOMERULAR FILTRATION RATE 29.5 (>42); POTASSIUM SERUM 3.7 MEQ/L (3.5-5.1)
[2021-07-14] MEDS: INSULIN LISPRO (NovoLOG) PER UNIT SC SCH ×4 (07:30→21:00)
[2021-07-14 08:00] VITALS: O2SAT 97
[2021-07-14] MEDS: KETOROLAC 0.5% OPHTH SOLN OS SCH ×4 (08:47→21:08)
[2021-07-14] MEDS: prednisoLONE ACET 1% OPHTH SUSP 5ML OS SCH ×4 (08:47→21:08)
[2021-07-14] MEDS: HEPARIN SOD (PORCINE) 5000UNITS/ML 1ML VIAL/SYRINGE SC SCH ×2 (08:47→21:07)
[2021-07-14] MEDS: GABAPENTIN 100 MG CAP PO SCH ×3 (08:48→21:07)
[2021-07-14] MEDS: BICALUTAMIDE 50 MG TAB PO SCH (08:48)
[2021-07-14] MEDS: CitaloPRAM (CeleXA) 20 MG TAB PO SCH (08:48)
[2021-07-14] MEDS: ASPIRIN 81MG ENTERIC TABLET PO SCH (08:48)
[2021-07-14] MEDS: LEVEMIR (INSULIN DETEMIR) 1 UNITS/0.01ML SC SCH ×2 (08:48→21:07)
[2021-07-14] MEDS: VITAMIN D 1,000 INTERNATIONAL UNITS TABLET PO SCH (08:48)
[2021-07-14] MEDS: amLODIPine 5 MG TAB PO SCH (08:50)
[2021-07-14 12:00] VITALS: BP 131/60
[2021-07-14 16:00] VITALS: O2SAT 96
[2021-07-14] MEDS: CIPROFLOXACIN 500MG TABLET PO SCH (17:08)
[2021-07-14] MEDS: metroNIDAZOLE (FLAGYL) 500MG TABLET PO SCH ×2 (17:08→21:07)
[2021-07-14 20:00] VITALS: BP 137/63; O2SAT 97
[2021-07-14] MEDS: ATORVASTATIN 20 MG TAB PO SCH (21:07)
[2021-07-14] MEDS: FAMOTIDINE 20 MG TAB PO SCH (21:07)
[2021-07-15] VITALS: O2SAT 99
[2021-07-15 04:00] VITALS: BP 143/66; O2SAT 96
[2021-07-15] MEDS: **hydrALAZINE** 10 MG TAB PO SCH ×2 (05:32)
[2021-07-15] MEDS: INSULIN LISPRO (NovoLOG) PER UNIT SC SCH ×4 (07:30→21:00)
[2021-07-15 07:33] LABS: BASO % 0.5 % (0.0-1.0); EOS # 0.1 10^3/uL (0.0-0.5); EOS % 1.2 % (0.0-3.0); HEMATOCRIT 37.4 % (42.0-52.0); HEMOGLOBIN 12.5 g/dl (13.5-17.5); LYMPH # 2.3 10^3/uL (1.5-5.0); LYMPH % 39.8 % (24.0-44.0); MEAN CORPUSCULAR HEMOGLOBIN 29.1 pg (27.0-33.0); MEAN CORPUSCULAR HGB CONC 33.4 g/dl (32.0-36.5); MEAN CORPUSCULAR VOLUME 87.2 fl (80.0-96.0); MONO # 0.6 10^3/uL (0.0-0.8); MONO % 10.7 % (2.0-8.0); NEUTROPHILS # 2.7 10^3/uL (1.5-8.5); NEUTROPHILS % 47.4 % (36.0-66.0); PLATELET COUNT, AUTOMATED 206 10^3/uL (150-450); RED BLOOD COUNT 4.29 10^6/uL (4.30-6.10); WHITE BLOOD COUNT 5.7 10^3/uL (4.0-10.0)
[2021-07-15 07:54] LABS: ALBUMIN 2.9 GM/DL (3.2-5.2); BILIRUBIN,DIRECT 0.2 MG/DL (0.0-0.2); BILIRUBIN,TOTAL 0.5 MG/DL (0.2-1.0); CALCIUM LEVEL 8.5 MG/DL (8.8-10.2); CREATININE FOR GFR 2.14 MG/DL (0.70-1.30); GLOMERULAR FILTRATION RATE 32.2 (>42); INR 1.16; POTASSIUM SERUM 4.2 MEQ/L (3.5-5.1); PROTHROMBIN TIME 15.2 SECONDS (12.7-14.5); TOTAL PROTEIN 6.2 GM/DL (6.4-8.2)
[2021-07-15 07:56] LABS: PARTIAL THROMBOPLASTIN TIME 80.9 SECONDS (25.9-37.0)
[2021-07-15 08:00] VITALS: O2SAT 98
[2021-07-15] MEDS: CitaloPRAM (CeleXA) 20 MG TAB PO SCH (08:06)
[2021-07-15] MEDS: BICALUTAMIDE 50 MG TAB PO SCH (08:06)
[2021-07-15] MEDS: GABAPENTIN 100 MG CAP PO SCH ×3 (08:07→22:30)
[2021-07-15] MEDS: ASPIRIN 81MG ENTERIC TABLET PO SCH (08:07)
[2021-07-15] MEDS: metroNIDAZOLE (FLAGYL) 500MG TABLET PO SCH ×3 (08:07→22:30)
[2021-07-15] MEDS: VITAMIN D 1,000 INTERNATIONAL UNITS TABLET PO SCH (08:07)
[2021-07-15] MEDS: HEPARIN SOD (PORCINE) 5000UNITS/ML 1ML VIAL/SYRINGE SC SCH ×2 (08:09→22:29)
[2021-07-15] MEDS: KETOROLAC 0.5% OPHTH SOLN OS SCH ×4 (08:09→22:30)
[2021-07-15] MEDS: LEVEMIR (INSULIN DETEMIR) 1 UNITS/0.01ML SC SCH ×2 (08:09→22:29)
[2021-07-15] MEDS: prednisoLONE ACET 1% OPHTH SUSP 5ML OS SCH ×4 (08:12→22:30)
[2021-07-15 12:00] VITALS: O2SAT 98
[2021-07-15 14:00] VITALS: BP 159/69
[2021-07-15] MEDS: CIPROFLOXACIN 500MG TABLET PO SCH (16:38)
[2021-07-15 20:00] VITALS: O2SAT 96
[2021-07-15] MEDS: FAMOTIDINE 20 MG TAB PO SCH (22:30)
[2021-07-15] MEDS: ATORVASTATIN 20 MG TAB PO SCH (22:30)
[2021-07-16] VITALS: O2SAT 94
[2021-07-16 06:00] VITALS: BP 157/70
[2021-07-16] MEDS: INSULIN LISPRO (NovoLOG) PER UNIT SC SCH ×4 (07:30→21:00)
[2021-07-16 08:00] VITALS: O2SAT 98
[2021-07-16] MEDS: ASPIRIN 81MG ENTERIC TABLET PO SCH (08:25)
[2021-07-16] MEDS: HEPARIN SOD (PORCINE) 5000UNITS/ML 1ML VIAL/SYRINGE SC SCH ×2 (08:25→21:57)
[2021-07-16] MEDS: KETOROLAC 0.5% OPHTH SOLN OS SCH ×4 (08:25→21:58)
[2021-07-16] MEDS: CitaloPRAM (CeleXA) 20 MG TAB PO SCH (08:25)
[2021-07-16] MEDS: prednisoLONE ACET 1% OPHTH SUSP 5ML OS SCH ×4 (08:25→21:58)
[2021-07-16] MEDS: GABAPENTIN 100 MG CAP PO SCH ×3 (08:25→21:57)
[2021-07-16] MEDS: metroNIDAZOLE (FLAGYL) 500MG TABLET PO SCH ×3 (08:25→21:57)
[2021-07-16] MEDS: VITAMIN D 1,000 INTERNATIONAL UNITS TABLET PO SCH (08:25)
[2021-07-16] MEDS: LEVEMIR (INSULIN DETEMIR) 1 UNITS/0.01ML SC SCH ×2 (09:28→21:58)
[2021-07-16] MEDS: BICALUTAMIDE 50 MG TAB PO SCH (11:56)
[2021-07-16] MEDS: CIPROFLOXACIN 500MG TABLET PO SCH (17:10)
[2021-07-16] MEDS: ATORVASTATIN 20 MG TAB PO SCH (21:57)
[2021-07-16] MEDS: FAMOTIDINE 20 MG TAB PO SCH (21:57)
[2021-07-16] MEDS: ACETAMINOPHEN TAB 650MG DOSE (2X325MG) PO PRN (22:20)
[2021-07-17 06:00] VITALS: BP 166/74
[2021-07-17] MEDS: INSULIN LISPRO (NovoLOG) PER UNIT SC SCH ×4 (07:30→20:16)
[2021-07-17] MEDS: VITAMIN D 1,000 INTERNATIONAL UNITS TABLET PO SCH (08:51)
[2021-07-17] MEDS: HEPARIN SOD (PORCINE) 5000UNITS/ML 1ML VIAL/SYRINGE SC SCH ×2 (08:51→20:28)
[2021-07-17] MEDS: metroNIDAZOLE (FLAGYL) 500MG TABLET PO SCH ×3 (08:51→20:25)
[2021-07-17] MEDS: CitaloPRAM (CeleXA) 20 MG TAB PO SCH (08:51)
[2021-07-17] MEDS: GABAPENTIN 100 MG CAP PO SCH ×3 (08:51→20:25)
[2021-07-17] MEDS: BICALUTAMIDE 50 MG TAB PO SCH (08:51)
[2021-07-17] MEDS: ASPIRIN 81MG ENTERIC TABLET PO SCH (08:51)
[2021-07-17] MEDS: KETOROLAC 0.5% OPHTH SOLN OS SCH ×4 (08:52→20:28)
[2021-07-17] MEDS: prednisoLONE ACET 1% OPHTH SUSP 5ML OS SCH ×4 (08:52→20:28)
[2021-07-17] MEDS: LEVEMIR (INSULIN DETEMIR) 1 UNITS/0.01ML SC SCH ×2 (08:57→20:29)
[2021-07-17] MEDS: **hydrALAZINE** 10 MG TAB PO SCH ×3 (12:24→20:28)
[2021-07-17] MEDS: CIPROFLOXACIN 500MG TABLET PO SCH (17:03)
[2021-07-17] MEDS: ATORVASTATIN 20 MG TAB PO SCH (20:25)
[2021-07-17] MEDS: FAMOTIDINE 20 MG TAB PO SCH (20:25)
[2021-07-18 04:13] VITALS: BP 136/62
[2021-07-18] MEDS: INSULIN LISPRO (NovoLOG) PER UNIT SC SCH ×4 (07:03→22:09)
[2021-07-18] MEDS: prednisoLONE ACET 1% OPHTH SUSP 5ML OS SCH ×4 (08:38→22:02)
[2021-07-18] MEDS: GABAPENTIN 100 MG CAP PO SCH ×3 (08:39→22:01)
[2021-07-18] MEDS: metroNIDAZOLE (FLAGYL) 500MG TABLET PO SCH (08:39)
[2021-07-18] MEDS: ASPIRIN 81MG ENTERIC TABLET PO SCH (08:39)
[2021-07-18] MEDS: BICALUTAMIDE 50 MG TAB PO SCH (08:39)
[2021-07-18] MEDS: VITAMIN D 1,000 INTERNATIONAL UNITS TABLET PO SCH (08:39)
[2021-07-18] MEDS: CitaloPRAM (CeleXA) 20 MG TAB PO SCH (08:39)
[2021-07-18] MEDS: KETOROLAC 0.5% OPHTH SOLN OS SCH ×4 (08:39→22:01)
[2021-07-18] MEDS: LEVEMIR (INSULIN DETEMIR) 1 UNITS/0.01ML SC SCH ×2 (08:40→22:08)
[2021-07-18] MEDS: HEPARIN SOD (PORCINE) 5000UNITS/ML 1ML VIAL/SYRINGE SC SCH ×2 (08:40→22:03)
[2021-07-18] MEDS: **hydrALAZINE** 10 MG TAB PO SCH ×3 (08:41→22:23)
[2021-07-18 14:00] VITALS: BP 160/73
[2021-07-18] MEDS: ATORVASTATIN 20 MG TAB PO SCH (22:00)
[2021-07-18] MEDS: FAMOTIDINE 20 MG TAB PO SCH (22:01)
[2021-07-18 22:09] VITALS: BP 176/62
[2021-07-18 23:50] VITALS: BP 150/54
[2021-07-19 05:22] VITALS: BP 148/58
[2021-07-19] MEDS: BICALUTAMIDE 50 MG TAB PO SCH (10:11)
[2021-07-19] MEDS: GABAPENTIN 100 MG CAP PO SCH ×3 (10:11→20:32)
[2021-07-19] MEDS: HEPARIN SOD (PORCINE) 5000UNITS/ML 1ML VIAL/SYRINGE SC SCH ×2 (10:11→20:32)
[2021-07-19] MEDS: ASPIRIN 81MG ENTERIC TABLET PO SCH (10:11)
[2021-07-19] MEDS: VITAMIN D 1,000 INTERNATIONAL UNITS TABLET PO SCH (10:11)
[2021-07-19] MEDS: prednisoLONE ACET 1% OPHTH SUSP 5ML OS SCH ×4 (10:12→20:33)
[2021-07-19] MEDS: **hydrALAZINE** 10 MG TAB PO SCH ×3 (10:12→20:31)
[2021-07-19] MEDS: CitaloPRAM (CeleXA) 20 MG TAB PO SCH (10:12)
[2021-07-19] MEDS: KETOROLAC 0.5% OPHTH SOLN OS SCH ×4 (10:12→20:33)
[2021-07-19] MEDS: LEVEMIR (INSULIN DETEMIR) 1 UNITS/0.01ML SC SCH ×2 (10:13→20:33)
[2021-07-19] MEDS: INSULIN LISPRO (NovoLOG) PER UNIT SC SCH ×4 (10:14→20:32)
[2021-07-19 17:35] VITALS: BP 138/64
[2021-07-19 20:00] VITALS: BP 159/72
[2021-07-19] MEDS: ATORVASTATIN 20 MG TAB PO SCH (20:32)
[2021-07-19] MEDS: FAMOTIDINE 20 MG TAB PO SCH (20:32)
[2021-07-20 04:00] VITALS: BP 113/54
[2021-07-20 06:13] LABS: HEMATOCRIT 38.3 % (42.0-52.0); HEMOGLOBIN 12.8 g/dl (13.5-17.5); MEAN CORPUSCULAR HEMOGLOBIN 29.7 pg (27.0-33.0); MEAN CORPUSCULAR HGB CONC 33.4 g/dl (32.0-36.5); MEAN CORPUSCULAR VOLUME 88.9 fl (80.0-96.0); PLATELET COUNT, AUTOMATED 219 10^3/uL (150-450); RED BLOOD COUNT 4.31 10^6/uL (4.30-6.10)
[2021-07-20 06:39] LABS: CALCIUM LEVEL 9.3 MG/DL (8.8-10.2); CREATININE FOR GFR 1.89 MG/DL (0.70-1.30); GLOMERULAR FILTRATION RATE 37.2 (>42); POTASSIUM SERUM 4.9 MEQ/L (3.5-5.1)
[2021-07-20] MEDS: HEPARIN SOD (PORCINE) 5000UNITS/ML 1ML VIAL/SYRINGE SC SCH ×2 (08:10→20:47)
[2021-07-20] MEDS: GABAPENTIN 100 MG CAP PO SCH ×3 (08:11→20:48)
[2021-07-20] MEDS: CitaloPRAM (CeleXA) 20 MG TAB PO SCH (08:11)
[2021-07-20] MEDS: VITAMIN D 1,000 INTERNATIONAL UNITS TABLET PO SCH (08:11)
[2021-07-20] MEDS: BICALUTAMIDE 50 MG TAB PO SCH (08:11)
[2021-07-20] MEDS: ASPIRIN 81MG ENTERIC TABLET PO SCH (08:11)
[2021-07-20] MEDS: LEVEMIR (INSULIN DETEMIR) 1 UNITS/0.01ML SC SCH ×2 (08:12→20:14)
[2021-07-20] MEDS: prednisoLONE ACET 1% OPHTH SUSP 5ML OS SCH ×4 (08:12→20:49)
[2021-07-20] MEDS: INSULIN LISPRO (NovoLOG) PER UNIT SC SCH ×4 (08:13→20:13)
[2021-07-20] MEDS: KETOROLAC 0.5% OPHTH SOLN OS SCH ×4 (08:13→20:49)
[2021-07-20] MEDS: **hydrALAZINE** 10 MG TAB PO SCH ×3 (08:13→20:48)
[2021-07-20 08:14] VITALS: BP 164/70
[2021-07-20 17:03] VITALS: BP 162/72
[2021-07-20] MEDS: ATORVASTATIN 20 MG TAB PO SCH (20:48)
[2021-07-20] MEDS: FAMOTIDINE 20 MG TAB PO SCH (20:48)
[2021-07-20] MEDS: ACETAMINOPHEN TAB 650MG DOSE (2X325MG) PO PRN (20:48)
[2021-07-21 05:59] VITALS: BP 157/70
[2021-07-21] MEDS: VITAMIN D 1,000 INTERNATIONAL UNITS TABLET PO SCH (08:56)
[2021-07-21] MEDS: GABAPENTIN 100 MG CAP PO SCH (08:56)
[2021-07-21] MEDS: ASPIRIN 81MG ENTERIC TABLET PO SCH (08:56)
[2021-07-21] MEDS: CitaloPRAM (CeleXA) 20 MG TAB PO SCH (08:56)
[2021-07-21] MEDS: BICALUTAMIDE 50 MG TAB PO SCH (08:57)
[2021-07-21] MEDS: INSULIN LISPRO (NovoLOG) PER UNIT SC SCH ×2 (08:57→13:05)
[2021-07-21] MEDS: HEPARIN SOD (PORCINE) 5000UNITS/ML 1ML VIAL/SYRINGE SC SCH (08:58)
[2021-07-21] MEDS: prednisoLONE ACET 1% OPHTH SUSP 5ML OS SCH ×2 (08:58→13:06)
[2021-07-21] MEDS: LEVEMIR (INSULIN DETEMIR) 1 UNITS/0.01ML SC SCH (08:58)
[2021-07-21] MEDS: KETOROLAC 0.5% OPHTH SOLN OS SCH ×2 (08:58→13:06)
[2021-07-21 09:00] VITALS: BP 125/61
[2021-07-21] MEDS: **hydrALAZINE** 10 MG TAB PO SCH (09:00)
[2021-07-21 09:01] VITALS: BP 125/61
== END 2021-07-21 16:30 | disposition home health service (06) | DRG 698 ==
LOC: EDSEX 15:14 → M ED 15:14 → EDBD 15:14 → M ED INP 18:54 → M 4MAIN 20:37
PROVIDERS: ADMIT Internal Medicine; ATTEND Family Medicine
PROC: XW033E5 Introduction of Remdesivir Anti-infective into Peripheral Vein, Percutaneous Approach, New Technology Group 5 (ICD-10-PCS; principal; 2021-07-11)
DX: T83.511A Infection and inflammatory reaction due to indwelling urethral catheter, initial encounter (principal); G93.41 Metabolic encephalopathy; U07.1 COVID-19; C79.51 Secondary malignant neoplasm of bone; N13.1 Hydronephrosis with ureteral stricture, not elsewhere classified; N18.30 Chronic kidney disease, stage 3 unspecified; N39.0 Urinary tract infection, site not specified; C61 Malignant neoplasm of prostate; Z96.0 Presence of urogenital implants; Z79.82 Long term (current) use of aspirin; Z79.4 Long term (current) use of insulin; Z79.899 Other long term (current) drug therapy; Z79.52 Long term (current) use of systemic steroids; Z88.0 Allergy status to penicillin; Z88.1 Allergy status to other antibiotic agents; E78.00 Pure hypercholesterolemia, unspecified; I25.10 Atherosclerotic heart disease of native coronary artery without angina pectoris; Z95.5 Presence of coronary angioplasty implant and graft; J44.9 Chronic obstructive pulmonary disease, unspecified; I48.91 Unspecified atrial fibrillation; E11.22 Type 2 diabetes mellitus with diabetic chronic kidney disease; Z98.49 Cataract extraction status, unspecified eye; Z90.49 Acquired absence of other specified parts of digestive tract; Z87.891 Personal history of nicotine dependence; K52.9 Noninfective gastroenteritis and colitis, unspecified; I12.9 Hypertensive chronic kidney disease with stage 1 through stage 4 chronic kidney disease, or unspecified chronic kidney disease; F32.A Depression, unspecified; F41.9 Anxiety disorder, unspecified; E78.5 Hyperlipidemia, unspecified; Z66 Do not resuscitate

== ENCOUNTER → 2021-08-03 | Outpatient (REF) | payer MEDICARE ==
[~2021-08-03] MED LIST changes: +ATOR40TA75 PO; +KETO0.5S15 OS; +LANTINJ4 SC; +PRED1SUS2 OS; +PREDOPD OS
[2021-08-03 18:14] LABS: ALBUMIN 3.4 GM/DL (3.2-5.2); BILIRUBIN,TOTAL 1.2 MG/DL (0.2-1.0); CALCIUM LEVEL 9.1 MG/DL (8.8-10.2); CREATININE FOR GFR 2.32 MG/DL (0.70-1.30); GLOMERULAR FILTRATION RATE 29.4 (>42); POTASSIUM SERUM 4.4 MEQ/L (3.5-5.1); TOTAL PROTEIN 7.4 GM/DL (6.4-8.2)
[2021-08-03 18:35] LABS: HEMOGLOBIN A1c 6.9 %
== END ==
LOC: M SFHCPLAZ 17:23
PROVIDERS: ATTEND Physician Assistant Medical
DX: E11.21 Type 2 diabetes mellitus with diabetic nephropathy (principal); E11.65 Type 2 diabetes mellitus with hyperglycemia

== ENCOUNTER → 2021-08-18 | Outpatient (CLI) | payer MEDICARE ==
[2021-08-18 16:52] LABS: HEMATOCRIT 35.2 % (42.0-52.0); HEMOGLOBIN 11.8 g/dl (13.5-17.5); MEAN CORPUSCULAR HEMOGLOBIN 29.5 pg (27.0-33.0); MEAN CORPUSCULAR HGB CONC 33.5 g/dl (32.0-36.5); PLATELET COUNT, AUTOMATED 282 10^3/uL (150-450); WHITE BLOOD COUNT 9.8 10^3/uL (4.0-10.0)
[2021-08-18 17:04] LABS: APPEARANCE, URINE CLOUDY (CLEAR); BACTERIA, URINE AUTO 2+ (NEGATIVE); BILIRUBIN, URINE AUTO NEGATIVE (NEGATIVE); BLOOD, URINE BLOOD 1+ (NEGATIVE); COLOR, URINE YELLOW (YELLOW); GLUCOSE, URINE (UA) AUTO NEGATIVE (NEGATIVE); KETONE, URINE AUTO NEGATIVE (NEGATIVE); LEUKOCYTE ESTERASE, URINE AUTO 3+ (NEGATIVE); NITRITE, URINE AUTO POSITIVE (NEGATIVE); PROTEIN, URINE AUTO 1+ mg/dL (NEGATIVE); RBC, URINE AUTO 19 /HPF (0-3); SPECIFIC GRAVITY URINE AUTO 1.008 (1.002-1.035); SQUAMOUS EPITHELIAL CELL UR AU 0 /HPF (0-6); UROBILINOGEN, URINE AUTO 0.2 mg/dL (0.0-2.0); WBC, URINE AUTO TNTC /HPF (0-3)
[2021-08-18 17:05] LABS: CALCIUM LEVEL 9.7 MG/DL (8.8-10.2); CREATININE FOR GFR 2.03 MG/DL (0.70-1.30); GLOMERULAR FILTRATION RATE 34.3 (>42); POTASSIUM SERUM 4.1 MEQ/L (3.5-5.1)
[2021-08-18 17:21] LABS: APPEARANCE, URINE CLOUDY (CLEAR); BACTERIA, URINE AUTO 1+ (NEGATIVE); BILIRUBIN, URINE AUTO NEGATIVE (NEGATIVE); BLOOD, URINE BLOOD 1+ (NEGATIVE); COLOR, URINE YELLOW (YELLOW); GLUCOSE, URINE (UA) AUTO NEGATIVE (NEGATIVE); KETONE, URINE AUTO NEGATIVE (NEGATIVE); LEUKOCYTE ESTERASE, URINE AUTO 3+ (NEGATIVE); NITRITE, URINE AUTO NEGATIVE (NEGATIVE); PROTEIN, URINE AUTO 3+ mg/dL (NEGATIVE); RBC, URINE AUTO 4 /HPF (0-3); SPECIFIC GRAVITY URINE AUTO 1.005 (1.002-1.035); SQUAMOUS EPITHELIAL CELL UR AU 0 /HPF (0-6); UROBILINOGEN, URINE AUTO 0.2 mg/dL (0.0-2.0); WBC, URINE AUTO TNTC /HPF (0-3)
[2021-08-18 17:23] LABS: INR 1.04
[2021-08-18 17:24] LABS: PARTIAL THROMBOPLASTIN TIME 34.2 SECONDS (25.9-37.0)
== END ==
LOC: M PLALAB 13:13
PROVIDERS: ATTEND Nurse Practitioner Women's Health
DX: Z01.818 Encounter for other preprocedural examination (principal); N13.5 Crossing vessel and stricture of ureter without hydronephrosis

== ENCOUNTER → 2021-08-23 | Outpatient (CLI) | payer MEDICARE | LOC: M LABSMTC 09:16 | PROVIDERS: ATTEND Anesthesiology | DX: Z01.812 Encounter for preprocedural laboratory examination (principal); Z20.822 Contact with and (suspected) exposure to COVID-19 ==

== ENCOUNTER 2021-08-26 07:31 | Day surgery (SDC) | payer MEDICARE ==
[~2021-08-26] VITALS: Ht 165.1 cm; Wt 72.1 kg
[~2021-08-26 07:31] MED LIST changes: +LevoFLOXacin IV 500 MG in IV 1 EA IV ONE
[2021-08-26] MEDS ORDERED: LR 1,000 ML IV SCH (08:25)
[2021-08-26] MEDS ORDERED: LIDOCAINE 2% INJ 100 MG/5 ML SYRINGE As Ordered ONE (09:31)
[2021-08-26] MEDS ORDERED: propofoL 200 MG/20 ML VIAL As Ordered ONE (09:31)
[2021-08-26] MEDS ORDERED: fentaNYL 100 MCG/2 ML INJECTION As Ordered ONE ×2 (09:31→16:10)
[2021-08-26] MEDS ORDERED: MIDAZOLAM INJ 2MG/2ML VIAL (J2250 PER 1MG) As Ordered ONE ×2 (09:31→16:10)
[2021-08-26] MEDS ORDERED: ONDANSETRON 4MG 2ML VIAL As Ordered ONE ×2 (09:32→16:10)
[2021-08-26] MEDS ORDERED: LIDOCAINE 2% 5ML JELLY UROJET As Ordered ONE (10:17)
[2021-08-26] MEDS ORDERED: ACETAMINOPHEN 1000MG 100ML IV BTL (OFIRMEV) (J0131 PER 10MG) As Ordered ONE (10:36)
[2021-08-26 11:54] VITALS: BP 128/60
[2021-08-26] MEDS ORDERED: dexameTHASONE 4 MG/ML 1ML VIAL (J1100 PER 1MG) As Ordered ONE (16:10)
== END 2021-08-26 12:00 | disposition home or self-care (01) ==
LOC: M SDC 07:31
PROVIDERS: ATTEND Urology
DX: N13.5 Crossing vessel and stricture of ureter without hydronephrosis (principal); C61 Malignant neoplasm of prostate; Z92.21 Personal history of antineoplastic chemotherapy; I48.91 Unspecified atrial fibrillation; I25.10 Atherosclerotic heart disease of native coronary artery without angina pectoris; I25.2 Old myocardial infarction; I10 Essential (primary) hypertension; E11.9 Type 2 diabetes mellitus without complications; Z95.1 Presence of aortocoronary bypass graft; Z88.0 Allergy status to penicillin; Z88.1 Allergy status to other antibiotic agents; E78.5 Hyperlipidemia, unspecified; F32.A Depression, unspecified; Z79.899 Other long term (current) drug therapy; Z79.82 Long term (current) use of aspirin; Z79.84 Long term (current) use of oral hypoglycemic drugs; Z79.4 Long term (current) use of insulin; Z79.51 Long term (current) use of inhaled steroids
CPT/HCPCS: 52332; 76000; C1758; C1769; C2617; J0131; J1956; J2250; J2405; J3010

== ENCOUNTER → 2022-02-08 | Outpatient (CLI) | payer MEDICARE ==
[~2022-02-08] MED LIST changes: -LevoFLOXacin IV 500 MG in IV 1 EA IV ONE
[2022-02-08 16:05] LABS: THYROID STIMULATING HORMONE 2.218 uIU/ML (0.55-4.78); TOTAL 25(OH) VITAMIN D 55.5 NG/ML (20.0-100.0)
[2022-02-08 16:07] LABS: FREE T4 1.1 NG/DL (0.89-1.76)
[2022-02-08 16:08] LABS: HEMOGLOBIN A1c 6.6 % (4.0-6.0)
== END ==
LOC: M PLALAB 12:06
PROVIDERS: ATTEND Physician Assistant Medical
DX: E11.65 Type 2 diabetes mellitus with hyperglycemia (principal); R41.3 Other amnesia; Z79.899 Other long term (current) drug therapy

== ENCOUNTER → 2022-03-01 | Outpatient (CLI) | payer MEDICARE | LOC: M WHC 10:30 | PROVIDERS: ATTEND Urology | DX: N13.1 Hydronephrosis with ureteral stricture, not elsewhere classified (principal) ==

== ENCOUNTER → 2022-03-22 | Outpatient (CLI) | payer MEDICARE ==
[~2022-03-22] MED LIST changes: +AMLO10TA PO; +INSU100I6 SC; -KETO0.5S15 OS; +KETO0.5S4 OS; -LEVE1INJ5 SC; +LEVO1TAB40 PO; +MAGN400T2 PO; +METO1TAB32 PO
[2022-03-22 15:43] LABS: BASO # 0.1 10^3/uL (0.0-0.2); BASO % 0.5 % (0.0-1.0); EOS # 0.6 10^3/uL (0.0-0.5); EOS % 5.1 % (0.0-3.0); HEMATOCRIT 37.9 % (42.0-52.0); HEMOGLOBIN 12.1 g/dl (13.5-17.5); LYMPH # 3.2 10^3/uL (1.5-5.0); LYMPH % 25.8 % (24.0-44.0); MEAN CORPUSCULAR HEMOGLOBIN 28.5 pg (27.0-33.0); MEAN CORPUSCULAR HGB CONC 31.9 g/dl (32.0-36.5); MEAN CORPUSCULAR VOLUME 89.4 fl (80.0-96.0); MONO # 0.8 10^3/uL (0.0-0.8); MONO % 6.4 % (2.0-8.0); NEUTROPHILS # 7.6 10^3/uL (1.5-8.5); NEUTROPHILS % 61.9 % (36.0-66.0); PLATELET COUNT, AUTOMATED 260 10^3/uL (150-450); RED BLOOD COUNT 4.24 10^6/uL (4.30-6.10); WHITE BLOOD COUNT 12.3 10^3/uL (4.0-10.0)
[2022-03-22 16:05] LABS: ALBUMIN 3.4 G/DL (3.2-5.2); BILIRUBIN,TOTAL 0.8 MG/DL (0.3-1.2); CALCIUM LEVEL 9.3 MG/DL (8.3-10.6); CREATININE FOR GFR 1.88 MG/DL (0.70-1.30); GLOMERULAR FILTRATION RATE 37.3 (>42); MAGNESIUM LEVEL 1.8 MG/DL (1.8-2.4); PHOSPHORUS LEVEL 4.1 MG/DL (2.4-5.1); POTASSIUM SERUM 5.7 MMOL/L (3.5-5.1); TOTAL PROTEIN 6.5 G/DL (5.7-8.2)
[2022-03-22 16:14] LABS: HEMOGLOBIN A1c 7.4 % (4.0-6.0)
[2022-03-24 15:10] LABS: PSA TOTAL 2.5 ng/mL (0.0-4.0)
== END ==
LOC: M PLALAB 12:14
PROVIDERS: ATTEND Physician Assistant Medical
DX: N18.30 Chronic kidney disease, stage 3 unspecified (principal); C61 Malignant neoplasm of prostate

== ENCOUNTER 2022-03-29 12:45 | Inpatient (IN) | payer MEDICARE ==
[~2022-03-29] VITALS: Ht 165.1 cm; Wt 68.2 kg
[~2022-03-29 12:45] MED LIST changes: -INSU100I6 SC; +KETO0.5S15 OS; -KETO0.5S4 OS; +LEVE1INJ5 SC; -LEVO1TAB40 PO; -MAGN400T2 PO
[2022-03-29 14:08] LABS: BASO % 0.2 % (0.0-1.0); HEMATOCRIT 36.2 % (42.0-52.0); HEMOGLOBIN 11.8 g/dl (13.5-17.5); LYMPH # 1.5 10^3/uL (1.5-5.0); LYMPH % 6.9 % (24.0-44.0); MEAN CORPUSCULAR HEMOGLOBIN 29.1 pg (27.0-33.0); MEAN CORPUSCULAR HGB CONC 32.6 g/dl (32.0-36.5); MEAN CORPUSCULAR VOLUME 89.2 fl (80.0-96.0); MONO % 8.6 % (2.0-8.0); NEUTROPHILS # 18.1 10^3/uL (1.5-8.5); NEUTROPHILS % 83.5 % (36.0-66.0); PLATELET COUNT, AUTOMATED 164 10^3/uL (150-450); RED BLOOD COUNT 4.06 10^6/uL (4.30-6.10); WHITE BLOOD COUNT 21.7 10^3/uL (4.0-10.0)
[2022-03-29 14:35] LABS: RSV AMPLIFICATION NEGATIVE (NEGATIVE)
[2022-03-29 14:35] LABS: ETHYL ALCOHOL (ETHANOL) 0.006 % (0.000-0.010)
[2022-03-29 14:36] LABS: BILIRUBIN,DIRECT 0.7 MG/DL (<0.4); BILIRUBIN,TOTAL 2.1 MG/DL (0.3-1.2); CALCIUM LEVEL 8.7 MG/DL (8.3-10.6); CREATININE FOR GFR 2.15 MG/DL (0.70-1.30); POTASSIUM SERUM 5.1 MMOL/L (3.5-5.1); TOTAL PROTEIN 6.4 G/DL (5.7-8.2)
[2022-03-29 14:38] LABS: MONO # 1.9 10^3/uL (0.0-0.8)
[2022-03-29] MEDS ORDERED: CIPROFLOXACIN 400 MG in IV 1 EA IV ONE (15:00)
[2022-03-29 15:24] LABS: AMPHETAMINES LEVEL URINE NEGATIVE (NEGATIVE); BARBITURATES URINE NEGATIVE (NEGATIVE); BENZODIAZEPINES URINE NEGATIVE (NEGATIVE); CANNABINOIDS URINE NEGATIVE (NEGATIVE); COCAINE METABOLITE URINE NEGATIVE (NEGATIVE); METHADONE URINE NEGATIVE (NEGATIVE); OPIATES URINE NEGATIVE (NEGATIVE); PHENCYCLIDINE URINE NEGATIVE (NEGATIVE)
[2022-03-29] MEDS ORDERED: HOME MED LIST COMPLETE! XX SCH (16:45)
[2022-03-29] MEDS ORDERED: DEXTROSE 50% 50ML SYRINGE IV PRN (17:05)
[2022-03-29] MEDS ORDERED: GLUCAGON INJ 1MG VIAL SC PRN (17:05)
[2022-03-29] MEDS ORDERED: GLUCOSE 4GM CHEW TABLET PO PRN (17:05)
[2022-03-29] MEDS ORDERED: ALBUTEROL 90 MCG/ACT 8GM HFA INHALER INH PRN (17:05)
[2022-03-29 17:13] LABS: THYROID STIMULATING HORMONE 1.973 uIU/ML (0.55-4.78)
[2022-03-29] MEDS: INSULIN LISPRO (NovoLOG) PER UNIT SC SCH ×2 (17:30→21:00)
[2022-03-29] MEDS: BICALUTAMIDE 50 MG TAB PO SCH (17:59)
[2022-03-29] MEDS: ASPIRIN 81MG ENTERIC TABLET PO SCH (18:00)
[2022-03-29] MEDS: OMEPRAZOLE 20MG CAP PO SCH (18:00)
[2022-03-29] MEDS: CitaloPRAM (CeleXA) 20 MG TAB PO SCH (18:00)
[2022-03-29] MEDS: METOPROLOL SUCC *XL* 25MG TAB (TopROL *XL*) PO SCH (18:00)
[2022-03-29] MEDS: VITAMIN D 1,000 INTERNATIONAL UNITS TABLET PO SCH (18:00)
[2022-03-29] MEDS ORDERED: ONDANSETRON 4MG 2ML VIAL IV PRN (18:15)
[2022-03-29] MEDS: LEVEMIR (INSULIN DETEMIR) 1 UNITS/0.01ML SC SCH (18:18)
[2022-03-29] MEDS: NS 1,000 ML IV SCH (18:22)
[2022-03-29] MEDS: GABAPENTIN 100 MG CAP PO SCH (21:33)
[2022-03-29] MEDS: ATORVASTATIN 20 MG TAB PO SCH (21:33)
[2022-03-29] MEDS: HEPARIN SOD (PORCINE) 5000UNITS/ML 1ML VIAL/SYRINGE SC SCH (21:34)
[2022-03-29 21:59] VITALS: BP_SYST 148; BP_SYST 149; BP_DIAS 51; BP_DIAS 52
[2022-03-30] VITALS (7 sets, daily range): BP systolic 136–166; BP diastolic 60–84
[2022-03-30 03:39] LABS: BASO % 0.3 % (0.0-1.0); HEMATOCRIT 33.3 % (42.0-52.0); HEMOGLOBIN 11.2 g/dl (13.5-17.5); LYMPH # 1.9 10^3/uL (1.5-5.0); MEAN CORPUSCULAR HEMOGLOBIN 29.7 pg (27.0-33.0); MEAN CORPUSCULAR HGB CONC 33.6 g/dl (32.0-36.5); MEAN CORPUSCULAR VOLUME 88.3 fl (80.0-96.0); MONO # 1.3 10^3/uL (0.0-0.8); MONO % 8.3 % (2.0-8.0); NEUTROPHILS # 12.4 10^3/uL (1.5-8.5); NEUTROPHILS % 78.8 % (36.0-66.0); PLATELET COUNT, AUTOMATED 169 10^3/uL (150-450); RED BLOOD COUNT 3.77 10^6/uL (4.30-6.10); WHITE BLOOD COUNT 15.8 10^3/uL (4.0-10.0)
[2022-03-30 04:11] LABS: ALBUMIN 2.6 G/DL (3.2-5.2); BILIRUBIN,DIRECT 0.5 MG/DL (<0.4); BILIRUBIN,TOTAL 1.6 MG/DL (0.3-1.2); CALCIUM LEVEL 8.3 MG/DL (8.3-10.6); CREATININE FOR GFR 2.13 MG/DL (0.70-1.30); GLOMERULAR FILTRATION RATE 32.3 (>42); POTASSIUM SERUM 4.6 MMOL/L (3.5-5.1); TOTAL PROTEIN 5.6 G/DL (5.7-8.2)
[2022-03-30] MEDS: NS 1,000 ML IV SCH ×2 (04:39→16:23)
[2022-03-30] MEDS ORDERED: LevoFLOXacin IV 500 MG in IV 1 EA IV SCH (06:00)
[2022-03-30] MEDS: HEPARIN SOD (PORCINE) 5000UNITS/ML 1ML VIAL/SYRINGE SC SCH ×3 (06:08→21:35)
[2022-03-30 07:14] LABS: MAGNESIUM LEVEL 1.7 MG/DL (1.8-2.4)
[2022-03-30] MEDS ORDERED: MAG SULF 1GM/100ML (MAG RUN) 1 GM in IV 1 EA IV ONE ×2 (07:40→08:05)
[2022-03-30] MEDS ORDERED: MAG SULF 1GM/100ML (MAG RUN) 1 GM in IV 1 EA IV SCH (08:00)
[2022-03-30] MEDS: LEVEMIR (INSULIN DETEMIR) 1 UNITS/0.01ML SC SCH (09:13)
[2022-03-30] MEDS: INSULIN LISPRO (NovoLOG) PER UNIT SC SCH ×4 (09:13→20:19)
[2022-03-30] MEDS: VITAMIN D 1,000 INTERNATIONAL UNITS TABLET PO SCH (09:14)
[2022-03-30] MEDS: GABAPENTIN 100 MG CAP PO SCH ×3 (09:14→20:19)
[2022-03-30] MEDS: ASPIRIN 81MG ENTERIC TABLET PO SCH (09:14)
[2022-03-30] MEDS: CitaloPRAM (CeleXA) 20 MG TAB PO SCH (09:14)
[2022-03-30] MEDS: BICALUTAMIDE 50 MG TAB PO SCH (09:14)
[2022-03-30] MEDS: OMEPRAZOLE 20MG CAP PO SCH (09:14)
[2022-03-30] MEDS: METOPROLOL SUCC *XL* 25MG TAB (TopROL *XL*) PO SCH ×2 (09:15→15:18)
[2022-03-30] MEDS: ATORVASTATIN 20 MG TAB PO SCH (20:19)
[2022-03-31 03:31] LABS: BASO % 0.4 % (0.0-1.0); EOS # 0.2 10^3/uL (0.0-0.5); EOS % 2.1 % (0.0-3.0); HEMATOCRIT 31.9 % (42.0-52.0); HEMOGLOBIN 10.7 g/dl (13.5-17.5); LYMPH # 2.3 10^3/uL (1.5-5.0); LYMPH % 20.8 % (24.0-44.0); MEAN CORPUSCULAR HEMOGLOBIN 29.6 pg (27.0-33.0); MEAN CORPUSCULAR HGB CONC 33.5 g/dl (32.0-36.5); MEAN CORPUSCULAR VOLUME 88.4 fl (80.0-96.0); MONO # 1.1 10^3/uL (0.0-0.8); MONO % 10.4 % (2.0-8.0); NEUTROPHILS # 7.2 10^3/uL (1.5-8.5); NEUTROPHILS % 65.8 % (36.0-66.0); PLATELET COUNT, AUTOMATED 172 10^3/uL (150-450); RED BLOOD COUNT 3.61 10^6/uL (4.30-6.10); WHITE BLOOD COUNT 10.9 10^3/uL (4.0-10.0)
[2022-03-31 04:03] VITALS: BP 151/68
[2022-03-31 04:17] LABS: CREATININE FOR GFR 1.9 MG/DL (0.70-1.30); GLOMERULAR FILTRATION RATE 36.9 (>42); MAGNESIUM LEVEL 1.8 MG/DL (1.8-2.4); POTASSIUM SERUM 4.3 MMOL/L (3.5-5.1)
[2022-03-31] MEDS: HEPARIN SOD (PORCINE) 5000UNITS/ML 1ML VIAL/SYRINGE SC SCH ×3 (05:15→21:08)
[2022-03-31] MEDS: NS 1,000 ML IV SCH (06:19)
[2022-03-31 07:28] VITALS: BP 154/70
[2022-03-31] MEDS: LEVEMIR (INSULIN DETEMIR) 1 UNITS/0.01ML SC SCH (08:45)
[2022-03-31] MEDS: INSULIN LISPRO (NovoLOG) PER UNIT SC SCH ×4 (08:45→20:07)
[2022-03-31] MEDS: OMEPRAZOLE 20MG CAP PO SCH (08:46)
[2022-03-31] MEDS: VITAMIN D 1,000 INTERNATIONAL UNITS TABLET PO SCH (08:46)
[2022-03-31] MEDS: CitaloPRAM (CeleXA) 20 MG TAB PO SCH (08:46)
[2022-03-31] MEDS: GABAPENTIN 100 MG CAP PO SCH ×3 (08:46→20:07)
[2022-03-31] MEDS: ASPIRIN 81MG ENTERIC TABLET PO SCH (08:46)
[2022-03-31] MEDS: BICALUTAMIDE 50 MG TAB PO SCH (08:47)
[2022-03-31] MEDS: METOPROLOL SUCC *XL* 25MG TAB (TopROL *XL*) PO SCH (08:47)
[2022-03-31 11:46] VITALS: BP 119/57
[2022-03-31 20:00] VITALS: BP 154/68
[2022-03-31] MEDS ORDERED: LevoFLOXacin 750 MG TABLET PO SCH (20:00)
[2022-03-31] MEDS: ATORVASTATIN 20 MG TAB PO SCH (20:07)
[2022-04-01] MEDS: HEPARIN SOD (PORCINE) 5000UNITS/ML 1ML VIAL/SYRINGE SC SCH ×3 (05:07→21:25)
[2022-04-01 05:29] LABS: BASO % 0.5 % (0.0-1.0); EOS # 0.3 10^3/uL (0.0-0.5); EOS % 3.9 % (0.0-3.0); HEMATOCRIT 32.2 % (42.0-52.0); HEMOGLOBIN 10.6 g/dl (13.5-17.5); LYMPH # 2.2 10^3/uL (1.5-5.0); LYMPH % 25.8 % (24.0-44.0); MEAN CORPUSCULAR HGB CONC 32.9 g/dl (32.0-36.5); MONO # 0.7 10^3/uL (0.0-0.8); MONO % 8.1 % (2.0-8.0); NEUTROPHILS # 5.3 10^3/uL (1.5-8.5); NEUTROPHILS % 61.2 % (36.0-66.0); PLATELET COUNT, AUTOMATED 188 10^3/uL (150-450); RED BLOOD COUNT 3.66 10^6/uL (4.30-6.10); WHITE BLOOD COUNT 8.6 10^3/uL (4.0-10.0)
[2022-04-01 05:46] LABS: CALCIUM LEVEL 8.2 MG/DL (8.3-10.6); CREATININE FOR GFR 1.78 MG/DL (0.70-1.30); GLOMERULAR FILTRATION RATE 39.8 (>42); MAGNESIUM LEVEL 1.6 MG/DL (1.8-2.4); POTASSIUM SERUM 4.7 MMOL/L (3.5-5.1)
[2022-04-01] MEDS ORDERED: MAG SULF 1GM/100ML (MAG RUN) 1 GM in IV 1 EA IV ONE (07:00)
[2022-04-01] MEDS: LEVEMIR (INSULIN DETEMIR) 1 UNITS/0.01ML SC SCH (09:19)
[2022-04-01] MEDS: ASPIRIN 81MG ENTERIC TABLET PO SCH (09:19)
[2022-04-01] MEDS: VITAMIN D 1,000 INTERNATIONAL UNITS TABLET PO SCH (09:19)
[2022-04-01] MEDS: INSULIN LISPRO (NovoLOG) PER UNIT SC SCH ×4 (09:19→21:00)
[2022-04-01] MEDS: BICALUTAMIDE 50 MG TAB PO SCH (09:19)
[2022-04-01] MEDS: GABAPENTIN 100 MG CAP PO SCH ×3 (09:20→21:25)
[2022-04-01] MEDS: CitaloPRAM (CeleXA) 20 MG TAB PO SCH (09:20)
[2022-04-01] MEDS: OMEPRAZOLE 20MG CAP PO SCH (09:20)
[2022-04-01] MEDS: METOPROLOL SUCC *XL* 25MG TAB (TopROL *XL*) PO SCH (09:23)
[2022-04-01 15:00] VITALS: BP 158/65
[2022-04-01] MEDS: ATORVASTATIN 20 MG TAB PO SCH (21:24)
[2022-04-01 21:30] VITALS: BP 152/61
[2022-04-02] MEDS: HEPARIN SOD (PORCINE) 5000UNITS/ML 1ML VIAL/SYRINGE SC SCH (05:44)
[2022-04-02 06:00] VITALS: BP 166/66
[2022-04-02] MEDS: VITAMIN D 1,000 INTERNATIONAL UNITS TABLET PO SCH (08:19)
[2022-04-02] MEDS: ASPIRIN 81MG ENTERIC TABLET PO SCH (08:19)
[2022-04-02] MEDS: OMEPRAZOLE 20MG CAP PO SCH (08:20)
[2022-04-02] MEDS: GABAPENTIN 100 MG CAP PO SCH (08:23)
[2022-04-02] MEDS: CitaloPRAM (CeleXA) 20 MG TAB PO SCH (08:24)
[2022-04-02] MEDS: BICALUTAMIDE 50 MG TAB PO SCH (08:24)
[2022-04-02] MEDS: INSULIN LISPRO (NovoLOG) PER UNIT SC SCH ×2 (08:25→12:15)
[2022-04-02] MEDS: LEVEMIR (INSULIN DETEMIR) 1 UNITS/0.01ML SC SCH (08:26)
[2022-04-02] MEDS: METOPROLOL SUCC *XL* 25MG TAB (TopROL *XL*) PO SCH (08:34)
[2022-04-02 08:52] VITALS: BP 144/56
[2022-04-02] MEDS ORDERED: LEVO1TAB40 PO (13:27)
[2022-04-02] MEDS ORDERED: LANTINJ4 SC (13:27)
[2022-04-02] MEDS ORDERED: MAGN400T2 PO (13:28)
== END 2022-04-02 16:40 | disposition home health service (06) | DRG 698 ==
LOC: M ED 12:45 → EDBD 12:45 → M ED INP 16:13 → M PCU 21:56 → M MS5PR 04-01 14:54
PROVIDERS: ADMIT Internal Medicine; ATTEND Internal Medicine
DX: T83.511A Infection and inflammatory reaction due to indwelling urethral catheter, initial encounter (principal); G93.41 Metabolic encephalopathy; C79.51 Secondary malignant neoplasm of bone; I50.32 Chronic diastolic (congestive) heart failure; N18.4 Chronic kidney disease, stage 4 (severe); I13.0 Hypertensive heart and chronic kidney disease with heart failure and stage 1 through stage 4 chronic kidney disease, or unspecified chronic kidney disease; E87.1 Hypo-osmolality and hyponatremia; Z66 Do not resuscitate; E86.0 Dehydration; N30.90 Cystitis, unspecified without hematuria; F03.90 Unspecified dementia, unspecified severity, without behavioral disturbance, psychotic disturbance, mood disturbance, and anxiety; E83.42 Hypomagnesemia; C61 Malignant neoplasm of prostate; I25.10 Atherosclerotic heart disease of native coronary artery without angina pectoris; I25.2 Old myocardial infarction; Z95.5 Presence of coronary angioplasty implant and graft; J44.9 Chronic obstructive pulmonary disease, unspecified; I48.0 Paroxysmal atrial fibrillation; I27.20 Pulmonary hypertension, unspecified; B95.2 Enterococcus as the cause of diseases classified elsewhere; E11.22 Type 2 diabetes mellitus with diabetic chronic kidney disease; E11.42 Type 2 diabetes mellitus with diabetic polyneuropathy; K21.9 Gastro-esophageal reflux disease without esophagitis; E55.9 Vitamin D deficiency, unspecified; Z90.49 Acquired absence of other specified parts of digestive tract; Z87.891 Personal history of nicotine dependence; Z79.82 Long term (current) use of aspirin; Z79.4 Long term (current) use of insulin; Z79.899 Other long term (current) drug therapy; Z88.0 Allergy status to penicillin; Z88.1 Allergy status to other antibiotic agents; Z20.822 Contact with and (suspected) exposure to COVID-19

== ENCOUNTER → 2022-04-17 | Outpatient (CLI) | payer MEDICARE ==
[~2022-04-17] MED LIST changes: +INSU100I6 SC; -LEVE1INJ5 SC; +LEVO1TAB40 PO; +MAGN400T2 PO
[2022-04-17 17:12] LABS: BASO # 0.1 10^3/uL (0.0-0.2); BASO % 0.5 % (0.0-1.0); EOS # 0.3 10^3/uL (0.0-0.5); EOS % 3.5 % (0.0-3.0); HEMATOCRIT 38.2 % (42.0-52.0); HEMOGLOBIN 12.6 g/dl (13.5-17.5); LYMPH # 2.4 10^3/uL (1.5-5.0); LYMPH % 24.7 % (24.0-44.0); MEAN CORPUSCULAR HEMOGLOBIN 29.4 pg (27.0-33.0); MONO # 0.7 10^3/uL (0.0-0.8); MONO % 7.2 % (2.0-8.0); NEUTROPHILS # 6.2 10^3/uL (1.5-8.5); NEUTROPHILS % 63.8 % (36.0-66.0); PLATELET COUNT, AUTOMATED 291 10^3/uL (150-450); RED BLOOD COUNT 4.29 10^6/uL (4.30-6.10); WHITE BLOOD COUNT 9.6 10^3/uL (4.0-10.0)
[2022-04-17 17:34] LABS: CALCIUM LEVEL 9.4 MG/DL (8.3-10.6); CREATININE FOR GFR 2.06 MG/DL (0.70-1.30); GLOMERULAR FILTRATION RATE 33.6 (>42); POTASSIUM SERUM 5.6 MMOL/L (3.5-5.1)
== END ==
LOC: M PLALAB 15:23
PROVIDERS: ATTEND Physician Assistant Medical
DX: N18.4 Chronic kidney disease, stage 4 (severe) (principal); N39.0 Urinary tract infection, site not specified

== ENCOUNTER → 2022-07-05 | Outpatient (CLI) | payer MEDICARE ==
[~2022-07-05] MED LIST changes: +INSU100I38 SQ; -KETO0.5S15 OS; +KETO0.5S4 OS; +NORV5TAB PO
[2022-07-05 17:13] LABS: HEMATOCRIT 37.1 % (42.0-52.0); HEMOGLOBIN 12.2 g/dl (13.5-17.5); MEAN CORPUSCULAR HEMOGLOBIN 29.3 pg (27.0-33.0); MEAN CORPUSCULAR HGB CONC 32.9 g/dl (32.0-36.5); MEAN CORPUSCULAR VOLUME 89.2 fl (80.0-96.0); PLATELET COUNT, AUTOMATED 222 10^3/uL (150-450); RED BLOOD COUNT 4.16 10^6/uL (4.30-6.10); WHITE BLOOD COUNT 9.7 10^3/uL (4.0-10.0)
[2022-07-05 17:35] LABS: APPEARANCE, URINE CLOUDY (CLEAR); BACTERIA, URINE AUTO 2+ (NEGATIVE); BILIRUBIN, URINE AUTO NEGATIVE (NEGATIVE); BLOOD, URINE BLOOD 2+ (NEGATIVE); COLOR, URINE YELLOW (YELLOW); GLUCOSE, URINE (UA) AUTO 3+ mg/dL (NEGATIVE); KETONE, URINE AUTO NEGATIVE (NEGATIVE); LEUKOCYTE ESTERASE, URINE AUTO 3+ (NEGATIVE); NITRITE, URINE AUTO NEGATIVE (NEGATIVE); PROTEIN, URINE AUTO 2+ mg/dL (NEGATIVE); RBC, URINE AUTO 23 /HPF (0-3); SPECIFIC GRAVITY URINE AUTO 1.013 (1.002-1.035); SQUAMOUS EPITHELIAL CELL UR AU 0 /HPF (0-6); UROBILINOGEN, URINE AUTO 0.2 mg/dL (0.0-2.0); WBC, URINE AUTO TNTC /HPF (0-3)
[2022-07-05 17:43] LABS: CALCIUM LEVEL 8.7 MG/DL (8.3-10.6); CREATININE FOR GFR 2.2 MG/DL (0.70-1.30); GLOMERULAR FILTRATION RATE 31.1 (>42); POTASSIUM SERUM 5.3 MMOL/L (3.5-5.1)
== END ==
LOC: M PLAIMG 15:44
PROVIDERS: ATTEND Physician Assistant
DX: Z01.818 Encounter for other preprocedural examination (principal)

== ENCOUNTER → 2022-07-10 | Outpatient (REF) | payer MEDICARE | LOC: M SFHCPLAZ 11:14 | PROVIDERS: ATTEND Physician Assistant Medical | DX: Z00.00 Encounter for general adult medical examination without abnormal findings (principal); N18.32 Chronic kidney disease, stage 3b ==

== ENCOUNTER → 2022-07-11 | Outpatient (REF) | payer MEDICARE ==
[~2022-07-11] MED LIST changes: +[UNRECOGNIZED DRUG - CODE] PO
== END ==
LOC: M SMT 17:12
PROVIDERS: ATTEND Urology
DX: N39.0 Urinary tract infection, site not specified (principal)

== ENCOUNTER 2022-07-19 07:37 | Day surgery (SDC) | payer MEDICARE ==
[~2022-07-19] VITALS: Ht 167.6 cm; Wt 68.9 kg
[2022-07-19] MEDS ORDERED: MIDAZOLAM INJ 2MG/2ML VIAL As Ordered ONE (08:43)
[2022-07-19] MEDS ORDERED: propofoL 200 MG/20 ML VIAL As Ordered ONE (08:43)
[2022-07-19] MEDS ORDERED: LIDOCAINE 2% 100MG/5ML SDV (FOR ANES.) As Ordered ONE (08:43)
[2022-07-19] MEDS ORDERED: fentaNYL 100 MCG/2 ML INJECTION As Ordered ONE (08:44)
[2022-07-19] MEDS ORDERED: LR 1,000 ML IV SCH ×2 (08:45→11:45)
[2022-07-19] MEDS ORDERED: INSULIN LISPRO (NovoLOG) PER UNIT SC PRN (08:45)
[2022-07-19] MEDS ORDERED: ceFAZolin SOD 2 GM in IV 1 EA IV ONE (09:05)
[2022-07-19] MEDS ORDERED: CIPR-250 PO (10:53)
[2022-07-19] MEDS ORDERED: ISOVUE-300 61% 100ML VIAL As Ordered ONE (10:56)
[2022-07-19] MEDS ORDERED: LevoFLOXacin IV 500 MG in IV 1 EA IV ONE (11:05)
[2022-07-19] MEDS ORDERED: LIDOCAINE 2% 5ML JELLY UROJET As Ordered ONE (11:23)
[2022-07-19] MEDS ORDERED: ONDANSETRON 4MG 2ML VIAL IV PRN (11:45)
[2022-07-19] MEDS ORDERED: fentaNYL 100 MCG/2 ML INJECTION IV PRN (11:45)
[2022-07-19] MEDS ORDERED: METOCLOPRAMIDE INJ 10MG/2ML VIAL IV PRN (11:45)
[2022-07-19] MEDS ORDERED: oxyCODONE 5MG TAB PO PRN (11:45)
[2022-07-19 13:10] VITALS: BP 136/68
== END 2022-07-19 13:00 | disposition home or self-care (01) ==
LOC: M SDC 07:37
PROVIDERS: ATTEND Urology
DX: N13.1 Hydronephrosis with ureteral stricture, not elsewhere classified (principal); C61 Malignant neoplasm of prostate; I10 Essential (primary) hypertension; I25.2 Old myocardial infarction; I48.91 Unspecified atrial fibrillation; I25.10 Atherosclerotic heart disease of native coronary artery without angina pectoris; Z95.1 Presence of aortocoronary bypass graft; K21.9 Gastro-esophageal reflux disease without esophagitis; E78.5 Hyperlipidemia, unspecified; E11.40 Type 2 diabetes mellitus with diabetic neuropathy, unspecified; J44.9 Chronic obstructive pulmonary disease, unspecified; Z92.21 Personal history of antineoplastic chemotherapy; Z79.899 Other long term (current) drug therapy; Z79.82 Long term (current) use of aspirin; Z79.4 Long term (current) use of insulin; Z79.51 Long term (current) use of inhaled steroids; F32.9 Major depressive disorder, single episode, unspecified; Z88.0 Allergy status to penicillin; Z88.1 Allergy status to other antibiotic agents
CPT/HCPCS: 36415; 52332; 74420; 84132; C1769; C2617; J2250; J3010; Q9967

== ENCOUNTER → 2022-08-07 | Outpatient (CLI) | payer MEDICARE ==
[~2022-08-07] MED LIST changes: +CIPR-250 PO; -K-TA10TA2 PO; +POTA-165 PO
[2022-08-07 14:29] LABS: BASO # 0.1 10^3/uL (0.0-0.2); BASO % 0.5 % (0.0-1.0); EOS # 0.6 10^3/uL (0.0-0.5); HEMATOCRIT 39.2 % (42.0-52.0); HEMOGLOBIN 12.7 g/dl (13.5-17.5); LYMPH # 2.9 10^3/uL (1.5-5.0); LYMPH % 26.1 % (24.0-44.0); MEAN CORPUSCULAR HEMOGLOBIN 28.3 pg (27.0-33.0); MEAN CORPUSCULAR HGB CONC 32.4 g/dl (32.0-36.5); MEAN CORPUSCULAR VOLUME 87.5 fl (80.0-96.0); MONO # 0.8 10^3/uL (0.0-0.8); MONO % 7.1 % (2.0-8.0); NEUTROPHILS # 6.8 10^3/uL (1.5-8.5); PLATELET COUNT, AUTOMATED 257 10^3/uL (150-450); RED BLOOD COUNT 4.48 10^6/uL (4.30-6.10); WHITE BLOOD COUNT 11.2 10^3/uL (4.0-10.0)
[2022-08-07 14:53] LABS: ALBUMIN 3.7 G/DL (3.2-5.2); BILIRUBIN,TOTAL 1.4 MG/DL (0.3-1.2); CALCIUM LEVEL 9.3 MG/DL (8.3-10.6); CHOLESTEROL RISK RATIO 4.01 (<5); CREATININE FOR GFR 2.11 MG/DL (0.70-1.30); GLOMERULAR FILTRATION RATE 32.7 (>42); HDL CHOLESTEROL 30.4 MG/DL (>40); LDL CHOLESTEROL 55.2 MG/DL (<100); NON-HDL-C 91.6 MG/DL
== END ==
LOC: M PLALAB 11:41
PROVIDERS: ATTEND Physician Assistant Medical
DX: E11.65 Type 2 diabetes mellitus with hyperglycemia (principal); E87.5 Hyperkalemia; N39.0 Urinary tract infection, site not specified; I11.9 Hypertensive heart disease without heart failure; E78.00 Pure hypercholesterolemia, unspecified

== ENCOUNTER → 2022-10-25 | Outpatient (REF) | payer MEDICARE ==
[~2022-10-25] MED LIST changes: +PRED5TA PO; +XTAN40CA PO; +ZYTI250T PO
[2022-10-25 18:51] LABS: BASO # 0.1 10^3/uL (0.0-0.2); BASO % 0.4 % (0.0-1.0); EOS # 0.3 10^3/uL (0.0-0.5); EOS % 1.9 % (0.0-3.0); HEMATOCRIT 37.8 % (42.0-52.0); LYMPH # 3.4 10^3/uL (1.5-5.0); LYMPH % 21.3 % (24.0-44.0); MEAN CORPUSCULAR HEMOGLOBIN 28.5 pg (27.0-33.0); MEAN CORPUSCULAR HGB CONC 31.7 g/dl (32.0-36.5); MEAN CORPUSCULAR VOLUME 89.8 fl (80.0-96.0); MONO # 0.9 10^3/uL (0.0-0.8); MONO % 5.6 % (2.0-8.0); NEUTROPHILS # 11.2 10^3/uL (1.5-8.5); NEUTROPHILS % 69.7 % (36.0-66.0); PLATELET COUNT, AUTOMATED 329 10^3/uL (150-450); RED BLOOD COUNT 4.21 10^6/uL (4.30-6.10)
[2022-10-25 18:59] LABS: HEMOGLOBIN A1c 9.3 % (4.0-6.0)
[2022-10-25 19:06] LABS: ALBUMIN 3.2 G/DL (3.2-5.2); BILIRUBIN,TOTAL 1.2 MG/DL (0.3-1.2); CALCIUM LEVEL 9.3 MG/DL (8.3-10.6); CREATININE FOR GFR 1.9 MG/DL (0.70-1.30); GLOMERULAR FILTRATION RATE 36.9 (>42); MAGNESIUM LEVEL 1.6 MG/DL (1.8-2.4); TOTAL PROTEIN 6.6 G/DL (5.7-8.2)
[2022-10-25 19:09] LABS: FERRITIN 115.4 NG/ML (10.5-307.3)
== END ==
LOC: M SFHCPLAZ 17:24
PROVIDERS: ATTEND Physician Assistant Medical
DX: E87.6 Hypokalemia (principal); E83.51 Hypocalcemia; E77.8 Other disorders of glycoprotein metabolism; D63.8 Anemia in other chronic diseases classified elsewhere; I10 Essential (primary) hypertension; I25.810 Atherosclerosis of coronary artery bypass graft(s) without angina pectoris; E83.42 Hypomagnesemia; E11.65 Type 2 diabetes mellitus with hyperglycemia

== ENCOUNTER → 2022-12-21 | Outpatient (CLI) | payer MEDICARE ==
[~2022-12-21] MED LIST changes: +GLIP5TAB17 PO; -GLIP5TAB8 PO
[2022-12-21 13:51] LABS: BASO # 0.1 10^3/uL (0.0-0.2); BASO % 0.5 % (0.0-1.0); EOS # 0.5 10^3/uL (0.0-0.5); EOS % 4.2 % (0.0-3.0); HEMATOCRIT 41.3 % (42.0-52.0); HEMOGLOBIN 13.7 g/dl (13.5-17.5); LYMPH # 3.2 10^3/uL (1.5-5.0); LYMPH % 24.2 % (24.0-44.0); MEAN CORPUSCULAR HEMOGLOBIN 29.2 pg (27.0-33.0); MEAN CORPUSCULAR HGB CONC 33.2 g/dl (32.0-36.5); MEAN CORPUSCULAR VOLUME 88.1 fl (80.0-96.0); MONO % 7.7 % (2.0-8.0); NEUTROPHILS # 8.2 10^3/uL (1.5-8.5); PLATELET COUNT, AUTOMATED 298 10^3/uL (150-450); RED BLOOD COUNT 4.69 10^6/uL (4.30-6.10)
[2022-12-21 14:18] LABS: ALBUMIN 3.2 G/DL (3.2-5.2); BILIRUBIN,TOTAL 1.8 MG/DL (0.3-1.2); CALCIUM LEVEL 9.5 MG/DL (8.3-10.6); CREATININE FOR GFR 1.95 MG/DL (0.70-1.30); GLOMERULAR FILTRATION RATE 35.7 (>42); MAGNESIUM LEVEL 1.9 MG/DL (1.8-2.4); POTASSIUM SERUM 5.1 MMOL/L (3.5-5.1); TOTAL PROTEIN 6.6 G/DL (5.7-8.2)
== END ==
LOC: M PLALAB 11:22
PROVIDERS: ATTEND Physician Assistant Medical
DX: N39.0 Urinary tract infection, site not specified (principal); E87.6 Hypokalemia; E83.51 Hypocalcemia; E11.65 Type 2 diabetes mellitus with hyperglycemia; E83.42 Hypomagnesemia

== ENCOUNTER → 2023-03-29 | Outpatient (CLI) | payer MEDICARE ==
[~2023-03-29] MED LIST changes: +med rec comment
[2023-03-29 13:54] LABS: BASO % 0.5 % (0.0-1.0); EOS # 0.2 10^3/uL (0.0-0.5); EOS % 2.9 % (0.0-3.0); HEMATOCRIT 39.5 % (42.0-52.0); HEMOGLOBIN 13.4 g/dl (13.5-17.5); LYMPH # 1.9 10^3/uL (1.5-5.0); LYMPH % 22.8 % (24.0-44.0); MEAN CORPUSCULAR HEMOGLOBIN 29.2 pg (27.0-33.0); MEAN CORPUSCULAR HGB CONC 33.9 g/dl (32.0-36.5); MEAN CORPUSCULAR VOLUME 86.1 fl (80.0-96.0); MONO # 0.5 10^3/uL (0.0-0.8); MONO % 5.6 % (2.0-8.0); NEUTROPHILS # 5.7 10^3/uL (1.5-8.5); PLATELET COUNT, AUTOMATED 298 10^3/uL (150-450); RED BLOOD COUNT 4.59 10^6/uL (4.30-6.10); WHITE BLOOD COUNT 8.4 10^3/uL (4.0-10.0)
[2023-03-29 13:56] LABS: PSA SCREENING 2.01 NG/ML (< 4.00)
[2023-03-29 13:59] LABS: FREE T4 1.23 NG/DL (0.89-1.76)
[2023-03-29 14:00] LABS: FERRITIN 247.8 NG/ML (10.5-307.3); THYROID STIMULATING HORMONE 1.937 uIU/ML (0.55-4.78)
[2023-03-29 14:06] LABS: CHOLESTEROL RISK RATIO 6.71 (<5); LDL CHOLESTEROL 90.6 MG/DL (<100)
== END ==
LOC: M PLALAB 11:04
PROVIDERS: ATTEND Physician Assistant Medical
DX: E11.65 Type 2 diabetes mellitus with hyperglycemia (principal); D63.8 Anemia in other chronic diseases classified elsewhere; C61 Malignant neoplasm of prostate; E78.00 Pure hypercholesterolemia, unspecified; F32.9 Major depressive disorder, single episode, unspecified; Z12.5 Encounter for screening for malignant neoplasm of prostate

== ENCOUNTER 2023-04-02 13:26 | Inpatient (IN) | payer MEDICARE ==
[~2023-04-02] VITALS: Ht 162.6 cm; Wt 56.8 kg
[~2023-04-02 13:26] MED LIST changes: -med rec comment
[2023-04-02 15:02] LABS: BASO % 0.2 % (0.0-1.0); EOS % 0.1 % (0.0-3.0); HEMATOCRIT 36.4 % (42.0-52.0); HEMOGLOBIN 12.6 g/dl (13.5-17.5); LYMPH # 1.4 10^3/uL (1.5-5.0); LYMPH % 13.3 % (24.0-44.0); MEAN CORPUSCULAR HEMOGLOBIN 28.8 pg (27.0-33.0); MEAN CORPUSCULAR HGB CONC 34.6 g/dl (32.0-36.5); MEAN CORPUSCULAR VOLUME 83.3 fl (80.0-96.0); MONO # 0.6 10^3/uL (0.0-0.8); MONO % 5.7 % (2.0-8.0); NEUTROPHILS # 8.7 10^3/uL (1.5-8.5); NEUTROPHILS % 80.5 % (36.0-66.0); PLATELET COUNT, AUTOMATED 332 10^3/uL (150-450); RED BLOOD COUNT 4.37 10^6/uL (4.30-6.10); WHITE BLOOD COUNT 10.8 10^3/uL (4.0-10.0)
[2023-04-02 15:15] LABS: CK-MB VALUE MASS 1.2 NG/ML (<3.6)
[2023-04-02 15:17] LABS: ALBUMIN 3.1 G/DL (3.2-5.2); BILIRUBIN,DIRECT 0.8 MG/DL (<0.4); BILIRUBIN,TOTAL 2.3 MG/DL (0.3-1.2); CREATININE FOR GFR 1.75 MG/DL (0.70-1.30); GLOMERULAR FILTRATION RATE 40.4 (>42); POTASSIUM SERUM 4.1 MMOL/L (3.5-5.1); TOTAL PROTEIN 6.5 G/DL (5.7-8.2)
[2023-04-02 15:20] LABS: MB/CK RELATIVE INDEX 2.79 (< OR =4)
[2023-04-02] MEDS: ONDANSETRON 4MG 2ML VIAL IV ONE (15:32)
[2023-04-02] MEDS: NS 1,690 ML in IV 1 EA IV ONE (15:32)
[2023-04-02] MEDS: cefTRIAXone SOD 2 GM in D5W MINI-BAG PLUS 50 ML IV ONE (16:14)
[2023-04-02] MEDS ORDERED: GLUCAGON INJ 1MG VIAL SC PRN (17:05)
[2023-04-02] MEDS ORDERED: DEXTROSE 50% 50ML SYRINGE IV PRN (17:05)
[2023-04-02] MEDS ORDERED: MAALOX 30 ML SUSP *UDC PO PRN (17:05)
[2023-04-02] MEDS ORDERED: HEPARIN SOD (PORCINE) 5000UNITS/ML 1ML VIAL/SYRINGE SC SCH (17:05)
[2023-04-02] MEDS ORDERED: MOM 30ML SUSPENSION UDC PO PRN (17:05)
[2023-04-02] MEDS ORDERED: GLUCOSE 4GM CHEW TABLET PO PRN (17:05)
[2023-04-02 17:45] LABS: PROCALCITONIN 0.13 ng/ml
[2023-04-02] MEDS ORDERED: AMLO1TAB24 PO (18:14)
[2023-04-02] MEDS: INSULIN LISPRO (NovoLOG) PER UNIT SC SCH ×2 (18:19→22:20)
[2023-04-02] MEDS: NS 1,000 ML IV SCH ×2 (18:22→21:00)
[2023-04-02 18:25] LABS: CK-MB VALUE MASS 1.7 NG/ML (<3.6)
[2023-04-02 18:27] LABS: MB/CK RELATIVE INDEX 2.5 (< OR =4)
[2023-04-02] MEDS ORDERED: MAGN400T2 PO (18:44)
[2023-04-02] MEDS ORDERED: med rec comment (18:48)
[2023-04-02] MEDS ORDERED: HOME MED LIST COMPLETE! XX SCH (18:50)
[2023-04-02 19:04] LABS: HEMOGLOBIN A1c 9.2 % (4.0-6.0)
[2023-04-02] MEDS ORDERED: ALBUTEROL 90 MCG/ACT 8GM HFA INHALER INH PRN (19:10)
[2023-04-02 21:55] VITALS: BP 210/52; TEMP 98; O2SAT 99
[2023-04-02] MEDS: LABETALOL 100MG/20ML VIAL IV PRN (22:01)
[2023-04-02] MEDS: ONDANSETRON 4MG ORAL DISINTEGRATING TAB PO PRN (22:12)
[2023-04-02] MEDS: DOCUSATE SODIUM 100MG CAPSULE PO SCH (23:14)
[2023-04-02] MEDS: FAMOTIDINE 20 MG TAB PO SCH (23:19)
[2023-04-02] MEDS: GABAPENTIN 100 MG CAP PO SCH (23:19)
[2023-04-02] MEDS: LEVEMIR (INSULIN DETEMIR) 1 UNITS/0.01ML SC SCH (23:20)
[2023-04-02] MEDS: ATORVASTATIN 20 MG TAB PO SCH (23:20)
[2023-04-02 23:58] VITALS: BP 190/82; TEMP 98.1; O2SAT 99
[2023-04-03 03:58] VITALS: BP 170/84; TEMP 97.8; O2SAT 97
[2023-04-03] MEDS: HEPARIN SOD (PORCINE) 5000UNITS/ML 1ML VIAL/SYRINGE SC SCH (06:00)
[2023-04-03 07:11] LABS: BASO # 0.1 10^3/uL (0.0-0.2); BASO % 0.6 % (0.0-1.0); EOS # 0.2 10^3/uL (0.0-0.5); EOS % 1.5 % (0.0-3.0); HEMATOCRIT 35.6 % (42.0-52.0); HEMOGLOBIN 11.9 g/dl (13.5-17.5); LYMPH # 2.6 10^3/uL (1.5-5.0); LYMPH % 22.8 % (24.0-44.0); MEAN CORPUSCULAR HEMOGLOBIN 28.7 pg (27.0-33.0); MEAN CORPUSCULAR HGB CONC 33.4 g/dl (32.0-36.5); MEAN CORPUSCULAR VOLUME 85.8 fl (80.0-96.0); MONO # 0.9 10^3/uL (0.0-0.8); MONO % 7.6 % (2.0-8.0); NEUTROPHILS # 7.7 10^3/uL (1.5-8.5); NEUTROPHILS % 67.2 % (36.0-66.0); PLATELET COUNT, AUTOMATED 346 10^3/uL (150-450); RED BLOOD COUNT 4.15 10^6/uL (4.30-6.10); WHITE BLOOD COUNT 11.5 10^3/uL (4.0-10.0)
[2023-04-03 07:46] LABS: ALBUMIN 2.7 G/DL (3.2-5.2); BILIRUBIN,TOTAL 1.4 MG/DL (0.3-1.2); CALCIUM LEVEL 8.3 MG/DL (8.3-10.6); CREATININE FOR GFR 1.75 MG/DL (0.70-1.30); GLOMERULAR FILTRATION RATE 40.4 (>42); MAGNESIUM LEVEL 1.6 MG/DL (1.8-2.4); POTASSIUM SERUM 2.7 MMOL/L (3.5-5.1); TOTAL PROTEIN 5.8 G/DL (5.7-8.2)
[2023-04-03 07:49] VITALS: BP 150/62; TEMP 96.7; O2SAT 96
[2023-04-03] MEDS ORDERED: MAG SULF 1GM/100ML (MAG RUN) 1 GM in IV 1 EA IV SCH (08:55)
[2023-04-03] MEDS: ASPIRIN 81MG ENTERIC TABLET PO SCH (09:50)
[2023-04-03] MEDS: CitaloPRAM (CeleXA) 20 MG TAB PO SCH (09:50)
[2023-04-03] MEDS: amLODIPine 5 MG TAB PO SCH (09:51)
[2023-04-03] MEDS: VITAMIN D 1,000 INTERNATIONAL UNITS TABLET PO SCH (09:51)
[2023-04-03] MEDS: POTASSIUM CHLORIDE 10MEQ SR TABLET PO ONE ×2 (09:51→14:47)
[2023-04-03] MEDS: MAGNESIUM OXIDE 400MG TAB (MAG-OX) PO SCH (09:51)
[2023-04-03] MEDS: MAG SULF 1GM/100ML (MAG RUN) 1 GM in IV 1 EA IV SCH (09:52)
[2023-04-03] MEDS: METOPROLOL SUCC *XL* 25MG TAB (TopROL *XL*) PO SCH (09:52)
[2023-04-03] MEDS: BICALUTAMIDE 50 MG TAB PO SCH (11:31)
[2023-04-03 11:46] VITALS: BP 144/70; TEMP 97.3; O2SAT 98
[2023-04-03] MEDS: LEVEMIR (INSULIN DETEMIR) 1 UNITS/0.01ML SC SCH (14:48)
[2023-04-03 15:24] VITALS: BP 141/64; TEMP 97; O2SAT 99
[2023-04-03] MEDS: cefTRIAXone SOD 1 GM in D5W MINI-BAG PLUS 50 ML IV SCH (16:57)
[2023-04-03 19:53] LABS: CALCIUM LEVEL 8.4 MG/DL (8.3-10.6); CREATININE FOR GFR 1.61 MG/DL (0.70-1.30); GLOMERULAR FILTRATION RATE 44.5 (>42); MAGNESIUM LEVEL 2.3 MG/DL (1.8-2.4); POTASSIUM SERUM 3.9 MMOL/L (3.5-5.1)
[2023-04-03 20:30] VITALS: BP 164/74; TEMP 97.2; O2SAT 97
[2023-04-03] MEDS: ACETAMINOPHEN TAB 650MG DOSE (2X325MG) PO PRN (20:55)
[2023-04-03 23:18] VITALS: BP 142/65; TEMP 97.9; O2SAT 96
[2023-04-04] MEDS: D5W/0.9% SODIUM CHLORIDE 1,000 ML IV SCH (02:43)
[2023-04-04 04:15] VITALS: BP 154/71; TEMP 96.7; O2SAT 97
[2023-04-04 05:44] LABS: BASO # 0.1 10^3/uL (0.0-0.2); BASO % 0.5 % (0.0-1.0); EOS # 0.2 10^3/uL (0.0-0.5); EOS % 2.1 % (0.0-3.0); HEMATOCRIT 33.7 % (42.0-52.0); HEMOGLOBIN 11.1 g/dl (13.5-17.5); LYMPH # 2.4 10^3/uL (1.5-5.0); MEAN CORPUSCULAR HEMOGLOBIN 28.5 pg (27.0-33.0); MEAN CORPUSCULAR HGB CONC 32.9 g/dl (32.0-36.5); MEAN CORPUSCULAR VOLUME 86.4 fl (80.0-96.0); MONO # 0.7 10^3/uL (0.0-0.8); MONO % 6.2 % (2.0-8.0); NEUTROPHILS # 7.1 10^3/uL (1.5-8.5); NEUTROPHILS % 67.9 % (36.0-66.0); PLATELET COUNT, AUTOMATED 266 10^3/uL (150-450); WHITE BLOOD COUNT 10.5 10^3/uL (4.0-10.0)
[2023-04-04 06:06] LABS: ALBUMIN 2.5 G/DL (3.2-5.2); BILIRUBIN,TOTAL 0.9 MG/DL (0.3-1.2); CALCIUM LEVEL 7.9 MG/DL (8.3-10.6); CREATININE FOR GFR 1.52 MG/DL (0.70-1.30); GLOMERULAR FILTRATION RATE 47.6 (>42); MAGNESIUM LEVEL 1.8 MG/DL (1.8-2.4); TOTAL PROTEIN 5.4 G/DL (5.7-8.2)
[2023-04-04 08:10] VITALS: BP 165/70; TEMP 97.9; O2SAT 97
[2023-04-04] MEDS: OLANZapine INTRAMUSCULAR 10MG VIAL IM ONE (08:39)
[2023-04-04 10:00] VITALS: BP 172/72; TEMP 98; O2SAT 97
[2023-04-04 12:00] VITALS: BP 172/72; TEMP 98; O2SAT 97
[2023-04-04 16:13] VITALS: BP 160/71; TEMP 98.3; O2SAT 97
[2023-04-04] MEDS: **hydrALAZINE HCL** 25 MG TAB PO SCH (16:18)
[2023-04-04] MEDS: OLANZapine INTRAMUSCULAR 10MG VIAL IM PRN (16:18)
[2023-04-04] MEDS: HALOPERIDOL 5MG/ML 1ML VIAL IM STA (16:48)
[2023-04-04 20:18] VITALS: BP 168/70; TEMP 97.8; O2SAT 96
[2023-04-04] MEDS: QUEtiapine FUMARATE 25 MG TAB PO SCH (20:38)
[2023-04-05 04:00] VITALS: BP 152/70; TEMP 97.9; O2SAT 98
[2023-04-05 06:07] LABS: BASO # 0.1 10^3/uL (0.0-0.2); BASO % 0.7 % (0.0-1.0); EOS # 0.4 10^3/uL (0.0-0.5); EOS % 4.9 % (0.0-3.0); HEMATOCRIT 35.6 % (42.0-52.0); HEMOGLOBIN 11.8 g/dl (13.5-17.5); LYMPH % 26.8 % (24.0-44.0); MEAN CORPUSCULAR HEMOGLOBIN 28.6 pg (27.0-33.0); MEAN CORPUSCULAR HGB CONC 33.1 g/dl (32.0-36.5); MEAN CORPUSCULAR VOLUME 86.2 fl (80.0-96.0); MONO # 0.5 10^3/uL (0.0-0.8); MONO % 6.6 % (2.0-8.0); NEUTROPHILS # 4.4 10^3/uL (1.5-8.5); NEUTROPHILS % 60.7 % (36.0-66.0); PLATELET COUNT, AUTOMATED 249 10^3/uL (150-450); RED BLOOD COUNT 4.13 10^6/uL (4.30-6.10); WHITE BLOOD COUNT 7.3 10^3/uL (4.0-10.0)
[2023-04-05 06:35] LABS: ALBUMIN 2.7 G/DL (3.2-5.2); BILIRUBIN,TOTAL 0.9 MG/DL (0.3-1.2); CALCIUM LEVEL 8.5 MG/DL (8.3-10.6); CREATININE FOR GFR 1.71 MG/DL (0.70-1.30); GLOMERULAR FILTRATION RATE 41.5 (>42); MAGNESIUM LEVEL 1.8 MG/DL (1.8-2.4); POTASSIUM SERUM 4.6 MMOL/L (3.5-5.1); TOTAL PROTEIN 5.5 G/DL (5.7-8.2)
[2023-04-05] MEDS: NS 1,000 ML IV SCH (07:00)
[2023-04-05 07:37] VITALS: BP 156/90; TEMP 98.8; O2SAT 97
[2023-04-05 09:30] VITALS: BP 156/90
[2023-04-05] MEDS ORDERED: ACETAMINOPHEN TAB 650MG DOSE (2X325MG) PO PRN (11:20)
[2023-04-05] MEDS ORDERED: ONDANSETRON 4MG 2ML VIAL IV PRN (11:20)
[2023-04-05] MEDS ORDERED: FLEET ENEMA PR PRN (11:20)
[2023-04-05] MEDS ORDERED: ACETAMINOPHEN 650MG SUPP PR PRN (11:20)
[2023-04-05] MEDS ORDERED: MORPHINE 2 MG/ML 1ML VIAL IV PRN (11:20)
[2023-04-05] MEDS ORDERED: LORazepam 2 MG/ML 1ML VIAL IV PRN (11:20)
[2023-04-05] MEDS ORDERED: BISACODYL 10MG SUPP PR PRN (11:20)
[2023-04-05] MEDS ORDERED: ATROPINE SULFATE 1% OPHTH SOLN 2ML BTL SL PRN (11:20)
[2023-04-05 12:01] VITALS: BP 145/67; TEMP 97.4; O2SAT 98
[2023-04-06 06:08] LABS: BASO # 0.1 10^3/uL (0.0-0.2); BASO % 0.7 % (0.0-1.0); EOS # 0.5 10^3/uL (0.0-0.5); EOS % 6.3 % (0.0-3.0); HEMOGLOBIN 11.4 g/dl (13.5-17.5); LYMPH # 2.3 10^3/uL (1.5-5.0); LYMPH % 31.6 % (24.0-44.0); MEAN CORPUSCULAR HEMOGLOBIN 28.3 pg (27.0-33.0); MEAN CORPUSCULAR HGB CONC 32.6 g/dl (32.0-36.5); MEAN CORPUSCULAR VOLUME 86.8 fl (80.0-96.0); MONO # 0.5 10^3/uL (0.0-0.8); MONO % 7.1 % (2.0-8.0); NEUTROPHILS # 3.9 10^3/uL (1.5-8.5); PLATELET COUNT, AUTOMATED 250 10^3/uL (150-450); RED BLOOD COUNT 4.03 10^6/uL (4.30-6.10); WHITE BLOOD COUNT 7.2 10^3/uL (4.0-10.0)
[2023-04-06 06:39] LABS: ALBUMIN 2.3 G/DL (3.2-5.2); BILIRUBIN,TOTAL 0.5 MG/DL (0.3-1.2); CALCIUM LEVEL 8.3 MG/DL (8.3-10.6); CREATININE FOR GFR 1.7 MG/DL (0.70-1.30); GLOMERULAR FILTRATION RATE 41.8 (>42); MAGNESIUM LEVEL 1.7 MG/DL (1.8-2.4); POTASSIUM SERUM 4.4 MMOL/L (3.5-5.1); TOTAL PROTEIN 5.1 G/DL (5.7-8.2)
[2023-04-06 23:07] LABS: PSA TOTAL 2.1 ng/mL (0.0-4.0)
[2023-04-12] MEDS: ONDANSETRON 4MG ORAL DISINTEGRATING TAB PO PRN (04:05)
[2023-04-17] MEDS: HYOSCYAMINE SULFATE 0.125 MG SUBL TABLET PO PRN (07:43)
[2023-04-17] MEDS: SCOPOLAMINE 1MG TRANSDERMAL PATCH TOP PRN (07:44)
[2023-04-18] MEDS: LORazepam 1 MG TAB PO PRN (12:32)
[2023-04-19] MEDS: MORPHINE 10MG/0.5ML ORAL CONCENTRATE SOLUTION U/D SL PRN (02:19)
[2023-04-19] MEDS ORDERED: QUET1TAB17 PO (11:25)
[2023-04-19] MEDS ORDERED: MORP1SOL5 PO (11:25)
[2023-04-19] MEDS ORDERED: ATIV1TAB10 PO (11:25)
[2023-04-19] MEDS ORDERED: HYOS125TA PO (11:25)
== END 2023-04-21 00:01 | disposition expired | DRG 698 ==
LOC: EDBD 13:26 → M ED 13:26 → M ED INP 17:05 → ENRESERV 18:41 → M PCU 21:40 → M MSPAV 04-05 22:34
PROVIDERS: ADMIT Internal Medicine; ATTEND Internal Medicine
DX: T83.511A Infection and inflammatory reaction due to indwelling urethral catheter, initial encounter (principal); A41.9 Sepsis, unspecified organism; I21.A1 Myocardial infarction type 2; I50.32 Chronic diastolic (congestive) heart failure; C79.51 Secondary malignant neoplasm of bone; I13.0 Hypertensive heart and chronic kidney disease with heart failure and stage 1 through stage 4 chronic kidney disease, or unspecified chronic kidney disease; E87.20 Acidosis, unspecified; E87.1 Hypo-osmolality and hyponatremia; N17.9 Acute kidney failure, unspecified; N13.30 Unspecified hydronephrosis; Z66 Do not resuscitate; I25.10 Atherosclerotic heart disease of native coronary artery without angina pectoris; F39 Unspecified mood [affective] disorder; E11.42 Type 2 diabetes mellitus with diabetic polyneuropathy; I16.0 Hypertensive urgency; N39.0 Urinary tract infection, site not specified; I48.91 Unspecified atrial fibrillation; J44.9 Chronic obstructive pulmonary disease, unspecified; E87.6 Hypokalemia; E11.65 Type 2 diabetes mellitus with hyperglycemia; K21.9 Gastro-esophageal reflux disease without esophagitis; E11.22 Type 2 diabetes mellitus with diabetic chronic kidney disease; D64.9 Anemia, unspecified; F03.90 Unspecified dementia, unspecified severity, without behavioral disturbance, psychotic disturbance, mood disturbance, and anxiety; E78.5 Hyperlipidemia, unspecified; N18.30 Chronic kidney disease, stage 3 unspecified; C61 Malignant neoplasm of prostate; R33.9 Retention of urine, unspecified; I25.2 Old myocardial infarction; Z95.5 Presence of coronary angioplasty implant and graft; Z79.82 Long term (current) use of aspirin; Z79.4 Long term (current) use of insulin; Z79.2 Long term (current) use of antibiotics; Z79.52 Long term (current) use of systemic steroids; Z79.899 Other long term (current) drug therapy; Z88.0 Allergy status to penicillin; Z88.1 Allergy status to other antibiotic agents; Z11.52 Encounter for screening for COVID-19; Z87.891 Personal history of nicotine dependence